=== PATIENT | female | born 1960 | race Caucasian/White ===

== ENCOUNTER 2017-04-08 21:48 | Emergency (ER) | payer OTHER ==
[~2017-04-08] VITALS: Ht 175.3 cm; Wt 90.0 kg
[~2017-04-08 21:48] MED LIST: 1-ME1LIQ PO; ALBU8I INH; BIOT10004 PO; CALC500 PO; CHOL50006 PO; CYCL1PAK PO; CYMB30CA PO; DICY10CA13 PO; FLOV44AE IN; FURO1TAB93 PO; GABA300C3 PO; HYDR200T42 PO; LEFL20TA7 PO; LIDO5%T TOP; LISI-366 PO; LORA1TAB PO; METH4PAK PO; MORP1CAP63 PO; NABU500T PO; OMEP20TA PO; PRED5TAB PO; SIMV20 PO; SYNT25TA PO; TRAZ50TA4 PO; ULTR50TA PO
[2017-04-08 21:58] VITALS: BP 190/89; PULSE 94; RESP 18; TEMP 98.5; O2SAT 95
[2017-04-08 22:25] VITALS: BP 190/102; PULSE 90; RESP 18; O2SAT 94
--- NOTE | 2017-04-08 22:28 | PD ---
HPI Chief Complaint: Pain: Acute or Chronic Time Seen by Provider: 22:24 Travel History International Travel<30 days: No Contact w/Intl Traveler<30days: No Traveled to known affect area: No History of Present Illness HPI 56-year-old female patient with history of hypertension, CHF currently on Lasix , presents to the ER today for several months history of right leg pains, started to have increased swelling that is going up the right leg over the last several weeks. She denies any fevers, new injuries, chest pains, shortness of breath, or any other issues. She also has some history of chronic back pains and is currently waiting to see pain management. Modifying Factors: None Associated Signs & Symptoms: Right leg swelling, pain Risk Factors: None PFSH Past Medical History Arthritis: Yes (RA) Cancer: No Cardiovascular Problems: Yes Diabetes: No Genitourinary: No Hepatitis: No Hiatal Hernia: No Hypertension: Yes Immune Disorder: No Musculoskeletal: Yes (LOW BACK PAIN, HX OF ARTHRITIS ) Neurologic: Yes (RHEUMATIOD ARTHRILTIS , LUPUS ) Psychiatric: Yes (DEPRESSION ) Reproductive: No Respiratory: Yes (COLD JUST FINISHED ANTIBIOTIC ) Thyroid Disease: Yes (NODULES & GOITER ) ?: Not Past Surgical History Abdominal Surgery: Yes (CHOLESECTOMY ) Section: Yes Cholecystectomy: Yes Endocrine Surgery: No Gynecologic Surgery: Yes (3 C SECTIONS ) Oral Surgery: Yes (T AND A) Social History Alcohol Use: No Tobacco Use: No (QUIT JANUARY) Substance Use: No Allergies-Medications (Allergen,Severity, Reaction): Coded Allergies: clarithromycin (Unverified Allergy, Severe, Rash, 04/08/17) morphine (Unverified Allergy, Severe, SOB, RASH SWELLING, 04/08/17) methotrexate (Unverified Allergy, Intermediate, ELEVATED LIVER ENZYMES., ) adhesive (Unverified Allergy, Unknown, 04/08/17) latex (Verified Allergy, Unknown, RASH, 04/08/17) Uncoded Allergies: CODINE (Adverse Reaction, Severe, HALLUCINATION, 03/20/13) Reported Meds & Prescriptions Reported Meds & Active Scripts Active Reported Ventolin Hfa (Albuterol Sulfate) 8 Gm Aero 2 Puff INH Q6 * SHAKE WELL BEFORE USE * Oscal 500 (Calcium Carbonate) 500 Mg Tab 500 Mg PO BID Morphine Sulfate ER (Morphine Sulfate) 30 Mg Cap 30 Mg PO Q12 Lidocaine 5 % Oin 1 Applic TOP APPLY TO: Leflunomide 20 Mg Tab 20 Mg PO DAILY Cymbalta (Duloxetine HCl) 30 Mg Cap 30 Mg PO DAILY Biotin 1 000 Tab 1,000 Mcg PO Cyclobenzaprine Hcl (Cyclobenzaprine HCl) 10 Mg Tab 10 Mg PO TID Trazodone Hcl (Trazodone HCl) 50 Mg Tab 50 Mg PO BID Methylprednisolone 4 Mg Luis F 4 Mg PO DIRECTED Dicyclomine 10 mg (Dicyclomine HCl) 10 Mg Cap 10 Mg PO QID Flovent Hfa (Fluticasone Propionate) 44 Mcg Aer 2 Puff IN BID Vitamin D (Cholecalciferol) 5,000 Unit Tab 50,000 Unit PO WEEKLY Ultram (Tramadol HCl) 50 Mg Tab 50 Mg PO Q6 PRN Simvastatin 20 mg (Simvastatin) 20 Mg Tab 1 Tab PO HS Plaquenil (Hydroxychloroquine Sulfate) 200 Mg Tab 200 Mg PO DAILY Omeprazole 20 mg (Omeprazole) 20 Mg Tab 20 Mg PO DAILY Nabumetone 500 Mg Tab 500 Mg PO Q12 Lorazepam 1 Mg Tab 1 Mg PO TID Gabapentin 300 Mg Cap 300 Mg PO TID Dicyclomine 10 mg (Dicyclomine HCl) 10 Mg Cap 10 Mg PO TID Amlodipine Besylate 10 mg (Amlodipine Besylate) 10 Mg Tab 1 Tab PO DAILY Synthroid (Levothyroxine Sodium) Unknown Strength Tab Unknown Dose PO DAILY Prednisone 5 Mg Tab 5 Mg PO DAILY Lasix (Furosemide) 40 Mg Tab 40 Mg PO DAILY Lisinopril 40 mg (Lisinopril) 40 Mg Tab 40 Mg PO Review of Systems Except as stated in HPI: all other systems reviewed are Neg Physical Exam Narrative GENERAL: Well-developed middle-age female patient currently in mild distress. Awake and oriented 3. SKIN: Focused skin assessment warm/dry. HEAD: Atraumatic. Normocephalic. EYES: Pupils equal and round. No scleral icterus. No injection or drainage. ENT: No nasal bleeding or discharge. Mucous membranes pink and moist. NECK: Trachea midline. No JVD. Supple. CARDIOVASCULAR: Regular rate and rhythm. No murmur appreciated. RESPIRATORY: No accessory muscle use. Clear to auscultation. Breath sounds equal bilaterally. GASTROINTESTINAL: Abdomen soft, non-tender, nondistended. Hepatic and splenic margins not palpable. MUSCULOSKELETAL: No obvious deformities. No clubbing. No cyanosis. Notable pitting edema of the right leg, calf tenderness. NEUROLOGICAL: Awake and alert. No obvious cranial nerve deficits. Motor grossly within normal limits. Normal speech. PSYCHIATRIC: Appropriate mood and affect; insight and judgment normal. Data Data Last Documented VS Vital Signs Date Time Temp Pulse Resp B/P (MAP) Pulse Ox O2 Delivery O2 Flow Rate FiO2 04/08/17 22:25 90 18 190/102 (131) 94 Room Air 04/08/17 21:58 98.5 Orders Orders Complete Blood Count With Diff (04/08/17 22:24) Basic Metabolic Panel (Bmp) (04/08/17 22:24) B-Type Natriuretic Peptide (04/08/17 22:24) Prothrombin Time / Inr (Pt) (04/08/17 22:24) Act Partial Throm Time (Ptt) (04/08/17 22:24) Us Leg Venous Doppler (04/08/17 22:24) Labs Laboratory Tests Test 04/08/17 22:30 White Blood Count 13.1 TH/MM3 Red Blood Count 4.53 MIL/MM3 Hemoglobin 13.8 GM/DL Hematocrit 42.2 % Mean Corpuscular Volume 93.1 FL Mean Corpuscular Hemoglobin 30.5 PG Mean Corpuscular Hemoglobin Concent 32.8 % Red Cell Distribution Width 15.5 % Platelet Count 231 TH/MM3 Mean Platelet Volume 9.6 FL Neutrophils (%) (Auto) 51.3 % Lymphocytes (%) (Auto) 36.1 % Monocytes (%) (Auto) 9.4 % Eosinophils (%) (Auto) 2.1 % Basophils (%) (Auto) 1.1 % Neutrophils # (Auto) 6.8 TH/MM3 Lymphocytes # (Auto) 4.7 TH/MM3 Monocytes # (Auto) 1.2 TH/MM3 Eosinophils # (Auto) 0.3 TH/MM3 Basophils # (Auto) 0.1 TH/MM3 CBC Comment DIFF FINAL Differential Comment Prothrombin Time 9.1 SEC Prothromb Time International Ratio 0.9 RATIO Activated Partial Thromboplast Time 26.4 SEC Blood Urea Nitrogen 16 MG/DL Creatinine 0.94 MG/DL Random Glucose 97 MG/DL Calcium Level 8.3 MG/DL Sodium Level 141 MEQ/L Potassium Level 3.8 MEQ/L Chloride Level 105 MEQ/L Carbon Dioxide Level 28.7 MEQ/L Anion Gap 7 MEQ/L Estimat Glomerular Filtration Rate 61 ML/MIN B-Type Natriuretic Peptide 26 PG/ML MDM Medical Decision Making Medical Screen Exam Complete: Yes Emergency Medical Condition: Yes Medical Record Reviewed: Yes Interpretation(s) Laboratory Tests Test 04/08/17 22:30 White Blood Count 13.1 TH/MM3 (4.0-11.0) Monocytes (%) (Auto) 9.4 % (0.0-8.0) Monocytes # (Auto) 1.2 TH/MM3 (0-0.9) Prothrombin Time 9.1 SEC (9.8-11.6) Calcium Level 8.3 MG/DL (8.5-10.1) Estimat Glomerular Filtration Rate 61 ML/MIN (>89) Differential Diagnosis Right leg swelling and pain: Dependent edema versus DVT Narrative Course Ultrasound did not show any signs of significant DVT. She has a general tenderness over the legs but I do not see any signs of infections at this point. The compartments are not tight and not suspecting other acute processes. She has had no injuries. There may be some underlying dependent edema in this case and I have asked that she tries to keep her legs up and have her follow-up with primary care doctor. She has medications that she use on a regular basis for pain already which she can take. The plan was discussed with her and she states understanding. Diagnosis Primary Impression: Leg edema, right Disposition: 01 DISCHARGE HOME Condition: Stable SoontharoNiko james MD Apr 08, 2017 22:28
[2017-04-08 22:40] LABS: AUTOMATED NEUTROPHIL # 6.8 TH/MM3 (1.8-7.7); BASOPHIL # 0.1 TH/MM3 (0-0.2); BASOPHIL % 1.1 % (0.0-2.0); EOSINOPHIL # 0.3 TH/MM3 (0-0.4); EOSINOPHIL % 2.1 % (0.0-4.0); HEMATOCRIT 42.2 % (35.0-46.0); HEMOGLOBIN 13.8 GM/DL (11.6-15.3); LYMPH % 36.1 % (9.0-44.0); LYMPHOCYTE # 4.7 TH/MM3 (1.0-4.8); MEAN CELL VOLUME 93.1 FL (80.0-100.0); MEAN CORPUSCULAR HEMOGLOBIN 30.5 PG (27.0-34.0); MEAN CORPUSCULAR HGB CONC 32.8 % (32.0-36.0); MEAN PLATELET VOLUME 9.6 FL (7.0-11.0); MONO % 9.4 % (0.0-8.0); MONOCYTE # 1.2 TH/MM3 (0-0.9); NEUT % 51.3 % (16.0-70.0); PLATELET COUNT 231 TH/MM3 (150-450); RED BLOOD COUNT 4.53 MIL/MM3 (4.00-5.30); RED CELL DISTRIBUTION WIDTH 15.5 % (11.6-17.2); WHITE BLOOD COUNT 13.1 TH/MM3 (4.0-11.0)
[2017-04-08 22:54] LABS: BICARBONATE 28.7 MEQ/L (21.0-32.0); CALCIUM 8.3 MG/DL (8.5-10.1)
[2017-04-08 22:57] LABS: INTERNATIONAL NORMALIZED RATIO 0.9 RATIO; PROTHROMBIN TIME - PATIENT 9.1 SEC (9.8-11.6)
[2017-04-08 22:58] LABS: CREATININE 0.94 MG/DL (0.50-1.00)
--- NOTE | 2017-04-08 23:10 | RADRPT ---
EXAM DATE/TIME: 04/08/2017 22:51 [place] COMPARISON: No previous studies available for comparison. INDICATIONS : Right leg swelling and pain. MEDICAL HISTORY : Hypertension. Thyroid nodules. Goiter. Glasses. Dentures. Hyperlipidemia. Arthritis. Depression. Urinary tract infection. Nausea. Vomiting. SURGICAL HISTORY : Tonsillectomy. Cholecystectomy. section. Adenoidectomy. Left shoulder surgery. ENCOUNTER: Initial ACUITY: 1 month PAIN SCORE: 4/10 LOCATION: Right leg. TECHNIQUE: Venous ultrasound of the leg was performed from the inguinal ligament to the proximal calf. Real-joceline e, color Doppler and spectral tracing, compression and augmentation techniques were used. FINDINGS: There is normal compressibility of the deep venous system from the inguinal region to the proximal ca lf. No echogenic clot is seen in the lumen of the common femoral, femoral, popliteal, and posterior tibial veins. There is a normal response of the venous system to proximal and distal augmentation an d respiration. CONCLUSION: 1. No sonographic evidence for right lower extremity DVT. Kali Summers MD on April 08, 2017 at 23:09 Board Certified Radiologist. This report was verified electronically.
[2017-04-08] MEDS ORDERED: AMLO10TA2 PO (23:34)
[2017-04-08] MEDS ORDERED: BUPR300T PO (23:34)
[2017-04-08] MEDS ORDERED: LISI40TA PO (23:34)
[2017-04-08] MEDS ORDERED: FLUT50SP EACH NARE (23:34)
[2017-04-08] MEDS ORDERED: AZEL1SPR2 EACH NARE (23:34)
[2017-04-08] MEDS ORDERED: GABA300C5 PO (23:34)
[2017-04-08] MEDS ORDERED: clonidine (23:34)
[2017-04-08] MEDS ORDERED: ACIDCAP PO (23:34)
[2017-04-08] MEDS ORDERED: ESTR0.5T PO (23:34)
[2017-04-08] MEDS ORDERED: BIOTCAP PO (23:34)
[2017-04-08] MEDS ORDERED: CHOL5000 PO (23:34)
[2017-04-08] MEDS ORDERED: FURO20TA PO (23:34)
[2017-04-08] MEDS ORDERED: ENBR50IN2 SQ (23:34)
[2017-04-08] MEDS ORDERED: MEDR5TAB3 PO (23:34)
[2017-04-08] MEDS ORDERED: ESTR0.62 VAGINAL (23:34)
[2017-04-08] MEDS ORDERED: SIMV20TA PO (23:34)
[2017-04-08] MEDS ORDERED: DULC100C PO (23:34)
[2017-04-08] MEDS ORDERED: MS C30TA5 PO ×2 (23:34)
[2017-04-08] MEDS ORDERED: LEFL1TAB3 PO (23:34)
[2017-04-08] MEDS ORDERED: LEVO150T7 PO (23:34)
[2017-04-08] MEDS ORDERED: METH8TAB3 PO (23:34)
[2017-04-08] MEDS ORDERED: DULO1CAP3 PO (23:34)
[2017-04-08] MEDS ORDERED: PLAQ200T PO (23:34)
[2017-04-09 00:01] VITALS: BP 175/73
== END 2017-04-09 00:03 | disposition home or self-care (01) ==
LOC: PHED 21:48
DX: R60.0 Localized edema (principal); I11.0 Hypertensive heart disease with heart failure; I50.9 Heart failure, unspecified; M06.9 Rheumatoid arthritis, unspecified; M32.9 Systemic lupus erythematosus, unspecified; F32.9 Major depressive disorder, single episode, unspecified; E07.9 Disorder of thyroid, unspecified; Z87.891 Personal history of nicotine dependence
CPT/HCPCS: 80048; 83880; 85025; 85610; 85730; 93971; 99284

== ENCOUNTER → 2017-05-24 | Day surgery (SDC) | payer OTHER ==
[~2017-05-24] MED LIST changes: -1-ME1LIQ PO; +ACIDCAP PO; -ALBU8I INH; +AMLO10TA2 PO; +AZEL1SPR2 EACH NARE; -BIOT10004 PO; +BIOTCAP PO; +BUPIVACAINE HCL PF 0.25% 10 ML VIAL ONE; +BUPR300T PO; -CALC500 PO; +CHOL5000 PO; -CHOL50006 PO; -CYCL1PAK PO; -CYMB30CA PO; -DICY10CA13 PO; +DULC100C PO; +DULO1CAP3 PO; +ENBR50IN2 SQ; +ESTR0.5T PO; +ESTR0.62 VAGINAL; -FLOV44AE IN; +FLUT50SP EACH NARE; -FURO1TAB93 PO; +FURO20TA PO; -GABA300C3 PO; +GABA300C5 PO; -HYDR200T42 PO; +HYDROCORTISONE SOD SUCCINATE 100 MG VIAL ONE; +ISOSULFAN BLUE 50 MG/5 ML VIAL SQ ONE; +KETOROLAC TROMETHAMINE 30 MG/ML (IVP) VIAL ONE; +LACTATED RINGER'S 1000 ML INJ 1,000 ML ONE; +LEFL1TAB3 PO; -LEFL20TA7 PO; +LEVO150T7 PO; -LIDO5%T TOP; -LISI-366 PO; +LISI40TA PO; -LORA1TAB PO; +MEDR5TAB3 PO; +MEPERIDINE HCL 25 MG/ML VIAL ONE; -METH4PAK PO; +METH8TAB3 PO; +MIDAZOLAM HCL 2 MG/2 ML VIAL ONE; -MORP1CAP63 PO; +MS C30TA5 PO; -NABU500T PO; -OMEP20TA PO; +ONDANSETRON HCL 4 MG/2 ML VIAL IV PUSH ONE; +PLAQ200T PO; -PRED5TAB PO; +PROPOFOL 200 MG/20 ML AMP IV ONE; -SIMV20 PO; +SIMV20TA PO; +SODIUM CHLORIDE 0.9% INJ 10 ML ONE; -SYNT25TA PO; -TRAZ50TA4 PO; -ULTR50TA PO; +clonidine
--- NOTE | 2017-05-24 15:58 | MP ---
cc: Jyothi Chavez MD DATE OF OPERATION: 05/24/2017 DATE OF PROCEDURE: 05/24/2017 PREOPERATIVE DIAGNOSIS: Clinical stage I right breast cancer. POSTOPERATIVE DIAGNOSIS: Clinical stage I right breast cancer. PROCEDURE PERFORMED: Right breast needle localized lumpectomy, intraoperative radiation therapy, and right axillary sentinel lymph node biopsy. SURGEON: Jyothi Chavez MD ANESTHESIA: General via LMA device. INDICATIONS FOR PROCEDURE: The patient is a 56-year-old female with a clinical stage I right breast cancer. She has opted for breast conservation and intraoperative radiation and now presents for the procedure. FINDINGS AT THE TIME OF SURGERY: Three sentinel lymph nodes were identified. Number 1 had a count of 338, number 2 had a count of 161, and number 3 had a count of 66. Touch prep was not performed. A specimen ultrasound did demonstrate an intact lesion and biopsy clip within the specimen. DESCRIPTION OF PROCEDURE: After informed consent was obtained and site verification was performed, the patient was brought to the radiology suite where she underwent needle localization of her tumor at 10 o'clock 7 cm from the nipple, as well as peritumoral radionuclide injection. She was then brought to the major operating room where she underwent general anesthesia via an LMA device. She received a single dose of IV Ancef and sequential compression hose were placed, 3 mL of half-strength Lymphazurin were injected in the subareolar right breast and a 5-minute massage was performed. The right breast and arm were then prepped and draped in sterile fashion. A crescent incision was created at 10 o'clock 7 cm from the nipple near the localization wire after anesthetizing with 0.5% Marcaine plain. Both sharp and electrocautery dissection were used to mobilize the lumpectomy specimen and the wire was identified and secured with a hemostat. The wire was cut off the skin with a pin cutters and a 2-0 silk transfixion suture was placed at the wire entry point into the breast tissue. Circumferential dissection was then completed around the wire and the specimen was oriented with 2 sutures laterally, 1 long suture anteriorly, and 1 short suture superiorly. Inspection of the specimen did demonstrate that the superior and inferior margins appeared close and each of these was sharply reexcised with a stitch on the new margin. Hemostasis was easily obtained with electrocautery. The wounds were closed using interrupted 3-0 Vicryl subcutaneous suture and a 4-0 Monocryl subcuticular suture. Good hemostasis was noted and a #0 Prolene pursestring suture was placed in the subcutaneous tissue, approximately 1 cm below the skin. A 3.5 cm intraoperative radiation applicator was placed in the cavity and tightening the pursestring demonstrated good position of the catheter tip. Ultrasound was used to confirm that the superior, inferior, medial, and lateral distances between the skin and the applicator were greater than 2 cm. The applicator was then placed in the sterile dressing and secured to the radiation machine. The applicator was again placed in the lumpectomy cavity and the pursestring suture was secured. Ultrasound again confirmed good positioning of the applicator greater than 2 cm below the skin in all directions. Two moist laps as well as 2 lead small richards were then placed around the applicator and radiation therapy commenced for 17 minutes. Following completion of therapy, the pursestring suture was cut and the applicator was removed from the lumpectomy cavity. Good hemostasis was again noted and the wound was closed using interrupted 3-0 Vicryl subcutaneous sutures and a 4-0 Monocryl subcuticular suture. Attention was then turned to the axilla, where an incision was anesthetized at the inferior aspect of the right axillary hairline. Both sharp and electrocautery dissection were performed until the clavipectoral fascia was divided and the level one axilla was entered. There was some bulging near the chest wall above the long thoracic neurovascular bundles and is area of fatty tissue was dissected free from surrounding structures using the Harmonic scalpel. There was a sentinel node with a count of 338 in this tissue and some smaller adjacent nodes were sent as a permanent specimen. There was also a palpable lymph node in the axillary tail of [facility] and this was circumferentially dissected free from surrounding structures using Harmonic scalpel with the counts as noted. Hemostasis was easily obtained and the wound was closed using interrupted 3-0 Vicryl subcutaneous sutures and a 4-0 Monocryl subcuticular suture. Steri-Strips and a sterile dressing were applied. The patient tolerated the procedure well, with an estimated blood loss of less than 50 mL and she was extubated, and brought to the recovery room in good condition. Sponge and needle counts were correct at the conclusion of the case. The patient was extubated and brought to recovery in good condition. MD MARILYNN Yung/LACI , 03:03 PM , 03:57 PM
== END | disposition home or self-care (01) ==
LOC: ESDC 07:35
PROVIDERS: ATTEND Surgery
DX: C50.911 Malignant neoplasm of unspecified site of right female breast (principal)
CPT/HCPCS: 00400; 01610; 19294; 19301; 38525; 38792; 88305; 88307; J1720; J1885; J2175; J2250; J2405; J3010; J7120; Q9968; 77290; 77300; 77334; 77370; 77424

== ENCOUNTER → 2017-08-01 | Outpatient (CLI) | payer OTHER ==
[~2017-08-01] MED LIST changes: +ANAS1TAB PO; -BUPIVACAINE HCL PF 0.25% 10 ML VIAL ONE; +CALC1TAB87 PO; +CLON0.1T PO; +FENT100D T-DERMAL; +FENT50DI T-DERMAL; -HYDROCORTISONE SOD SUCCINATE 100 MG VIAL ONE; -ISOSULFAN BLUE 50 MG/5 ML VIAL SQ ONE; -KETOROLAC TROMETHAMINE 30 MG/ML (IVP) VIAL ONE; -LACTATED RINGER'S 1000 ML INJ 1,000 ML ONE; -MEPERIDINE HCL 25 MG/ML VIAL ONE; -MIDAZOLAM HCL 2 MG/2 ML VIAL ONE; +MULT-65 PO; -ONDANSETRON HCL 4 MG/2 ML VIAL IV PUSH ONE; -PROPOFOL 200 MG/20 ML AMP IV ONE; -SODIUM CHLORIDE 0.9% INJ 10 ML ONE
== END ==
LOC: CPRE 11:43
PROVIDERS: ATTEND Neurological Surgery
DX: Z01.812 Encounter for preprocedural laboratory examination (principal); M51.36 Other intervertebral disc degeneration, lumbar region; M51.16 Intervertebral disc disorders with radiculopathy, lumbar region
CPT/HCPCS: 87640; 87641

== ENCOUNTER 2017-10-13 12:02 | Inpatient (IN) ==
--- NOTE | 2017-10-13 13:23 | ED ---
HPI General Chief complaint: Fall Stated complaint: Fall x 0600 Lt Side Groin/Knee Pain Time Seen by Provider: 10/13/17 13:23 History of Present Illness HPI narrative: 57-year-old female with a history of hypertension, hyperlipidemia , chronic low back pain, RA presents to the emergency department for evaluation of left knee pain. The patient underwent an L5-S1 lumbar fusion in July [address] Servin. States that since then she has had dropfoot of the left leg. States that over the past 2 weeks her left leg has given out on her several times and caused her to fall. States that she ambulates with a walker however she still falls and fall onto her left side. States that she was seen by sports medicine last week and had an x-ray of her left knee and hip it was told that it was unremarkable. States that she has fallen twice since then and the left knee is causing her pain and is swollen. Pain is aggravated with movement and weightbearing. She is also having increased pain in her back near her surgical site since the falls. Denies any fever, chills, nausea, vomiting, numbness or tingling. She does have weakness in the left leg, reports this is worse over the last week since her falls. She takes methadone for pain and follows up with pain management. No other complaints. Related Data Home Medications Medication Instructions Recorded Confirmed acidophilus-pectin, citrus 1 tab PO DIRECTED 10/13/17 10/13/17 [Acidophilus Probiotic] anastrozole 1 mg PO DAILY 10/13/17 10/13/17 azelastine 2 spray INTRANASAL Q12H 10/13/17 10/13/17 biotin 2,500 mcg PO DAILY 10/13/17 10/13/17 bupropion HCl 300 mg PO QAM 10/13/17 10/13/17 cholecalciferol (vitamin D3) 5,000 unit PO DAILY 10/13/17 10/13/17 clonidine HCl 0.1 mg PO PRN 10/13/17 10/13/17 diltiazem HCl [DILT-XR] 180 mg PO DAILY 10/13/17 10/13/17 duloxetine 60 mg PO DAILY 10/13/17 10/13/17 fluticasone 1 spray INTRANASAL DAILY 10/13/17 10/13/17 furosemide 20 mg PO DAILY 10/13/17 10/13/17 hydroxychloroquine 200 mg PO BID 10/13/17 10/13/17 leflunomide 20 mg PO DAILY 10/13/17 10/13/17 levothyroxine 175 mcg PO DAILY 10/13/17 10/13/17 lisinopril 40 mg PO DAILY 10/13/17 10/13/17 methadone 10 mg PO Q4-6H PRN 10/13/17 10/13/17 methylprednisolone 4 mg PO DAILY 10/13/17 10/13/17 naproxen sodium [Aleve] 220 mg PO BID 10/13/17 10/13/17 pregabalin [Lyrica] 25 mg PO BID 10/13/17 10/13/17 simvastatin 20 mg PO QPM 10/13/17 10/13/17 Allergies Allergy/AdvReac Type Severity Reaction Status Date / Time clarithromycin Allergy Severe Rash Verified 10/13/17 12:14 codeine Allergy Severe ITCHING Verified 10/13/17 12:14 morphine Allergy Severe SOB, RASH Verified 10/13/17 12:14 SWELLING methotrexate Allergy Intermediate ELEVATED Verified 10/13/17 12:14 LIVER ENZYMES. adhesive Allergy Unknown Generalized Verified 10/13/17 12:14 Rash latex Allergy Unknown RASH Verified 10/13/17 12:14 Review of Systems ROS: all other systems reviewed are negative PMFSH Medical History Medical History FH: mastectomy (Acute) Foot drop, left (Acute) Left knee pain (Acute) Back pain (Acute) Breast cancer (Acute) Chest pain (Acute) Depression (Acute) Hypertension (Acute) Surgical History Surgical History H/O section (Acute) H/O shoulder surgery (Acute) History of back surgery (Acute) Social History Social History Substance History: No History of Abuse Second Hand Smoke Exposure: No Smoking Status: Former smoker Tobacco Type: Cigarettes How Often Do You Have a Drink Containing Alcohol: Never Recent Travel in [facility] within the Last 8 Weeks: No Recent Out of Country Travel within the Last 8 Weeks: No Immunization History Tetanus Immunization: <5 Years Hx Influenza Vaccine This Season: Yes Exam Narrative Exam Narrative: GENERAL: Well-nourished and well-developed pleasant patient in no acute distress who is nontoxic appearing. SKIN: Warm and dry without any obvious rashes or lesions. HEAD: Normocephalic and atraumatic. EYES: No injection, drainage, or hyphema noted. PERRLA. EOMI. ENT: No nasal drainage noted. Oropharynx is clear. NECK: Supple and the trachea is midline. CARDIOVASCULAR: Regular rate and rhythm. RESPIRATORY: Breath sounds are equal bilaterally with no accessory muscle use, wheezing, rhonchi, or crackles. MUSCULOSKELETAL: Bruising noted over left hand knuckles, reports injured her hand when she fell also. Mild swelling and tenderness to palpation of the left knee, patient holding in a flexed position, reports pain is increased with extension. No obvious deformities, swelling, cyanosis, or ecchymosis is present throughout the upper and lower extremities. Patient has full range of motion. Distal pulses are 2+ throughout. Left leg strength 4/5 from knee down , 5/5 hip flexors. 5/5 right leg. BACK: Surgical scar noted to lumbar spine with mild tenderness and swelling, no erythema. No obvious deformities or crepitus noted throughout the thoracic and lumbar vertebrae. NEUROLOGICAL: Awake, alert, and oriented. Normal speech and gait. Cranial nerves are grossly intact. Course Initial Documented Vital Signs Temperature 97.7 F 10/13/17 12:12 Pulse Rate 91 H 10/13/17 12:12 Respiratory Rate 18 10/13/17 12:12 Blood Pressure 174/103 H 10/13/17 12:12 Pulse Oximetry 98 10/13/17 12:12 Last Documented Vital Signs Temperature 97.7 F 10/13/17 12:12 Pulse Rate 87 10/13/17 18:39 Respiratory Rate 16 10/13/17 18:39 Blood Pressure 170/94 H 10/13/17 18:39 Pulse Oximetry 94 L 10/13/17 18:39 Medical Decision Making [facility] Narrative Medical decision making narrative: 57-year-old female presents to the emergency department for evaluation of left knee pain, back pain and hand pain status post multiple falls. Patient is afebrile, vital signs are stable. Patient has dropfoot secondary to recent L spine fusion in July 2017. Her leg continues to "give out" on her causing her to fall. X-rays will be obtained of the left hip , knee, left hand and CT imaging of the L-spine will be performed. Patient administered Dilaudid 1 mg IM. X-ray of the left knee is negative. X-ray of the left hand is negative. Patient refusing x-ray of the left hip due to significant pain when attempting to lay on the x-ray table even after a second dose of Dilaudid 1 mg IM. Patient also given Percocet 5325 mg orally for pain. CT of the lumbar spine shows a superior endplate fracture of L4 not present on prior MRI. Neural foraminal compromise bilateral L3-4, bilateral L4-5, bilateral L5-S1. Moderate thecal sac stenosis L3-4 and to a slight degree L4- 5. Lateral recess stenosis left L4-5 and left L5-S1. I called and spoke with the neurosurgeon on-call Dr. Johnson regarding the patient 's presentation. He reviewed the patient's images and requests her to be transferred to the main for further evaluation. Recommends patient NPO at midnight until otherwise specified. I spoke with Dr. Diaz [facility] who agrees to admit patient to his service. Medical Screen Exam Complete: Yes Emergency Medical Condition: Yes Differential Diagnosis Differential Diagnosis: Contusion versus fracture versus sprain versus radiculopathy Lab Data Result diagrams: 10/13/17 17:15 10/13/17 17:15 Lab Results 10/13/17 10/13/17 10/13/17 Range/Units 17:15 17:15 17:15 CBC w Diff Auto diff final WBC 11.3 H (4.0-11.0) th/mm3 RBC 4.61 (4.00-5.30) mil/mm3 Hgb 14.0 (11.6-15.3) gm/dL Hct 41.9 (35.0-46.0) % MCV 90.8 (80.0-100.0) fL MCH 30.4 (27.0-34.0) pg MCHC 33.4 (32.0-36.0) % RDW 16.0 (11.6-17.2) % Plt Count 276 (150-450) th/mm3 MPV 10.1 (7.0-11.0) fL Neut % (Auto) 61.9 (16.0-70.0) % Lymph % (Auto) 27.4 (9.0-44.0) % [place] % (Auto) 8.0 (0.0-8.0) % Eos % (Auto) 2.3 (0.0-4.0) % Baso % (Auto) 0.4 (0.0-2.0) % Neut # (Auto) 7.0 (1.8-7.7) th/mm3 Lymph # (Auto) 3.1 (1.0-4.8) th/mm3 [place] # (Auto) 0.9 (0.0-0.9) th/mm3 Eos # (Auto) 0.3 (0.0-0.4) th/mm3 Baso # (Auto) 0.0 (0.0-0.2) th/mm3 WBC Differential . Differential Comment . PT 9.8 (9.8-11.6) sec INR 1.0 Ratio APTT 30.4 H (24.3-30.1) sec Sodium 139 (136-145) meq/L Potassium 3.5 (3.5-5.1) meq/L Chloride 103 (98-107) meq/L Carbon Dioxide 30.6 (21.0-32.0) meq/L Anion Gap 5 (5-15) meq/L BUN 11 (7-18) mg/dL Creatinine 0.73 (0.50-1.00) mg/dL Estimated GFR 82 L (>89) mL/min Random Glucose 84 (74-106) mg/dL Calcium 8.8 (8.5-10.1) mg/dL Total Bilirubin 0.3 (0.2-1.0) mg/dL AST 25 (15-37) U/L ALT 35 (10-53) U/L Alkaline Phosphatase 134 H (45-117) U/L Total Protein 7.7 (6.4-8.2) g/dL Albumin 4.1 (3.4-5.0) g/dL Imaging Data Radiologist's impression: Hand X-Ray 10/13/17 13:47 CONCLUSION: Unremarkable study. Knee X-Ray 10/13/17 13:47 CONCLUSION: No evidence of recent bony injury. Lumbar Spine CT 10/13/17 13:47 CONCLUSION: 1. There is a fracture of superior endplate of L4 not present on the prior MRI as the appearance of a limbus vertebrae and postsurgical changes as above. 2. Neural foraminal compromise bilateral L3-4, bilateral L4-5, bilateral L5-S1. 3. 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 4. Lateral recess stenosis left L4-5 and left L5-S1. Discharge Plan Discharge Disposition Patient Disposition: 30 Still Patient Discharge Condition Condition: Stable Discharge Details Diagnosis: L4 vertebral fracture, Left leg weakness, Intractable back pain Physicians Team ED Provider: Niko Velazquez ED Midlevel Provider: Мария Leija Primary Care Provider: Juhi Cooper Attending Provider: Ceferino Diaz Other Providers: Raymond Johnson Discharge Interventions Interventions: Vital Signs Last Done: 10/13/17 18:39 Status ED Status: Admitted Patient
[2017-10-13] MEDS ORDERED: HYDROmorphone PF Inj 2 MG/ML Vial IM ONE ×2 (13:47→14:25)
--- NOTE | 2017-10-13 14:33 | XR ---
EXAM DATE: 10/13/2017 2:30 PM EDT AGE/SEX: 57 years / Female INDICATIONS: Fell today CLINICAL DATA: This is the patient's initial encounter. Patient reports that signs and symptoms have been present for 1 day and indicates a pain score of 9/10. MEDICAL/SURGICAL HISTORY: . Hypertension. Gastroesophageal reflux disease. Carcinoma, breast. A rthritis. Lupus. Fusion, lumbar. Cholecystectomy. section. Thyroidectomy. COMPARISON: No prior exams available for comparison. FINDINGS: Bony structures are intact and in normal alignment. Joints are intact without dislocation or signifi cant arthropathy. Osseous density is normal. Soft tissues are unremarkable. No radiopaque foreign bodies seen. CONCLUSION: No evidence of recent bony injury. Electronically signed by: Quoc Jones MD 10/13/2017 2:31 PM EDT
--- NOTE | 2017-10-13 15:30 | CT ---
EXAM DATE: 10/13/2017 3:19 PM EDT AGE/SEX: 57 years / Female INDICATIONS: Fall, Recent lumbar surgery per patient CLINICAL DATA: This is the patient's initial encounter. Patient reports that signs and symptoms have been present for 1 day and indicates a pain score of 9/10. MEDICAL/SURGICAL HISTORY: Carcinoma, breast. Hypertension. Mastectomy, right. section. L umbar surgery RADIATION DOSE: 40.33 CTDI (mGy) COMPARISON: [facility], MR LUMBAR SPINE W/O CONTRAST, 02/07/2017. . TECHNIQUE: Contiguous axial images were acquired with a multirow detector CT scanner without contras t. Multiplanar reconstructions in the sagittal and coronal plane were also performed. Using automate d exposure control and adjustment of the mA and/or kV according to patient size, radiation dose was k ept as low as reasonably achievable to obtain optimal diagnostic quality images. DICOM format image data is available electronically for review and comparison. FINDINGS: There is a fracture of the superior endplate of L4 at the appearance of a limbus vertebrae with a dis placed fragment. There is no spondylolisthesis. L1-L2: No appreciable compromise to the thecal sac, or the exiting nerve roots is seen. The neural foramina and lateral recesses are patent bilaterally. L2-L3: Slight bulging disc and hypertrophic changes are seen with indentation on the thecal sac and no significant compromise to the thecal sac or the exiting nerve roots. L3-L4: Significant degenerative changes are present in the disc space and facets. There is moderate neural foramina compromise bilaterally due to bulging disc and hypertrophic changes. There is moder ate overall thecal sac stenosis due to central disc/osteophyte complex and hypertrophic changes. L4-L5: There is evidence for prior laminectomy on the left. There is anterior fusion at this level with transpedicular surgical screws traversing L4, L5, and S1 on the left side. There is moderate gideon ral foramina compromise bilaterally due to bulging disc and hypertrophic changes. There is moderate to severe left-sided lateral recess compromise due to bulging disc and hypertrophic changes. Slight overall thecal sac stenosis is suspected. L5-S1: Significant degenerative changes are present in the disc space and facets. There is moderate to severe left-sided lateral recess compromise due to bulging disc and hypertrophic changes There is slight neural foramina compromise bilaterally due to bulging disc and hypertrophic changes. CONCLUSION: 1. There is a fracture of superior endplate of L4 not present on the prior MRI as the appearance of a limbus vertebrae and postsurgical changes as above. 2. Neural foraminal compromise bilateral L3-4, bilateral L4-5, bilateral L5-S1. 3. 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 4. Lateral recess stenosis left L4-5 and left L5-S1. Electronically signed by: Steven Baron MD 10/13/2017 3:28 PM EDT
--- NOTE | 2017-10-13 15:59 | XR ---
EXAM DATE: 10/13/2017 3:56 PM EDT AGE/SEX: 57 years / Female INDICATIONS: Pain due to fall. CLINICAL DATA: This is the patient's initial encounter. Patient reports that signs and symptoms have been present for 1 day and indicates a pain score of 9/10. MEDICAL/SURGICAL HISTORY: . Carcinoma, breast. Hypertension. . Mastectomy, right. se ction. Lumbar surgery COMPARISON: No prior exams available for comparison. FINDINGS: No definite fractures, or dislocations are identified. No definite lytic or sclerotic les ion is seen. The joint spaces are well maintained. CONCLUSION: Unremarkable study. Electronically signed by: Steven Baron MD 10/13/2017 3:57 PM EDT
[2017-10-13 17:21] LABS: Baso % (Auto) 0.4 % (0.0-2.0); Eos # (Auto) 0.3 th/mm3 (0.0-0.4); Eos % (Auto) 2.3 % (0.0-4.0); Hematocrit 41.9 % (35.0-46.0); Lymph # (Auto) 3.1 th/mm3 (1.0-4.8); Lymph % (Auto) 27.4 % (9.0-44.0); Mean Corpuscular HGB Conc 33.4 % (32.0-36.0); Mean Corpuscular Hemoglobin 30.4 pg (27.0-34.0); Mean Corpuscular Volume 90.8 fL (80.0-100.0); Mean Platelet Volume 10.1 fL (7.0-11.0); Mono # (Auto) 0.9 th/mm3 (0.0-0.9); Neut % (Auto) 61.9 % (16.0-70.0); Platelet Count 276 th/mm3 (150-450); Red Blood Count 4.61 mil/mm3 (4.00-5.30); White Blood Count 11.3 th/mm3 (4.0-11.0)
[2017-10-13 17:29] LABS: Chloride 103 meq/L (98-107); Potassium 3.5 meq/L (3.5-5.1); Sodium 139 meq/L (136-145)
[2017-10-13 17:32] LABS: Albumin 4.1 g/dL (3.4-5.0); Anion Gap 5 meq/L (5-15); Calcium 8.8 mg/dL (8.5-10.1); Carbon Dioxide 30.6 meq/L (21.0-32.0)
[2017-10-13 17:33] LABS: Blood Urea Nitrogen 11 mg/dL (7-18); Glucose,Random 84 mg/dL (74-106)
[2017-10-13 17:34] LABS: Activated Partial Thrombo Time 30.4 sec (24.3-30.1); Prothrombin Time 9.8 sec (9.8-11.6)
[2017-10-13 17:36] LABS: Alanine Aminotransferase 35 U/L (10-53); Aspartate Aminotransferase 25 U/L (15-37); Glomerular Filtration Rate 82 mL/min (>89)
[2017-10-13 17:37] LABS: Total Protein 7.7 g/dL (6.4-8.2)
[2017-10-13 17:38] LABS: Alkaline Phosphatase 134 U/L (45-117)
[2017-10-13] MEDS ORDERED: HYDROmorphone PF Inj 2 MG/ML Vial IV.PUSH PRN (18:14)
[2017-10-13] MEDS: KCL 20 mEq/D5W/NaCl 0.45% Inj 1,000 ML IV.CONT SCH (18:28)
[2017-10-13] MEDS: Methadone 10 MG Tablet PO PRN (22:05)
[2017-10-13] MEDS ORDERED: Non-Formulary Drug (Bupropion Hcl [Bupropion Hcl] 300 MG) PO SCH (22:15)
[2017-10-13] MEDS ORDERED: Acetaminophen 325 MG Tablet PO PRN (22:22)
[2017-10-13] MEDS ORDERED: Bisacodyl 10 MG Supp RECTAL PRN (22:22)
[2017-10-13] MEDS: HYDROmorphone PF Inj 2 MG/ML Vial IV.PUSH PRN (22:31)
[2017-10-14] MEDS: Pregabalin 25 MG Capsule PO SCH ×2 (00:07→12:42)
[2017-10-14] MEDS: Docusate Sodium 100 MG Capsule PO SCH ×2 (00:07→12:42)
[2017-10-14] MEDS: Hydroxychloroquine 200 MG Tablet PO SCH ×2 (00:07→12:42)
[2017-10-14] MEDS: HYDROmorphone PF Inj 2 MG/ML Vial IV.PUSH PRN ×3 (01:34→09:31)
[2017-10-14] MEDS: Methadone 10 MG Tablet PO PRN ×2 (02:36→06:23)
[2017-10-14] MEDS ORDERED: Levothyroxine 100 MCG Tablet PO SCH (06:00)
[2017-10-14] MEDS ORDERED: buPROPion 150 MG XL 24 HR Tablet PO SCH (06:00)
[2017-10-14] MEDS ORDERED: Levothyroxine 75 MCG Tablet PO SCH (06:00)
[2017-10-14] MEDS: KCL 20 mEq/D5W/NaCl 0.45% Inj 1,000 ML IV.CONT SCH (06:23)
--- NOTE | 2017-10-14 06:24 | XR ---
EXAM DATE: 10/14/2017 5:49 AM EDT AGE/SEX: 57 years / Female INDICATIONS: Cough. CLINICAL DATA: This is the patient's subsequent encounter. Patient reports that signs and symptoms h ave been present for 2 days and indicates a pain score of 0/10. MEDICAL/SURGICAL HISTORY: Carcinoma, breast. Hypertension. Mastectomy, right. sectio n. Lumbar surgery. COMPARISON: [facility], CHEST SINGLE AP, 03/20/2013. . FINDINGS: A single AP view of the chest demonstrates the lungs to be symmetrically aerated without evidence of mass, infiltrate or effusion. Minimal linear atelectasis within the left base. The cardiomediastinal contours are unremarkable. 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 CONCLUSION: Negative examination. Electronically signed by: Jace Stoner MD 10/14/2017 6:23 AM EDT
[2017-10-14] MEDS ORDERED: Anastrozole 1 MG Tablet PO SCH (09:00)
[2017-10-14] MEDS ORDERED: dilTIAZem CD 180 MG Capsule PO SCH (09:00)
[2017-10-14] MEDS ORDERED: Non-Formulary Drug (Leflunomide [Leflunomide] 20 MG) PO SCH (09:00)
[2017-10-14] MEDS ORDERED: Furosemide 20 MG Tablet PO SCH (09:00)
[2017-10-14] MEDS ORDERED: Duloxetine 60 MG DR Capsule PO SCH (09:00)
[2017-10-14] MEDS ORDERED: Non-Formulary Drug (Levothyroxine [Levothyroxine] 175 MCG) PO SCH (09:00)
[2017-10-14] MEDS ORDERED: AZELASTINE NASAL SCH (09:00)
[2017-10-14] MEDS ORDERED: DILTIAZEM HCL 180 MG PO SCH (09:00)
[2017-10-14] MEDS ORDERED: Lisinopril 20 MG Tablet PO SCH (09:00)
--- NOTE | 2017-10-14 09:12 | P.HP ---
<Tiffany Cano W - Last Filed: 10/14/17 11:53> History of Present Illness Primary Care Physician: Juhi Cooper Chief Complaint: Fall Lt Knee Pain History of Present Illness: This is a 57-year-old female with a history of hypertension, hyperlipidemia, chronic low back pain, RA, [place] esophagus, Right breast cancer, Chronic Kidney disease, Colon polyps, Degenerative cervical disc, Diverticulosis, GERD, Hypertension, Hypothyroidism s/p thyroidectomy who presents to the emergency department for evaluation of left knee pain. The patient underwent an L5-S1 lumbar fusion in July [address] Servin. States that since then she has had dropfoot of the left leg. States that over the past 2 weeks her left leg has given out on her several times and caused her to fall. States that she ambulates with a walker however she still falls and fall onto her left side. States that she was seen by sports medicine last week and had an x-ray of her left knee and hip it was told that it was unremarkable. States that she has fallen twice since then and the left knee is causing her pain and is swollen. Pain is aggravated with movement and weightbearing. She is also having increased pain in her back near her surgical site since the falls. Denies any fever, chills, nausea, vomiting, numbness or tingling. She does have weakness in the left leg, reports this is worse over the last week since her falls. She takes methadone for pain and follows up with pain management. No other complaints. PAST MEDICAL HISTORY: [place] esophagus Right breast invasive moderately differentiated carcinoma s/p lumpectomy with sentinel lymph node biopsy and intraoperative radiation 05/24/2017 Chronic Kidney disease Colon polyps Degenerative cervical disc Diverticulosis GERD (gastroesophageal reflux disease) Hemorrhoids Hypertension Hypothyroidism s/p thyroidectomy Rheumatoid arthritis PAST SURGICAL HISTORY: 3 sections Cholecystectomy Colonoscopy - 2014 EGD with biopsy - 2014 Shoulder surgery Thyroidectomy Tonsillectomy Right breast lumpectomy with sentinel lymph node biopsy and intraoperative radiation 05/24/2017 FAMILY HISTORY: Ms. Dobbs's mother is alive. Her father is . Ms. Dobbs has 2 sons: 2 alive. She has 1 daughter who is alive. SOCIAL HISTORY: Ms. Dobbs is . Occasional ETOH use She was a daily smoker who has smoked 1.0 pack/day for 30 years reports that she has quit smoking, now using E-cigarettes - Diagnosis (1) Lumbar foraminal stenosis (2) L4 vertebral fracture Inpatient Certification: I certify that the inpatient services were ordered in accordance with Medicare regulations governing the order. This includes certification that hospital inpatient services are reasonable and necessary and in the case of services not specified as inpatient-only under 42 CFR 419.22(n), that they are appropriately provided as inpatient services in accordance to with the 2-midnight benchmark under 43 CFR 412.3(e) Estimated Total Length of Stay (Days): 3 Plans for Post Hospital Care: Not yet determined Review of Systems All other systems reviewed negative except as stated in HPI PMFSH - History History Provided By: Patient, Family Member - Medical History Medical History: Medical History (Last Reviewed 10/14/17 @ 07:37 by Luiz Edwards) FH: mastectomy Foot drop, left Left knee pain Back pain Breast cancer Chest pain Depression Hypertension - Surgical History Surgical History: Surgical History (Last Reviewed 10/14/17 @ 10:04 by Raymond Johnson MD) H/O section H/O shoulder surgery History of back surgery - Tobacco History Second Hand Smoke Exposure: No Tobacco Use In Past 30 Days: No Smoking Status: Former smoker Tobacco Type: Cigarettes - Alcohol History How Often Do You Have a Drink Containing Alcohol: Never - Substance Use History Substance History: No History of Abuse - Travel History Recent Travel in the [place] Within the Last 8 Weeks: No Recent Travel Out of the Country Within the Last 8 Weeks: No - Immunization History Tetanus Immunization: <5 Years Hx Influenza Vaccine This Season: Yes Medications and Allergies Allergies Allergy/AdvReac Type Severity Reaction Status Date / Time clarithromycin Allergy Severe Rash Verified 10/13/17 12:14 codeine Allergy Severe ITCHING Verified 10/13/17 12:14 morphine Allergy Severe SOB, RASH Verified 10/13/17 12:14 SWELLING methotrexate Allergy Intermediate ELEVATED Verified 10/13/17 12:14 LIVER ENZYMES. adhesive Allergy Unknown Generalized Verified 10/13/17 12:14 Rash latex Allergy Unknown RASH Verified 10/13/17 12:14 Home Medications Medication Instructions Recorded Confirmed Type acidophilus-pectin, citrus 1 tab PO DIRECTED 10/13/17 10/13/17 History [Acidophilus Probiotic] anastrozole 1 mg PO DAILY 10/13/17 10/13/17 History azelastine 2 spray INTRANASAL Q12H 10/13/17 10/13/17 History biotin 2,500 mcg PO DAILY 10/13/17 10/13/17 History bupropion HCl 300 mg PO QAM 10/13/17 10/13/17 History cholecalciferol (vitamin D3) 5,000 unit PO DAILY 10/13/17 10/13/17 History clonidine HCl 0.1 mg PO PRN 10/13/17 10/13/17 History diltiazem HCl [DILT-XR] 180 mg PO DAILY 10/13/17 10/13/17 History duloxetine 60 mg PO DAILY 10/13/17 10/13/17 History fluticasone 1 spray INTRANASAL DAILY 10/13/17 10/13/17 History furosemide 20 mg PO DAILY 10/13/17 10/13/17 History hydroxychloroquine 200 mg PO BID 10/13/17 10/13/17 History leflunomide 20 mg PO DAILY 10/13/17 10/13/17 History levothyroxine 175 mcg PO DAILY 10/13/17 10/13/17 History lisinopril 40 mg PO DAILY 10/13/17 10/13/17 History methadone 10 mg PO Q4-6H PRN 10/13/17 10/13/17 History methylprednisolone 4 mg PO DAILY 10/13/17 10/13/17 History naproxen sodium [Aleve] 220 mg PO BID 10/13/17 10/13/17 History pregabalin [Lyrica] 25 mg PO BID 10/13/17 10/13/17 History simvastatin 20 mg PO QPM 10/13/17 10/13/17 History omeprazole magnesium [Prilosec OTC] 20 mg PO BID 10/14/17 10/14/17 History Active Medications: Active Medications Acetaminophen (Tylenol) 650 mg PO Q4H PRN PRN Reason: Temp > 100.4 Al Hydroxide/Mg Hydroxide (Milk Of Magnesia Liq) 30 ml PO Q12H PRN PRN Reason: Mild Constipation Anastrozole (Arimidex) 1 mg PO DAILY SHERIE Bisacodyl (Dulcolax Supp) 10 mg RECTAL DAILY PRN PRN Reason: SEVERE CONSITIPATION Bupropion HCl (Wellbutrin Xl) 300 mg PO DAILY@0600 [facility] Last Admin: 10/14/17 05:42 Dose: 300 mg Clonidine HCl (Catapres) 0.2 mg PO Q6H PRN PRN Reason: HYPERTENSION Last Admin: 10/13/17 18:42 Dose: 0.2 mg Cyclobenzaprine HCl (Flexeril) 10 mg PO Q12H PRN PRN Reason: MUSCLE SPASM Last Admin: 10/14/17 00:08 Dose: 10 mg Diltiazem HCl (Cardizem Cd 24hr) 180 mg PO DAILY [facility] Docusate Sodium (Colace) 100 mg PO BID [facility] Last Admin: 10/14/17 00:07 Dose: 100 mg Duloxetine HCl (Cymbalta) 60 mg PO DAILY [facility] Fluticasone Propionate (Flonase Nasal [place]) 1 spray EACH NARE DAILY [facility] Furosemide (Lasix) 20 mg PO DAILY [facility] Hydromorphone HCl (Dilaudid Pf Inj) 1 mg IV.PUSH Q3H PRN PRN Reason: BREAKTHROUGH PAIN Last Admin: 10/14/17 04:41 Dose: 1 mg Hydroxychloroquine Sulfate (Plaquenil) 200 mg PO BID [facility] Last Admin: 10/14/17 00:07 Dose: 200 mg Potassium Chloride/Dextrose/Sod Cl (D5w/1/2ns + Kcl 20 Meq Inj) 1,000 mls @ 85 mls/hr IV.CONT .[id number] [facility] Last Admin: 10/14/17 06:23 Dose: 85 mls/hr Lactulose (Lactulose Liq) 30 ml PO DAILY PRN PRN Reason: SEVERE CONSITIPATION Leflunomide (Arava) 20 mg PO DAILY [facility] Levothyroxine Sodium (Synthroid) 100 mcg PO DAILY@0600 [facility] Last Admin: 10/14/17 05:42 Dose: 100 mcg Levothyroxine Sodium (Synthroid) 75 mcg PO DAILY@0600 [facility] Last Admin: 10/14/17 05:42 Dose: 75 mcg Lisinopril (Prinivil) 40 mg PO DAILY [facility] Methadone HCl (Dolophine) 10 mg PO Q4H PRN PRN Reason: PAIN SCALE 1 TO 10 Last Admin: 10/14/17 06:23 Dose: 10 mg Ondansetron HCl (Zofran Inj) 4 mg IV.PUSH Q6H PRN PRN Reason: NAUSEA OR VOMITING Pat Own Med: Azelastine Nasal [place] 0 each NASAL Q12HR [facility] Pravastatin Sodium (Pravachol) 40 mg PO QPM [facility] Pregabalin (Lyrica) 25 mg PO BID [facility] Last Admin: 10/14/17 00:07 Dose: 25 mg Sennosides (Senokot) 17.2 mg PO Q12H PRN PRN Reason: Moderate Constipation Vitamin D (Vitamin D3) 5,000 unit PO DAILY [facility] Exam Vital signs: Vital Signs 10/13/17 12:12 10/13/17 15:23 10/13/17 16:36 Temperature 97.7 F Pulse Rate 91 H Respiratory Rate 18 16 16 Blood Pressure 174/103 H Pulse Oximetry 98 10/13/17 17:15 10/13/17 18:39 10/13/17 19:40 Temperature Pulse Rate 87 87 88 Respiratory Rate 16 16 18 Blood Pressure 191/99 H 170/94 H 167/80 H Pulse Oximetry 97 94 L 96 10/13/17 21:50 10/14/17 04:00 Temperature 98.0 F 98.6 F Pulse Rate 79 93 H Respiratory Rate 20 20 Blood Pressure 152/72 H 152/79 H Pulse Oximetry 97 98 Intake & Output 10/13/17 10/14/17 10/14/17 18:59 06:59 18:59 Intake Total 1000 / 1000 Balance 1000 / 1000 Weight 85 kg 83.915 kg Intake: IV 1000 / 1000 D5W/1/2NS + KCL 20 mEq Inj 1, 1000 / 1000 000 ML @ 85 mls/hr IV.CONT . [id number] [facility] Rx#:[id number] Other: # Voids 2 Weight On Admission 83.915 kg Narrative: GENERAL: This is a well-nourished, well-developed patient, drowsy post pain medication SKIN: healing ecchymosis bilateral upper and lower extremities CARDIOVASCULAR: Regular rate and rhythm RESPIRATORY: Clear to auscultation. Breath sounds equal bilaterally. GASTROINTESTINAL: Abdomen soft, non-tender, nondistended. Normal active bowel sounds MUSCULOSKELETAL: Extremities without clubbing, cyanosis, or edema. NEURO: able to awaken o voice then drifts off to sleep during interview. Moves all ext x4. Left foot drop noted Results - Labs CBC & Chem 7: 10/13/17 17:15 10/13/17 17:15 Labs: Laboratory Results - last 24 hr 10/13/17 10/13/17 10/13/17 17:15 17:15 17:15 CBC w Diff Auto diff final WBC 11.3 H RBC 4.61 Hgb 14.0 Hct 41.9 MCV 90.8 MCH 30.4 MCHC 33.4 RDW 16.0 Plt Count 276 MPV 10.1 Neut % (Auto) 61.9 Lymph % (Auto) 27.4 [place] % (Auto) 8.0 Eos % (Auto) 2.3 Baso % (Auto) 0.4 Neut # (Auto) 7.0 Lymph # (Auto) 3.1 [place] # (Auto) 0.9 Eos # (Auto) 0.3 Baso # (Auto) 0.0 WBC Differential . Differential Comment . PT 9.8 INR 1.0 APTT 30.4 H Sodium 139 Potassium 3.5 Chloride 103 Carbon Dioxide 30.6 Anion Gap 5 BUN 11 Creatinine 0.73 Estimated GFR 82 L Random Glucose 84 Calcium 8.8 Total Bilirubin 0.3 AST 25 ALT 35 Alkaline Phosphatase 134 H Total Protein 7.7 Albumin 4.1 - Imaging Impressions Hand X-Ray 10/13/17 13:47 CONCLUSION: Unremarkable study. Knee X-Ray 10/13/17 13:47 CONCLUSION: No evidence of recent bony injury. Lumbar Spine CT 10/13/17 13:47 CONCLUSION: 1. There is a fracture of superior endplate of L4 not present on the prior MRI as the appearance of a limbus vertebrae and postsurgical changes as above. 2. Neural foraminal compromise bilateral L3-4, bilateral L4-5, bilateral L5-S1. 3. 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 4. Lateral recess stenosis left L4-5 and left L5-S1. Chest X-Ray 10/14/17 00:00 CONCLUSION: Negative examination. Caprini VTE Risk Assessment Caprini VTE Risk Assessment: No/Low Risk (score <= 1) Caprini Risk Assessment Model: Point Value = 1 Point Value = 2 Point Value = 3 Point Value = 5 Age 41-60 Minor surgery BMI > 25 kg/m2 Swollen legs Varicose veins or History of unexplained or recurrent spontaneous Oral contraceptives or hormone replacement Sepsis (< 1 month) Serious lung disease, including pneumonia (< 1 month) Abnormal pulmonary function Acute myocardial infarction Congestive heart failure (< 1 month) History of inflammatory bowel disease Medical patient at bed rest Age 61-74 Arthroscopic surgery Major open surgery (> 45 min) Laparoscopic surgery (> 45 min) Malignancy Confined to bed (> 72 hours) Immobilizing plaster cast Central venous access Age >= 75 History of VTE Family history of VTE Factor V Leiden Prothrombin [id number] Lupus anticoagulant Anticardiolipin antibodies Elevated serum homocysteine Heparin-induced thrombocytopenia Other congenital or acquired thrombophilia Stroke (< 1 month) Elective arthroplasty Hip, pelvis, or leg fracture Acute spinal cord injury (< 1 month) Prophylaxis Regimen: Total Risk Factor Score Risk Level Prophylaxis Regimen 0-1 Low Early ambulation 2 Moderate Order ONE of the following: *Sequential Compression Device (SCD) *Heparin 5000 units SQ BID 3-4 Higher Order ONE of the following medications: *Heparin 5000 units SQ TID *Enoxaparin/Lovenox 40 mg SQ daily (WT < 150 kg, CrCl > 30 mL/min) *Enoxaparin/Lovenox 30 mg SQ daily (WT < 150 kg, CrCl > 10-29 mL/min) *Enoxaparin/Lovenox 30 mg SQ BID (WT < 150 kg, CrCl > 30 mL/min) AND/OR *Sequential Compression Device (SCD) 5 or more Highest Order ONE of the following medications: *Heparin 5000 units SQ TID (Preferred with Epidurals) *Enoxaparin/Lovenox 40 mg SQ daily (WT < 150 kg, CrCl > 30 mL/min) *Enoxaparin/Lovenox 30 mg SQ daily (WT < 150 kg, CrCl > 10-29 mL/min) *Enoxaparin/Lovenox 30 mg SQ BID (WT < 150 kg, CrCl > 30 mL/min) AND *Sequential Compression Device (SCD) Assessment and Plan - Assessment (1) Lumbar foraminal stenosis Code(s): M99.83 - Other biomechanical lesions of lumbar region Status: Acute Plan: This is a 57-year-old female with a history of hypertension, hyperlipidemia, chronic low back pain, RA, [place] esophagus, Right breast cancer, Chronic Kidney disease, Colon polyps, Degenerative cervical disc, Diverticulosis, GERD, Hypertension, Hypothyroidism s/p thyroidectomy who presents to the emergency department for evaluation of left knee pain. The patient underwent an L5-S1 lumbar fusion in July [address] Servin. States that since then she has had dropfoot of the left leg. States that over the past 2 weeks her left leg has given out on her several times and caused her to fall. States that she ambulates with a walker however she still falls and fall onto her left side. States that she was seen by sports medicine last week and had an x-ray of her left knee and hip it was told that it was unremarkable. States that she has fallen twice since then and the left knee is painful and swollen. Pain is aggravated with movement and weightbearing. She is also having increased pain in her back near her surgical site since the falls. Denies any fever, chills, nausea, vomiting, numbness or tingling. She does have weakness in the left leg , reports this is worse over the last week since her falls. She takes methadone for pain and follows up with pain management. No other complaints. Lumbar stenosis Fracture of superior endplate of L4 s/p L5-S1 lumbar fusion in July [address] Servin Hand X-Ray 10/13/17 Unremarkable study. Lumbar Spine CT 10/13/17 1. There is a fracture of superior endplate of L4 not present on the prior MRI as the appearance of a limbus vertebrae and postsurgical changes as above. 2. Neural foraminal compromise bilateral L3-4, bilateral L4-5, bilateral L5- S1. 3. 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 4. Lateral recess stenosis left L4-5 and left L5-S1. Chest X-Ray 10/14/17 Negative examination. ER provider spoke with the neurosurgeon on-call Dr. Johnson regarding the patient' s presentation. He reviewed the patient's images and requests her to be transferred to the main for further evaluation. Recommends patient NPO at midnight until otherwise specified. - acute or subacute L4 fracture, evaluated by neurosurgery feel that fracture occurred sometime in the past 3 mouths would recommend that she wear an TLSO brace, which can be obtained from and fitted by [employer] - Dilaudid as needed for pain - methadone 10 mg PO TID was started by outpatient pain management 10/08 Post-op left lower extremity weakness and left foot drop s/p L5-S1 lumbar fusion in July [address] Servin Lum[address] Spine CT 10/13/17 1. There is a fracture of superior endplate of L4 not present on the prior MRI as the appearance of a limbus vertebrae and postsurgical changes as above. 2. Neural foraminal compromise bilateral L3-4, bilateral L4-5, bilateral L5- S1. 3. 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 4. Lateral recess stenosis left L4-5 and left L5-S1. ER provider spoke with the neurosurgeon on-call Dr. Johnson regarding the patient' s presentation. He reviewed the patient's images and requests her to be transferred to the main for further evaluation. Recommends patient NPO at midnight until otherwise specified. - Neurosurgery recommending noncontrast MRI of the lumbar spine to get a better look at her nerve roots, and assess whether there is any ongoing nerve root compromise, or any significant cauda equina compression from the bone graft material in the lateral recess, for the postsurgical leg weakness, would recommend. follow with Dr. Servin will be back this week, and would be able to assess these images and visit the patient. Left knee pain - Left Knee X-Ray 10/13/17 No evidence of recent bony injury. - MRI of her left knee ordered per neurosurgery, consider consultation to orthopedic surgery consultation if the MRI reveals any injury. Frequent falls Narcotic dependency Patient follows with outpatient pain management, Dr. Katt Schulte recently stopped Duragesic patch and was started on methadone 10 mg PO TID 10/08 Patient also takes Flexeril 20 mg PO QHS Patient states last BM 10/12 will obtain KUB It is highly concerning that patient's medication regiment in addition to her left foot drop could be contributing to her frequent falls Even in the hospital patient currently appears drowsy and continues to ask for more pain medication -> in fact will decrease Dilaudid and decrease methadone to Q8H concerned that patient is at increased risk of falling due to sedation will request 1 to 1 sitter for safety Discussed with RN and charge nurse consult PT Polypharmacy It would be best for this patient's medication to be decreased/consolidated as much as possible, will continue to try to decrease/consolidated while in the hospital. this will likely best be done/continues in the outpatient setting Depression/anxiety continue home Cymbalta add Ativan 1 mg Q6H as needed for anxiety depression/anxiety likely contributing to pain perception Right breast cancer patient follows with Dr. Joyce outpatient invasive moderately differentiated carcinoma s/p lumpectomy with sentinel lymph node biopsy and intraoperative radiation 05/24/2017, with Dr. Chavez Continue anastrozole Hypertension Continue home Lisinopril 40 mg daily and diltiazem 180 mg daily Hypothyroidism s/p thyroidectomy Patient follows outpatient with Dr. Mcduffie continue home levothyroxine 175 mcg daily GERD [place] Esophagitis patient follows outpatient with Dr. Rodrigez Continue patient's home Prilosec 20 mg BID Rheumatoid arthritis Continue home Leflunomide 20 mg daily, hydroxychloroquine DVT prophylaxis with SCDs (2) L4 vertebral fracture Code(s): S32.049A - Unspecified fracture of fourth lumbar vertebra, initial encounter for closed fracture Status: Acute <Ceferino Diaz - Last Filed: 10/14/17 16:25> History of Present Illness Primary Care Physician: Juhi Cooper - Diagnosis (1) Lumbar foraminal stenosis (2) L4 vertebral fracture Inpatient Certification: I certify that the inpatient services were ordered in accordance with Medicare regulations governing the order. This includes certification that hospital inpatient services are reasonable and necessary and in the case of services not specified as inpatient-only under 42 CFR 419.22(n), that they are appropriately provided as inpatient services in accordance to with the 2-midnight benchmark under 43 CFR 412.3(e) [facility] - Medical History Medical History: Medical History (Last Reviewed 10/14/17 @ 07:37 by Luiz Edwards) FH: mastectomy Foot drop, left Left knee pain Back pain Breast cancer Chest pain Depression Hypertension - Surgical History Surgical History: Surgical History (Last Reviewed 10/14/17 @ 10:04 by Raymond Johnson MD) H/O section H/O shoulder surgery History of back surgery Medications and Allergies Active Medications: Active Medications Acetaminophen (Tylenol) 650 mg PO Q4H PRN PRN Reason: pain 1-3, fever > 100.4 Al Hydroxide/Mg Hydroxide (Milk Of Magnesia Liq) 30 ml PO Q12H PRN PRN Reason: Mild Constipation Albuterol (Ventolin Hfa Inh) 2 puff INH Q4H PRN PRN Reason: SHORTNESS OF BREATH/WHEEZING Anastrozole (Arimidex) 1 mg PO DAILY [facility] Last Admin: 10/14/17 12:42 Dose: Not Given Bisacodyl (Dulcolax Supp) 10 mg RECTAL DAILY PRN PRN Reason: SEVERE CONSITIPATION Bupropion HCl (Wellbutrin Xl) 300 mg PO DAILY@0600 [facility] Last Admin: 10/14/17 05:42 Dose: 300 mg Clonidine HCl (Catapres) 0.2 mg PO Q6H PRN PRN Reason: HYPERTENSION Last Admin: 10/13/17 18:42 Dose: 0.2 mg Cyclobenzaprine HCl (Flexeril) 20 mg PO HS PRN PRN Reason: MUSCLE SPASM Diltiazem HCl (Cardizem Cd 24hr) 180 mg PO DAILY [facility] Last Admin: 10/14/17 09:33 Dose: 180 mg Docusate Sodium (Colace) 100 mg PO BID [facility] Last Admin: 10/14/17 12:42 Dose: Not Given Duloxetine HCl (Cymbalta) 60 mg PO HS [facility] Fluticasone Propionate (Flonase Nasal [place]) 1 spray EACH NARE DAILY [facility] Last Admin: 10/14/17 12:42 Dose: Not Given Furosemide (Lasix) 20 mg PO DAILY [facility] Last Admin: 10/14/17 12:42 Dose: Not Given Hydromorphone HCl (Dilaudid Pf Inj) 1 mg IV.PUSH Q4H PRN PRN Reason: BREAKTHROUGH PAIN Last Admin: 10/14/17 14:15 Dose: 1 mg Hydroxychloroquine Sulfate (Plaquenil) 200 mg PO BID [facility] Last Admin: 10/14/17 12:42 Dose: Not Given Lactulose (Lactulose Liq) 30 ml PO DAILY PRN PRN Reason: SEVERE CONSITIPATION Leflunomide (Arava) 20 mg PO DAILY [facility] Last Admin: 10/14/17 12:42 Dose: Not Given Levothyroxine Sodium (Synthroid) 100 mcg PO DAILY@0600 [facility] Last Admin: 10/14/17 05:42 Dose: 100 mcg Levothyroxine Sodium (Synthroid) 75 mcg PO DAILY@0600 [facility] Last Admin: 10/14/17 05:42 Dose: 75 mcg Lisinopril (Prinivil) 40 mg PO DAILY [facility] Last Admin: 10/14/17 09:33 Dose: 40 mg Lorazepam (Ativan Inj) 1 mg IV.PUSH Q6H PRN PRN Reason: ANXIETY AND/OR AGITATION Last Admin: 10/14/17 13:37 Dose: 1 mg Methadone HCl (Dolophine) 10 mg PO Q8H PRN PRN Reason: PAIN SCALE 1 TO 10 Last Admin: 10/14/17 12:33 Dose: 10 mg Ondansetron HCl (Zofran Inj) 4 mg IV.PUSH Q6H PRN PRN Reason: NAUSEA OR VOMITING Pantoprazole Sodium (Protonix) 20 mg PO BID [facility] Pat Own Med: Azelastine Nasal [place] 0 each NASAL Q12HR [facility] Pravastatin Sodium (Pravachol) 40 mg PO QPM [facility] Pregabalin (Lyrica) 25 mg PO BID [facility] Last Admin: 10/14/17 12:42 Dose: Not Given Sennosides (Senokot) 17.2 mg PO Q12H PRN PRN Reason: Moderate Constipation Vitamin D (Vitamin D3) 5,000 unit PO DAILY [facility] Last Admin: 10/14/17 12:42 Dose: Not Given Exam Vital signs: Vital Signs 10/13/17 16:36 10/13/17 17:15 10/13/17 18:39 Temperature Pulse Rate 87 87 Respiratory Rate 16 16 16 Blood Pressure 191/99 H 170/94 H Pulse Oximetry 97 94 L 10/13/17 19:40 10/13/17 21:50 10/14/17 04:00 Temperature 98.0 F 98.6 F Pulse Rate 88 79 93 H Respiratory Rate 18 20 20 Blood Pressure 167/80 H 152/72 H 152/79 H Pulse Oximetry 96 97 98 10/14/17 09:25 10/14/17 12:00 Temperature 98.4 F 98.6 F Pulse Rate 94 H 92 H Respiratory Rate 18 16 Blood Pressure 147/67 H 144/73 H Pulse Oximetry 95 94 L Intake & Output 10/13/17 10/14/17 10/14/17 18:59 06:59 18:59 Intake Total 1000 / 1000 Balance 1000 / 1000 Weight 85 kg 83.915 kg Intake: IV 1000 / 1000 D5W/1/2NS + KCL 20 mEq Inj 1, 1000 / 1000 000 ML @ 85 mls/hr IV.CONT . [id number] [facility] Rx#:[id number] Other: # Voids 2 Date of Last Bowel Movement 10/12/17 Weight On Admission 83.915 kg Results - Labs CBC & Chem 7: 10/13/17 17:15 10/13/17 17:15 Labs: Laboratory Results - last 24 hr 0910/13/17 10/13/17 17:15 17:15 17:15 CBC w Diff Auto diff final WBC 11.3 H RBC 4.61 Hgb 14.0 Hct 41.9 MCV 90.8 MCH 30.4 MCHC 33.4 RDW 16.0 Plt Count 276 MPV 10.1 Neut % (Auto) 61.9 Lymph % (Auto) 27.4 [place] % (Auto) 8.0 Eos % (Auto) 2.3 Baso % (Auto) 0.4 Neut # (Auto) 7.0 Lymph # (Auto) 3.1 [place] # (Auto) 0.9 Eos # (Auto) 0.3 Baso # (Auto) 0.0 WBC Differential . Differential Comment . PT 9.8 INR 1.0 APTT 30.4 H Sodium 139 Potassium 3.5 Chloride 103 Carbon Dioxide 30.6 Anion Gap 5 BUN 11 Creatinine 0.73 Estimated GFR 82 L Random Glucose 84 Calcium 8.8 Total Bilirubin 0.3 AST 25 ALT 35 Alkaline Phosphatase 134 H Total Protein 7.7 Albumin 4.1 - Imaging Impressions Chest X-Ray 10/14/17 00:00 CONCLUSION: Negative examination. Caprini VTE Risk Assessment Caprini Risk Assessment Model: Point Value = 1 Point Value = 2 Point Value = 3 Point Value = 5 Age 41-60 Minor surgery BMI > 25 kg/m2 Swollen legs Varicose veins or History of unexplained or recurrent spontaneous Oral contraceptives or hormone replacement Sepsis (< 1 month) Serious lung disease, including pneumonia (< 1 month) Abnormal pulmonary function Acute myocardial infarction Congestive heart failure (< 1 month) History of inflammatory bowel disease Medical patient at bed rest Age 61-74 Arthroscopic surgery Major open surgery (> 45 min) Laparoscopic surgery (> 45 min) Malignancy Confined to bed (> 72 hours) Immobilizing plaster cast Central venous access Age >= 75 History of VTE Family history of VTE Factor V Leiden Prothrombin [id number] Lupus anticoagulant Anticardiolipin antibodies Elevated serum homocysteine Heparin-induced thrombocytopenia Other congenital or acquired thrombophilia Stroke (< 1 month) Elective arthroplasty Hip, pelvis, or leg fracture Acute spinal cord injury (< 1 month) Prophylaxis Regimen: Total Risk Factor Score Risk Level Prophylaxis Regimen 0-1 Low Early ambulation 2 Moderate Order ONE of the following: *Sequential Compression Device (SCD) *Heparin 5000 units SQ BID 3-4 Higher Order ONE of the following medications: *Heparin 5000 units SQ TID *Enoxaparin/Lovenox 40 mg SQ daily (WT < 150 kg, CrCl > 30 mL/min) *Enoxaparin/Lovenox 30 mg SQ daily (WT < 150 kg, CrCl > 10-29 mL/min) *Enoxaparin/Lovenox 30 mg SQ BID (WT < 150 kg, CrCl > 30 mL/min) AND/OR *Sequential Compression Device (SCD) 5 or more Highest Order ONE of the following medications: *Heparin 5000 units SQ TID (Preferred with Epidurals) *Enoxaparin/Lovenox 40 mg SQ daily (WT < 150 kg, CrCl > 30 mL/min) *Enoxaparin/Lovenox 30 mg SQ daily (WT < 150 kg, CrCl > 10-29 mL/min) *Enoxaparin/Lovenox 30 mg SQ BID (WT < 150 kg, CrCl > 30 mL/min) AND *Sequential Compression Device (SCD) Assessment and Plan - Assessment (1) Lumbar foraminal stenosis Code(s): M99.83 - Other biomechanical lesions of lumbar region Status: Acute (2) L4 vertebral fracture Code(s): S32.049A - Unspecified fracture of fourth lumbar vertebra, initial encounter for closed fracture Status: Acute - Attending Attestation Patient examined. Assessment and plan formulated with Tiffany Cano PA-C. I agree with the above. Pt c/o ongoing LBP and b/l knee pain. Obtain MRI Lumbar spine. Obtain MRI both knees <Tiffany Cano W - Last Filed: 10/14/17 11:53> (2) L4 vertebral fracture Qualifiers: Encounter type: initial encounter Fracture type: closed Fracture morphology : unspecified fracture morphology Qualified Code(s): S32.049A - Unspecified fracture of fourth lumbar vertebra, initial encounter for closed fracture <Ceferino Diaz - Last Filed: 10/14/17 16:25> (2) L4 vertebral fracture Qualifiers: Encounter type: initial encounter Fracture type: closed Fracture morphology : unspecified fracture morphology Qualified Code(s): S32.049A - Unspecified fracture of fourth lumbar vertebra, initial encounter for closed fracture
--- NOTE | 2017-10-14 09:54 | P.CONNS ---
History of Present Illness Service: Neurosurgery Consult date: 10/14/17 Requesting Physician: Мария Leija Reason for Consult: Leg weakness and pain Primary Care Provider: Juhi Cooper Chief Complaint: Fall Lt Knee Pain History of Present Illness: Juhi Dobbs is a 57-year-old female with a history of two-level lumbar fusion surgery in July [address] Servin. She originally presented for outpatient evaluation of low back pain that was progressive over time, as well as some bilateral lower extremity weakness and pain. She had a number of epidural steroid injections that provided only short-term benefit. MRI of the lumbar spine revealed degenerative disease at L4/5 and L5/S1 with spinal stenosis and foraminal stenosis. Dr. Servin took her to surgery for L5-S1 decompressive laminectomy and L4-S1 transforaminal interbody fusion with unilateral left- sided pedicle screw fixation. She has had a number of issues since that time. She tells me that she awoke from surgery with a foot drop and left leg weakness. This was evaluated by Dr. Servin's team and felt to be related to nerve root stretch from placement of her interbody cages. She underwent outpatient therapy and was making some degree of progress, but her left leg remained weak and she has suffered quite a few falls over the last 3 months. She has repeatedly fallen onto her left knee, and is now experiencing a great deal of pain in her left knee. She has seen doctors for this a number of times , including ER providers, and outpatient sports medicine physician, and her regular doctor. Some x-rays have been done, which did not show any acute fracture, but she has had no other imaging. She came to the ER in [place] yesterday really because of the left knee pain, which she feels is really unbearable. However, she also related right knee pain, some right-sided sciatica, and some back pain after 1 of her recent falls, so the ER obtained a CT scan of her lumbar spine as well, which was felt to demonstrate a new fracture of the superior L4 endplate. They called me and I requested her to be transferred to the [facility] for neurosurgical evaluation. Interviewing her was difficult, as she has to frequently switch positions due to her discomfort. A good deal of her history was provided by her , with her listening and correcting/interjecting as necessary. She says that approximately 60-70% of her current pain is in the left knee. I asked her to show me precisely where the pain is, and she mela a roughly 10 cm salt river around her left patella. She does not have pain that shoots down the left leg, though she does have persistent left leg weakness since the time of her surgery. The remaining ~30% of her pain is spread out evenly between her low back, her hips bilaterally, and her right knee, which has numerous bruises from falling. She denies bowel or bladder incontinence. She does have some mild paresthesias/numbness in a small distribution on the right lateral aspect of her right knee, and a small area on the top of her left foot. Review of Systems Comments: A 10 system review was conducted. It was also positive for cracking of her neck. PMFSH - History History Provided By: Patient, Family Member - Medical History Medical History: Medical History (Last Reviewed 10/14/17 @ 07:37 by Luiz Edwards) FH: mastectomy Foot drop, left Left knee pain Back pain Breast cancer Chest pain Depression Hypertension - Surgical History Surgical History: Surgical History (Last Reviewed 10/14/17 @ 10:04 by Raymond Johnson MD) H/O section H/O shoulder surgery History of back surgery - Tobacco History Second Hand Smoke Exposure: No Tobacco Use In Past 30 Days: No Smoking Status: Former smoker Tobacco Type: Cigarettes - Alcohol History How Often Do You Have a Drink Containing Alcohol: Never - Substance Use History Substance History: No History of Abuse - Travel History Recent Travel in the [place] Within the Last 8 Weeks: No Recent Travel Out of the Country Within the Last 8 Weeks: No - Immunization History Tetanus Immunization: <5 Years Hx Influenza Vaccine This Season: Yes Medications and Allergies Active Medications: Active Medications Acetaminophen (Tylenol) 650 mg PO Q4H PRN PRN Reason: Temp > 100.4 Al Hydroxide/Mg Hydroxide (Milk Of Domitila Liq) 30 ml PO Q12H PRN PRN Reason: Mild Constipation Anastrozole (Arimidex) 1 mg PO DAILY SHERIE Bisacodyl (Dulcolax Supp) 10 mg RECTAL DAILY PRN PRN Reason: SEVERE CONSITIPATION Bupropion HCl (Wellbutrin Xl) 300 mg PO DAILY@0600 [facility] Last Admin: 10/14/17 05:42 Dose: 300 mg Clonidine HCl (Catapres) 0.2 mg PO Q6H PRN PRN Reason: HYPERTENSION Last Admin: 10/13/17 18:42 Dose: 0.2 mg Cyclobenzaprine HCl (Flexeril) 10 mg PO Q12H PRN PRN Reason: MUSCLE SPASM Last Admin: 10/14/17 00:08 Dose: 10 mg Diltiazem HCl (Cardizem Cd 24hr) 180 mg PO DAILY [facility] Last Admin: 10/14/17 09:33 Dose: 180 mg Docusate Sodium (Colace) 100 mg PO BID [facility] Last Admin: 10/14/17 00:07 Dose: 100 mg Duloxetine HCl (Cymbalta) 60 mg PO DAILY [facility] Fluticasone Propionate (Flonase Nasal [place]) 1 spray EACH NARE DAILY [facility] Furosemide (Lasix) 20 mg PO DAILY [facility] Hydromorphone HCl (Dilaudid Pf Inj) 1 mg IV.PUSH Q3H PRN PRN Reason: BREAKTHROUGH PAIN Last Admin: 10/14/17 09:31 Dose: 1 mg Hydroxychloroquine Sulfate (Plaquenil) 200 mg PO BID [facility] Last Admin: 10/14/17 00:07 Dose: 200 mg Potassium Chloride/Dextrose/Sod Cl (D5w/1/2ns + Kcl 20 Meq Inj) 1,000 mls @ 85 mls/hr IV.CONT .[id number] [facility] Last Admin: 10/14/17 06:23 Dose: 85 mls/hr Lactulose (Lactulose Liq) 30 ml PO DAILY PRN PRN Reason: SEVERE CONSITIPATION Leflunomide (Arava) 20 mg PO DAILY [facility] Levothyroxine Sodium (Synthroid) 100 mcg PO DAILY@0600 [facility] Last Admin: 10/14/17 05:42 Dose: 100 mcg Levothyroxine Sodium (Synthroid) 75 mcg PO DAILY@0600 [facility] Last Admin: 10/14/17 05:42 Dose: 75 mcg Lisinopril (Prinivil) 40 mg PO DAILY [facility] Last Admin: 10/14/17 09:33 Dose: 40 mg Methadone HCl (Dolophine) 10 mg PO Q4H PRN PRN Reason: PAIN SCALE 1 TO 10 Last Admin: 10/14/17 06:23 Dose: 10 mg Ondansetron HCl (Zofran Inj) 4 mg IV.PUSH Q6H PRN PRN Reason: NAUSEA OR VOMITING Pat Own Med: Azelastine Nasal [place] 0 each NASAL Q12HR [facility] Pravastatin Sodium (Pravachol) 40 mg PO QPM SHERIE Pregabalin (Lyrica) 25 mg PO BID [facility] Last Admin: 10/14/17 00:07 Dose: 25 mg Sennosides (Senokot) 17.2 mg PO Q12H PRN PRN Reason: Moderate Constipation Vitamin D (Vitamin D3) 5,000 unit PO DAILY [facility] Allergies Allergy/AdvReac Type Severity Reaction Status Date / Time clarithromycin Allergy Severe Rash Verified 10/13/17 12:14 codeine Allergy Severe ITCHING Verified 10/13/17 12:14 morphine Allergy Severe SOB, RASH Verified 10/13/17 12:14 SWELLING methotrexate Allergy Intermediate ELEVATED Verified 10/13/17 12:14 LIVER ENZYMES. adhesive Allergy Unknown Generalized Verified 10/13/17 12:14 Rash latex Allergy Unknown RASH Verified 10/13/17 12:14 Home Medications Medication Instructions Recorded Confirmed Type acidophilus-pectin, citrus 1 tab PO DIRECTED 10/13/17 10/13/17 History [Acidophilus Probiotic] anastrozole 1 mg PO DAILY 10/13/17 10/13/17 History azelastine 2 spray INTRANASAL Q12H 10/13/17 10/13/17 History biotin 2,500 mcg PO DAILY 10/13/17 10/13/17 History bupropion HCl 300 mg PO QAM 10/13/17 10/13/17 History cholecalciferol (vitamin D3) 5,000 unit PO DAILY 10/13/17 10/13/17 History clonidine HCl 0.1 mg PO PRN 10/13/17 10/13/17 History diltiazem HCl [DILT-XR] 180 mg PO DAILY 10/13/17 10/13/17 History duloxetine 60 mg PO DAILY 10/13/17 10/13/17 History fluticasone 1 spray INTRANASAL DAILY 10/13/17 10/13/17 History furosemide 20 mg PO DAILY 10/13/17 10/13/17 History hydroxychloroquine 200 mg PO BID 10/13/17 10/13/17 History leflunomide 20 mg PO DAILY 10/13/17 10/13/17 History levothyroxine 175 mcg PO DAILY 10/13/17 10/13/17 History lisinopril 40 mg PO DAILY 10/13/17 10/13/17 History methadone 10 mg PO Q4-6H PRN 10/13/17 10/13/17 History methylprednisolone 4 mg PO DAILY 10/13/17 10/13/17 History naproxen sodium [Aleve] 220 mg PO BID 10/13/17 10/13/17 History pregabalin [Lyrica] 25 mg PO BID 10/13/17 10/13/17 History simvastatin 20 mg PO QPM 10/13/17 10/13/17 History Exam Vital signs: Vital Signs 10/13/17 12:12 10/13/17 15:23 10/13/17 16:36 Temperature 97.7 F Pulse Rate 91 H Respiratory Rate 18 16 16 Blood Pressure 174/103 H Pulse Oximetry 98 10/13/17 17:15 10/13/17 18:39 10/13/17 19:40 Temperature Pulse Rate 87 87 88 Respiratory Rate 16 16 18 Blood Pressure 191/99 H 170/94 H 167/80 H Pulse Oximetry 97 94 L 96 10/13/17 21:50 10/14/17 04:00 10/14/17 09:25 Temperature 98.0 F 98.6 F 98.4 F Pulse Rate 79 93 H 94 H Respiratory Rate 20 20 18 Blood Pressure 152/72 H 152/79 H 147/67 H Pulse Oximetry 97 98 95 Intake & Output 10/13/17 10/14/17 10/14/17 18:59 06:59 18:59 Intake Total 1000 / 1000 Balance 1000 / 1000 Weight 85 kg 83.915 kg Intake: IV 1000 / 1000 D5W/1/2NS + KCL 20 mEq Inj 1, 1000 / 1000 000 ML @ 85 mls/hr IV.CONT . [id number] [facility] Rx#:[id number] Other: # Voids 2 Weight On Admission 83.915 kg - Routine Skin Exam Comments: She has extensive bruising around the right knee and the left knee appears somewhat discolored/dark - Routine Neurological Exam Alert and conversant. Fully oriented. Speech is fluent, speech is intelligible. Her motor strength is 5/5 in all muscle groups of the upper extremities bilaterally. Her motor strength is 5/5 in all muscle groups of the right lower extremity. The left lower extremity is 5/5 throughout, with the notable exception of 3/5 strength in the left quadriceps and 2/5 strength in the left tibialis anterior. Her sensation to light touch is subjectively intact throughout both lower extremities. She has no clonus or Babinski on either leg. Results - Laboratory Findings CBC and BMP: 10/13/17 17:15 10/13/17 17:15 Abnormal lab findings: Abnormal Labs 10/13/1718 10/13/17 17:15 17:15 17:15 WBC 11.3 H APTT 30.4 H Estimated GFR 82 L Alkaline Phosphatase 134 H - Diagnostic Findings Additional findings: Her lumbar CT demonstrates evidence of prior left hemilaminectomy of L4-S1 with L4/5 and L5/S1 transforaminal interbody cage placement and left-sided pedicle screw instrumentation. The pedicle screws appear to be well positioned and do not have evidence of pullout or hardware fracture. I do not see a great deal of evidence of bony fusion between the vertebral bodies, and the L4/5 cage appears to have some subsidence/haloing at the endplates on either side. There is also some of what appears to be bone graft material in the lateral recess at that level, though it does not enter the neural foramen. This does appear to cause some degree of central canal stenosis, but CT alone cannot really identify any nerve root compression from this. Additionally, there appears to be an oblique fracture of the superior/lateral edge of the L4 vertebral body, which was not present on her presurgical MRI, but is of uncertain chronicity. Assessment and Plan - Plan Ms. Dobbs has multiple issues going on. Her largest complaint at this time is left knee pain from multiple mechanical falls and blows to that knee. The source of her falls appears to be postsurgical left leg weakness, which could be from nerve root stretch or could be from canal compromise. She also appears to have a superior oblique fracture of L4 which has occurred sometime in the last few months. I think additional workup and treatment of these problems would be appropriate. 1. For the acute or subacute L4 fracture, would recommend that she wear an LSO brace, which can be obtained from and fitted by [employer]. 2. For the postsurgical leg weakness, would recommend noncontrast MRI of the lumbar spine to get a better look at her nerve roots, and assess whether there is any ongoing nerve root compromise, or any significant cauda equina compression from the bone graft material in the lateral recess. I believe Dr. Servin will be back this week, and would be able to assess these images and visit the patient. 3. For the left knee pain, which is really her chief complaint, would also recommend MRI of her left knee and consideration of orthopedic surgery consultation, especially if the MRI reveals any injury. She has had negative x- rays, so the likelihood of a fracture is low, but her pain is really impressive and localized to the knee, so I think there would be some value in investigating this with a more definitive study. We will keep her on our list and follow up the results of these studies and ensure that she is doing okay in her brace. I had a lengthy discussion about this plan with the patient and her , and they are both amenable to this workup and treatment. - Attending Attestation I personally examined the patient and formulated the care plan recommended above.
[2017-10-14] MEDS ORDERED: Methadone 10 MG Tablet PO PRN (11:11)
[2017-10-14] MEDS ORDERED: HYDROmorphone PF Inj 2 MG/ML Vial IV.PUSH PRN ×2 (11:46→11:52)
[2017-10-14 14:15] VITALS: BP 144/73; PULSE 92; RESP 16; TEMP 98.6; O2SAT 94
--- NOTE | 2017-10-14 15:12 | P.DS ---
<Tiffany Cano W - Last Filed: 10/14/17 17:12> Date of admission: 10/13/17 18:16 Primary care physician: Juhi Cooper Attending physician on discharge: Ceferino Diaz Anticipated date of discharge: 10/14/17 Brief History from admission: This is a 57-year-old female with a history of hypertension, hyperlipidemia, chronic low back pain, RA, [place] esophagus, Right breast cancer, Chronic Kidney disease, Colon polyps, Degenerative cervical disc, Diverticulosis, GERD, Hypertension, Hypothyroidism s/p thyroidectomy who presents to the emergency department for evaluation of left knee pain. The patient underwent an L5-S1 lumbar fusion in July [address] Servin. States that since then she has had dropfoot of the left leg. States that over the past 2 weeks her left leg has given out on her several times and caused her to fall. States that she ambulates with a walker however she still falls and fall onto her left side. States that she was seen by sports medicine last week and had an x-ray of her left knee and hip it was told that it was unremarkable. States that she has fallen twice since then and the left knee is causing her pain and is swollen. Pain is aggravated with movement and weightbearing. She is also having increased pain in her back near her surgical site since the falls. Denies any fever, chills, nausea, vomiting, numbness or tingling. She does have weakness in the left leg, reports this is worse over the last week since her falls. She takes methadone for pain and follows up with pain management. No other complaints. PAST MEDICAL HISTORY: [place] esophagus Right breast invasive moderately differentiated carcinoma s/p lumpectomy with sentinel lymph node biopsy and intraoperative radiation 05/24/2017 Chronic Kidney disease Colon polyps Degenerative cervical disc Diverticulosis GERD (gastroesophageal reflux disease) Hemorrhoids Hypertension Hypothyroidism s/p thyroidectomy Rheumatoid arthritis PAST SURGICAL HISTORY: 3 sections Cholecystectomy Colonoscopy - 2014 EGD with biopsy - 2014 Shoulder surgery Thyroidectomy Tonsillectomy Right breast lumpectomy with sentinel lymph node biopsy and intraoperative radiation 05/24/2017 FAMILY HISTORY: Ms. Dobbs's mother is alive. Her father is . Ms. Dobbs has 2 sons: 2 alive. She has 1 daughter who is alive. SOCIAL HISTORY: Ms. Dobbs is . Occasional ETOH use She was a daily smoker who has smoked 1.0 pack/day for 30 years reports that she has quit smoking, now using E-cigarettes DS: Diagnosis - Discharge Diagnosis (1) Lumbar foraminal stenosis Status: Acute (2) L4 vertebral fracture Status: Acute DS: Summary Hospital Course: This is a 57-year-old female with a history of hypertension, hyperlipidemia, chronic low back pain, RA, [place] esophagus, Right breast cancer, Chronic Kidney disease, Colon polyps, Degenerative cervical disc, Diverticulosis, GERD, Hypertension, Hypothyroidism s/p thyroidectomy who presents to the emergency department for evaluation of left knee pain. The patient underwent an L5-S1 lumbar fusion in July [address] Servin. States that since then she has had dropfoot of the left leg. States that over the past 2 weeks her left leg has given out on her several times and caused her to fall. States that she ambulates with a walker however she still falls and fall onto her left side. States that she was seen by sports medicine last week and had an x-ray of her left knee and hip it was told that it was unremarkable. States that she has fallen twice since then and the left knee is painful and swollen. Pain is aggravated with movement and weightbearing. She is also having increased pain in her back near her surgical site since the falls. Denies any fever, chills, nausea, vomiting, numbness or tingling. She does have weakness in the left leg , reports this is worse over the last week since her falls. She takes methadone for pain and follows up with pain management. No other complaints. Lumbar stenosis Fracture of superior endplate of L4 s/p L5-S1 lumbar fusion in July [address] Servin Hand X-Ray 10/13/17 Unremarkable study. Lumbar Spine CT 10/13/17 1. There is a fracture of superior endplate of L4 not present on the prior MRI as the appearance of a limbus vertebrae and postsurgical changes as above. 2. Neural foraminal compromise bilateral L3-4, bilateral L4-5, bilateral L5- S1. 3. 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 4. Lateral recess stenosis left L4-5 and left L5-S1. Chest X-Ray 10/14/17 Negative examination. ER provider spoke with the neurosurgeon on-call Dr. Johnson regarding the patient' s presentation. He reviewed the patient's images and requests her to be transferred to the main for further evaluation. Recommends patient NPO at midnight until otherwise specified. - acute or subacute L4 fracture, evaluated by neurosurgery feel that fracture occurred sometime in the past 3 mouths would recommend that she wear an TLSO brace, which can be obtained from and fitted by [employer] as needed for pain - methadone 10 mg PO TID was started by outpatient pain management 10/08 Post-op left lower extremity weakness and left foot drop s/p L5-S1 lumbar fusion in July [address] Servin Lum[address] Spine CT 10/13/17 1. There is a fracture of superior endplate of L4 not present on the prior MRI as the appearance of a limbus vertebrae and postsurgical changes as above. 2. Neural foraminal compromise bilateral L3-4, bilateral L4-5, bilateral L5- S1. 3. 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 4. Lateral recess stenosis left L4-5 and left L5-S1. ER provider spoke with the neurosurgeon on-call Dr. Johnson regarding the patient' s presentation. He reviewed the patient's images and requests her to be transferred to the main for further evaluation. Recommends patient NPO at midnight until otherwise specified. - Neurosurgery recommending noncontrast MRI of the lumbar spine to get a better look at her nerve roots, and assess whether there is any ongoing nerve root compromise, or any significant cauda equina compression from the bone graft material in the lateral recess, for the postsurgical leg weakness, would recommend. follow with Dr. Servin will be back this week, and would be able to assess these images and visit the patient. Left knee pain - Left Knee X-Ray 10/13/17 No evidence of recent bony injury. - MRI of her left knee ordered per neurosurgery, consider consultation to orthopedic surgery consultation if the MRI reveals any injury. Frequent falls Narcotic dependency Patient follows with outpatient pain management, Dr. Katt Schulte recently stopped Duragesic patch and was started on methadone 10 mg PO TID 10/08 Patient also takes Flexeril 20 mg PO QHS Patient states last BM 10/12 will obtain KUB It is highly concerning that patient's medication regiment in addition to her left foot drop could be contributing to her frequent falls Even in the hospital patient currently appears drowsy and continues to ask for more pain medication -> in fact will decrease Dilaudid and decrease methadone to Q8H concerned that patient is at increased risk of falling due to sedation will request 1 to 1 sitter for safety Discussed with RN and charge nurse consult PT Polypharmacy It would be best for this patient's medication to be decreased/consolidated as much as possible, will continue to try to decrease/consolidated while in the hospital. this will likely best be done/continues in the outpatient setting Depression/anxiety continue home Cymbalta add Ativan 1 mg Q6H as needed for anxiety depression/anxiety likely contributing to pain perception Right breast cancer patient follows with Dr. Joyce outpatient invasive moderately differentiated carcinoma s/p lumpectomy with sentinel lymph node biopsy and intraoperative radiation 05/24/2017, with Dr. Chavez Continue anastrozole Hypertension Continue home Lisinopril 40 mg daily and diltiazem 180 mg daily Hypothyroidism s/p thyroidectomy Patient follows outpatient with Dr. Mcduffie continue home levothyroxine 175 mcg daily GERD [place] Esophagitis patient follows outpatient with Dr. Rodrigez Continue patient's home Prilosec 20 mg BID Rheumatoid arthritis Continue home Leflunomide 20 mg daily, hydroxychloroquine DVT prophylaxis with SCDs Received call from nurse that patient is refusing MRI lumbar spine and MRI knee. Patient is refusing any further care unless she gets more pain medication Patient asking to be DC'd home and states she will follow up with Dr. Servin and orthopedic surgery as an outpatient - Time Spent with Patient Total time spent providing and/or coordinating discharge services: Greater than 30 minutes - Quality: VTE Deep Vein Thrombosis/Pulmonary Embolism Present on Admission: No Exam Vital signs: Vital Signs 10/13/17 15:23 10/13/17 16:36 10/13/17 17:15 Temperature Pulse Rate 87 Respiratory Rate 16 16 16 Blood Pressure 191/99 H Pulse Oximetry 97 10/13/17 18:39 10/13/17 19:40 10/13/17 21:50 Temperature 98.0 F Pulse Rate 87 88 79 Respiratory Rate 16 18 20 Blood Pressure 170/94 H 167/80 H 152/72 H Pulse Oximetry 94 L 96 97 10/14/17 04:00 10/14/17 09:25 10/14/17 12:00 Temperature 98.6 F 98.4 F 98.6 F Pulse Rate 93 H 94 H 92 H Respiratory Rate 20 18 16 Blood Pressure 152/79 H 147/67 H 144/73 H Pulse Oximetry 98 95 94 L Intake & Output 10/13/17 10/14/17 10/14/17 18:59 06:59 18:59 Intake Total 1000 / 1000 Balance 1000 / 1000 Weight 85 kg 83.915 kg Intake: IV 1000 / 1000 D5W/1/2NS + KCL 20 mEq Inj 1, 1000 / 1000 000 ML @ 85 mls/hr IV.CONT . [id number] [facility] Rx#:[id number] Other: # Voids 2 Date of Last Bowel Movement 10/12/17 Weight On Admission 83.915 kg Narrative: GENERAL: This is a57 year old female patient appears older than stated age SKIN: healing ecchymosis bilateral upper and lower extremities CARDIOVASCULAR: Regular rate and rhythm RESPIRATORY: Clear to auscultation. Breath sounds equal bilaterally. GASTROINTESTINAL: Abdomen soft, non-tender, nondistended. Normal active bowel sounds MUSCULOSKELETAL: Extremities without clubbing, cyanosis, or edema. NEURO: Alert and awake. Moves all ext x4. Results Procedures completed during hospitalization: None Labs on day of discharge: Labs from last 24 hours 10/13/17 10/13/17 10/13/17 17:15 17:15 17:15 CBC w Diff Auto diff final WBC 11.3 H RBC 4.61 Hgb 14.0 Hct 41.9 MCV 90.8 MCH 30.4 MCHC 33.4 RDW 16.0 Plt Count 276 MPV 10.1 Neut % (Auto) 61.9 Lymph % (Auto) 27.4 [place] % (Auto) 8.0 Eos % (Auto) 2.3 Baso % (Auto) 0.4 Neut # (Auto) 7.0 Lymph # (Auto) 3.1 [place] # (Auto) 0.9 Eos # (Auto) 0.3 Baso # (Auto) 0.0 WBC Differential . Differential Comment . PT 9.8 INR 1.0 APTT 30.4 H Sodium 139 Potassium 3.5 Chloride 103 Carbon Dioxide 30.6 Anion Gap 5 BUN 11 Creatinine 0.73 Estimated GFR 82 L Random Glucose 84 Calcium 8.8 Total Bilirubin 0.3 AST 25 ALT 35 Alkaline Phosphatase 134 H Total Protein 7.7 Albumin 4.1 - Impressions ITS Impressions Hand X-Ray 10/13/17 13:47 CONCLUSION: Unremarkable study. Knee X-Ray 10/13/17 13:47 CONCLUSION: No evidence of recent bony injury. Lumbar Spine CT 10/13/17 13:47 CONCLUSION: 1. There is a fracture of superior endplate of L4 not present on the prior MRI as the appearance of a limbus vertebrae and postsurgical changes as above. 2. Neural foraminal compromise bilateral L3-4, bilateral L4-5, bilateral L5-S1. 3. 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 4. Lateral recess stenosis left L4-5 and left L5-S1. Chest X-Ray 10/14/17 00:00 CONCLUSION: Negative examination. <Ceferino Diaz B - Last Filed: 10/16/17 10:38> Date of admission: 10/13/17 18:16 Primary care physician: Juhi Cooper DS: Diagnosis - Discharge Diagnosis (1) L4 vertebral fracture Status: Acute (2) Left leg weakness Status: Acute (3) Intractable back pain Status: Acute (4) Lumbar foraminal stenosis Status: Acute DS: Summary Hospital Course: Patient examined. Assessment and plan formulated with Tiffany Cano PA-C. I agree with the above. Appreciated input from Neurosurgery service. Pt advised to wear TLSO brace when out of bed. Ordered MRI lumbar spine and knees. Pt observed falling asleep and unsteady sitting on the edge of her bed. I was greatly concerned for fall risk. Pt requested further narcotics in radiology department and increased narcotic dosing. Studies changed to outpt. Pt will need to f/u with PCP, Neurosurgeon - Dr. Servin, Orthopedist as outpt. I am greatly concerned about pt's narcotic use and polypharmacy. I discussed this with pt. Ideally pt's narcotics and multiple medication should be pruned in the outpt setting if possible. This may prove challenging. - Time Spent with Patient Total time spent providing and/or coordinating discharge services: Results - Impressions ITS Impressions Hand X-Ray 10/13/17 13:47 CONCLUSION: Unremarkable study. Knee X-Ray 10/13/17 13:47 CONCLUSION: No evidence of recent bony injury. Lumbar Spine CT 10/13/17 13:47 CONCLUSION: 1. There is a fracture of superior endplate of L4 not present on the prior MRI as the appearance of a limbus vertebrae and postsurgical changes as above. 2. Neural foraminal compromise bilateral L3-4, bilateral L4-5, bilateral L5-S1. 3. 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 4. Lateral recess stenosis left L4-5 and left L5-S1. Chest X-Ray 10/14/17 00:00 CONCLUSION: Negative examination. Discharge Plan - Discharge Order Discharge Orders: Discharge Order (Routine); Ordered 10/14/17 Ordered By: Ceferino Diaz - Discharge Details Anticipated Discharge Date: 10/14/17 - Physicians Team Primary Care Provider: Juhi Cooper Attending Provider: Ceferino Diaz Other Providers: Raymond Johnson MD ; Surendra Triana MD
--- NOTE | 2017-10-14 16:28 | ECG ---
Date Performed: 10/13/2017 Time Performed: 22:59:57 PTAGE: 57 years EKG: Sinus rhythm RIGHT AXIS DEVIATION Compared to previous tracing, right axis deviation is new, previous tracing mauro wed left axis deviation. ABNORMAL ECG PREVIOUS TRACING : 03/20/2013 19.47 DOCTOR: Phan Vo Interpretating Date/Time 10/14/2017 16:26:23
--- NOTE | 2017-10-14 16:37 | P.DCO ---
- Diagnosis (1) L4 vertebral fracture - Physical Therapy Order: Evaluate and treat, Improve ambulation, Strength and gait training - Home Health Nursing Order: Medical education, Signs/symptoms of disease process, Medication education-adverse effect, Nursing assessment with vital signs - Certification I have seen patient Juhi Dobbs on 10/14/17. My clinical findings support the need for the requested home health care services because: Limited mobility due to disease progression, Deconditioned with increased weakness, Medication compliance is questionable, Limited ability to care for self, Need for psychosocial assistance I certify that my clinical findings support that this patient is homebound because: Impaired cognitive ability/safety, Unsteady gait/balance, Unsafe to leave home unassisted, Need for psychosocial assistance, Unable to use public transportation (1) L4 vertebral fracture Qualifiers: Encounter type: initial encounter Fracture type: closed Fracture morphology : unspecified fracture morphology Qualified Code(s): S32.049A - Unspecified fracture of fourth lumbar vertebra, initial encounter for closed fracture
[2017-10-14] MEDS ORDERED: Pantoprazole Sodium 20 MG DR Tablet PO SCH (21:00)
[2017-10-15 07:12] LABS: Free T4 (Free Thyroxine) 0.94 ng/dL (0.76-1.46); Thyroid Stimulating Hormone 27.7 uIU/mL (0.358-3.740)
[2017-10-15] MEDS ORDERED: Duloxetine 60 MG DR Capsule PO SCH (21:00)
== END 2017-10-14 18:00 | disposition home health service (06) ==
LOC: PHEFT 12:02 → PHEDA 18:16 → N06 21:35
PROVIDERS: ADMIT Hospitalist; ATTEND Hospitalist

== ENCOUNTER 2017-10-26 10:40 | Observation (INO) ==
[2017-10-26] MEDS ORDERED: Sodium Chlor 0.9% Inj 250 ML ONE (11:34)
[2017-10-26] MEDS ORDERED: Metoprolol Tartrate 25 MG Tablet PO SCH (11:49)
[2017-10-26] MEDS ORDERED: Chlorhexidine Gluconate 2% 1 Pack (2 Cloths) TOPICAL SCH (11:49)
[2017-10-26] MEDS ORDERED: Sodium Chlor 0.9% Inj 500 ML IV.SIG SCH (12:00)
[2017-10-26] MEDS ORDERED: Bupivacaine/Epinephrine 0.5% Inj 50 ML Vial ONE (12:37)
[2017-10-26] MEDS ORDERED: methylPREDNISolone acetate 40 MG/ML VIAL ONE ×2 (12:37→14:39)
[2017-10-26] MEDS ORDERED: Thrombin Topical Soln 5,000 UNIT Vial TOPICAL ONE (12:37)
[2017-10-26] MEDS ORDERED: Gelatin Size 100 Topical Foam ONE (12:38)
[2017-10-26] MEDS ORDERED: fentaNYL Citrate Inj 250 MCG/5 ML Ampul ONE (12:50)
[2017-10-26] MEDS ORDERED: Vancomycin Inj 1,000 MG in Sodium Chlor 0.9% Inj 250 ML IV.SIG SCH (13:00)
[2017-10-26] MEDS ORDERED: Neostigmine Inj 5 MG/5 ML Syringe IV.PUSH ONE (13:06)
[2017-10-26] MEDS ORDERED: Glycopyrrolate Inj 1 MG/5 ML Syringe IV.PUSH ONE (13:06)
[2017-10-26] MEDS ORDERED: Phenylephrine/NS 1000 MCG/10ML Syringe IV.PUSH ONE (13:06)
[2017-10-26] MEDS ORDERED: Lidocaine PF 1% Inj 5 ML Syringe INFILTRATN ONE (13:06)
[2017-10-26] MEDS ORDERED: Zolpidem Tartrate 5 MG Tablet PO PRN (15:00)
[2017-10-26] MEDS ORDERED: Aluminum/Magnesium/Simethacone Susp 30 ML UDC PO PRN (15:00)
[2017-10-26] MEDS ORDERED: Acetaminophen 325 MG Tablet PO PRN (15:00)
[2017-10-26] MEDS ORDERED: AZELASTINE NASAL SCH (15:00)
[2017-10-26] MEDS ORDERED: Menthol 5.8 MG Lozenge BUCCAL PRN (15:00)
--- NOTE | 2017-10-26 15:13 | P.OP ---
- Preoperative Diagnosis (1) Lumbar disc herniation with radiculopathy Date of procedure: 10/26/17 Procedure: Left L3-4 hemilaminotomy with microdiscectomy; microsurgical technique Anesthesia: BARBARAA Surgeon: Adam Servin MD Retail Sales Advisor: Sandra Serrano Estimated blood loss (mL): 25 Operation and Findings: Following administration of general endotracheal anesthesia, patient received vancomycin 1 gm intravenously. Sequential compression devices were placed for DVT prophylaxis. She was then turned in prone position on Suhail frame and the Nicholas table and all pressure points adequately padded. The lumbar region was then shaved and prepped with a Betadine and ChloraPrep. Sterile draping undertaken with Ioban. Midline incision overlying the L3-4 level was then made after infiltrating the skin with 0.5% Marcaine with epinephrine solution. The skin incision was made extending down through the fascia and then using the subperiosteal plane on the left side the muscular attachments to the spinous process and lamina were detached. Intraoperative fluoroscopy was used for level confirmation and further dissection undertaken using microtechnique with microscope magnification. The inferior portion of the L3 and superior portion of the L4 lamina were then drilled out and the underlying ligamentum flavum also removed. There was some facet arthropathy noted in the medial portion of facet was also resected and the lateral recess decompressed. Epidural venous stasis which he with the bipolar cautery along with Gelfoam and thrombin and bone wax used at the laminotomy edges for hemostasis. The thecal sac was then gently retracted with a nerve root retractor and an extruded disc fragment was identified which was superiorly migrated. Fragments were removed with pituitary forceps and the nerve root impingement along with thecal sac compression decompressed. Significant L3-4 disc degeneration with disc height collapse was also noted. The area was then copiously irrigated with vancomycin solution. The retractors removed and the muscle fascia proximal using 2-0 Vicryl interrupted stitches. 3-0 Vicryl subcuticular stitches were also placed in an interrupted fashion and planned skin closure was with Mastisol and Steri- Strips. A sterile dressing was then applied and the patient then turned in the supine position and extubated and taken to recovery room in stable condition. There were no intraoperative complications and all sponge and needle count was correct at the end of the procedure. Estimated blood loss about 25 ml.
[2017-10-26] MEDS ORDERED: HYDROmorphone PF Inj 2 MG/ML Vial ONE (15:27)
[2017-10-26] MEDS: buPROPion 150 MG 12 HR Tablet PO SCH ×2 (17:01→21:22)
[2017-10-26] MEDS: HYDROmorphone PF Inj 2 MG/ML Vial IV.PUSH PRN ×2 (17:04→18:54)
[2017-10-26] MEDS ORDERED: Pregabalin 25 MG Capsule PO SCH (21:00)
[2017-10-26] MEDS: Pregabalin 75 MG Capsule PO SCH (21:21)
[2017-10-26] MEDS: Methadone 10 MG Tablet PO SCH (21:22)
[2017-10-26] MEDS: Hydroxychloroquine 200 MG Tablet PO SCH (21:22)
[2017-10-26] MEDS: Pantoprazole Sodium 20 MG DR Tablet PO SCH (21:22)
[2017-10-27] MEDS: HYDROmorphone PF Inj 2 MG/ML Vial IV.PUSH PRN ×2 (03:55→10:14)
[2017-10-27] MEDS: Lactobacillus Acidophilus/L. Spores Tablet PO SCH ×2 (04:48→10:08)
[2017-10-27] MEDS: Sod Chloride 0.9% Inj 1,000 ML IV.SIG SCH ×2 (04:50→14:22)
[2017-10-27] MEDS: Levothyroxine 75 MCG Tablet PO SCH (05:36)
[2017-10-27] MEDS: Levothyroxine 100 MCG Tablet PO SCH (05:36)
[2017-10-27] MEDS ORDERED: DILTIAZEM HCL 180 MG PO SCH (09:00)
[2017-10-27] MEDS ORDERED: PT:LEFLUNOMIDE 20 MG PO SCH (09:00)
--- NOTE | 2017-10-27 09:47 | P.CONIM ---
History of Present Illness Reason for Consult: post-op medical management Primary Care Provider: Juhi Cooper History of Present Illness: This is a 57-year-old female with a history of hypertension, hyperlipidemia, chronic low back pain, RA, [place] esophagus, Right breast cancer, Chronic Kidney disease, Colon polyps, Degenerative cervical disc, Diverticulosis, GERD, Hypertension, Hypothyroidism s/p thyroidectomy who presents to the emergency department for evaluation of left knee pain. The patient underwent an L5-S1 lumbar fusion in July [address] Servin. States that since then she has had dropfoot of the left leg. Patient now S/P 10/26/17 Left L3-4 hemilaminotomy with microdiscectomy; microsurgical technique with Adam Servin MD. We have been consulted to assist with post-operative medical comanagement. Patient resting in bed offers no complaints at this time. Patient reports minimal post-op pain. Patient denies chest pain, SOB, fevers, chills, N/V/D/C. Looking forward to go to rehab soon. PAST MEDICAL HISTORY: [place] esophagus Right breast invasive moderately differentiated carcinoma s/p lumpectomy with sentinel lymph node biopsy and intraoperative radiation 05/24/2017 Chronic Kidney disease Colon polyps Degenerative cervical disc Diverticulosis GERD (gastroesophageal reflux disease) Hemorrhoids Hypertension Hypothyroidism s/p thyroidectomy Rheumatoid arthritis PAST SURGICAL HISTORY: 3 sections Cholecystectomy Colonoscopy - 2014 EGD with biopsy - 2014 Shoulder surgery Thyroidectomy Tonsillectomy Right breast lumpectomy with sentinel lymph node biopsy and intraoperative radiation 05/24/2017 FAMILY HISTORY: Ms. Dobbs's mother is alive. Her father is . Ms. Dobbs has 2 sons: 2 alive. She has 1 daughter who is alive. SOCIAL HISTORY: . Occasional ETOH use She was a daily smoker who has smoked 1.0 pack/day for 30 years reports that she has quit smoking, now using E-cigarettes Review of Systems All other systems reviewed negative except as stated in HPI PMFSH - History History Provided By: Patient - Medical History Medical History: Medical History (Last Reviewed 11/02/17 @ 17:44 by TABITHA Belle) Back pain Breast cancer Chest pain Depression FH: mastectomy Foot drop, left GERD (gastroesophageal reflux disease) High cholesterol Hypertension Hypothyroid Left knee pain Rheumatoid arthritis - Surgical History Surgical History: Surgical History (Last Reviewed 11/02/17 @ 17:43 by TABITHA Belle) H/O section H/O shoulder surgery H/O thyroidectomy History of back surgery History of cholecystectomy Hx of tonsillectomy - Tobacco History Second Hand Smoke Exposure: No Tobacco Use In Past 30 Days: No Smoking Status: Never smoker Tobacco Type: Cigarettes - Alcohol History How Often Do You Have a Drink Containing Alcohol: Never - Substance Use History Substance History: No History of Abuse - Travel History Recent Travel in the [place] Within the Last 8 Weeks: No Recent Travel Out of the Country Within the Last 8 Weeks: No Medications and Allergies Allergies Allergy/AdvReac Type Severity Reaction Status Date / Time adhesive Allergy Severe Generalized Verified 10/26/17 11:15 Rash clarithromycin Allergy Severe Rash Verified 10/26/17 11:15 codeine Allergy Severe ITCHING Verified 10/26/17 11:15 latex Allergy Severe RASH Verified 10/26/17 11:15 morphine Allergy Severe SOB, RASH Verified 10/26/17 11:15 SWELLING methotrexate Allergy Intermediate ELEVATED Verified 10/26/17 11:15 LIVER ENZYMES. Active Medications: Active Medications Acetaminophen (Tylenol) 650 mg PO Q4H PRN PRN Reason: TEMPERATURE > 101.5 F Al Hydrox/Mg Hydrox/Simethicone (Mag-Al Plus Susp Liq) 30 ml PO Q6H PRN PRN Reason: DYSPEPSIA Al Hydroxide/Mg Hydroxide (Milk Of Magnesia Liq) 30 ml PO Q12H PRN PRN Reason: Mild Constipation Albuterol (Albuterol Neb (Prn)) 2.5 mg NEB Q4HR NEB PRN PRN Reason: WHEEZING Anastrozole (Arimidex) 1 mg PO DAILY [facility] Bisacodyl (Dulcolax Supp) 10 mg RECTAL DAILY PRN PRN Reason: SEVERE CONSITIPATION Bupropion HCl (Wellbutrin Sr) 150 mg PO BID [facility] Last Admin: 10/26/17 21:22 Dose: 150 mg Chlorhexidine Gluconate (Chlorhexidine 2% Cloth) 3 pack TOPICAL RECEPTIONIST SECRETARY [facility] Stop: 10/29/17 11:48 Last Admin: 10/26/17 12:08 Dose: 3 pack Clonidine HCl (Catapres) 0.1 mg PO Q6H PRN PRN Reason: SYSTOLIC BP GREATER THAN 160 Clonidine HCl (Catapres) 0.1 mg PO Q6H PRN PRN Reason: SYS BP GREATER THAN 170 [facility] Cyclobenzaprine HCl (Flexeril) 10 mg PO Q8H PRN PRN Reason: MUSCLE SPASM Last Admin: 10/27/17 03:55 Dose: 10 mg Diltiazem HCl (Cardizem Cd 24hr) 180 mg PO DAILY [facility] Duloxetine HCl (Cymbalta) 60 mg PO DAILY [facility] Fluticasone Propionate (Flonase Nasal [place]) 1 spray EACH NARE DAILY [facility] Furosemide (Lasix) 20 mg PO DAILY [facility] Hydromorphone HCl (Dilaudid Pf Inj) 1 mg IV.PUSH Q2H PRN PRN Reason: PAIN SCALE 7 TO 10 SEVERE Last Admin: 10/27/17 03:55 Dose: 1 mg Hydroxychloroquine Sulfate (Plaquenil) 200 mg PO BID [facility] Last Admin: 10/26/17 21:22 Dose: 200 mg Sodium Chloride (Ns Inj) 500 mls @ 30 mls/hr IV.SIG .Q10H [facility] Last Admin: 10/27/17 04:50 Dose: Not Given Vancomycin HCl 1,000 mg/ (Sodium Chloride) 250 mls @ 250 mls/hr IV.SIG RECEPTIONIST SECRETARY [facility] Stop: 10/29/17 12:59 Last Infusion: 10/27/17 08:51 Dose: Infused Sodium Chloride (Ns Inj) 1,000 mls @ 30 mls/hr IV.SIG .Q24H [facility] Last Admin: 10/27/17 04:50 Dose: Not Given Potassium Chloride/Sodium Chloride (Ns + Kcl 20 Meq Inj) 1,000 mls @ 100 mls/ hr IV.CONT .Q10H [facility] Stop: 10/27/17 15:59 Last Admin: 10/27/17 03:54 Dose: 100 mls/hr Lactobacillus Acidophilus (Lactinex) 1 tab PO DAILY [facility] Last Admin: 10/27/17 04:48 Dose: Not Given Lactulose (Lactulose Liq) 30 ml PO DAILY PRN PRN Reason: SEVERE CONSITIPATION Levothyroxine Sodium (Synthroid) 75 mcg PO DAILY@0600 [facility] Last Admin: 10/27/17 05:36 Dose: 75 mcg Levothyroxine Sodium (Synthroid) 100 mcg PO DAILY@0600 [facility] Last Admin: 10/27/17 05:36 Dose: 100 mcg Lisinopril (Prinivil) 40 mg PO DAILY [facility] Menthol (Ozawkie) 1 lozenge BUCCAL UNSCH PRN PRN Reason: SORE THROAT Methadone HCl (Dolophine) 10 mg PO Q12HR [facility] Last Admin: 10/26/17 21:22 Dose: 10 mg Methadone HCl (Dolophine) 10 mg PO Q6H PRN PRN Reason: PAIN SCALE 4 TO 6 MODERATE Methylprednisolone (Medrol) 4 mg PO DAILY [facility] Metoprolol Tartrate (Lopressor) 25 mg PO RECEPTIONIST SECRETARY [facility] Last Admin: 10/26/17 12:09 Dose: Not Given Miscellaneous Information ([facility] [facility] 1 each OTHER UNSCH PRN PRN Reason: SEE LABEL COMMENTS Stop: 10/27/17 15:52 Multivitamins/Minerals (Theragran-M) 1 tab PO DAILY [facility] Ondansetron HCl (Zofran Inj) 4 mg IV.PUSH Q6H PRN PRN Reason: NAUSEA OR VOMITING Pantoprazole Sodium (Protonix) 20 mg PO BID [facility] Last Admin: 10/26/17 21:22 Dose: 20 mg Pt:Astelin( Azelastine) Nasal Spran 0 each NASAL Q12H [facility] Last Admin: 10/26/17 17:00 Dose: Not Given Pt:Leflunomide 20 Mg 0 each PO DAILY [facility] Povidone Iodine (Betadine 5% Antisepsis Kit) 1 applicatio EACH NARE RECEPTIONIST SECRETARY [facility] Stop: 10/29/17 11:48 Last Admin: 10/26/17 12:08 Dose: 1 applicatio Pravastatin Sodium (Pravachol) 40 mg PO QPM [facility] Last Admin: 10/26/17 17:08 Dose: 40 mg Pregabalin (Lyrica) 75 mg PO BID [facility] Last Admin: 10/26/17 21:21 Dose: 75 mg Promethazine HCl (Phenergan Inj) 25 mg IM Q4H PRN PRN Reason: NAUSEA OR VOMITING Sennosides (Senokot) 17.2 mg PO Q12H PRN PRN Reason: Moderate Constipation Vitamin D (Vitamin D3) 5,000 unit PO DAILY [facility] Zolpidem Tartrate (Ambien) 5 mg PO HS PRN PRN Reason: INSOMNIA Exam Vital signs: Vital Signs 10/26/17 11:29 10/26/17 15:11 10/26/17 15:15 Temperature 97.7 F 97.9 F Pulse Rate 80 86 84 Respiratory Rate 16 16 16 Blood Pressure 121/75 161/76 H 151/70 H Pulse Oximetry 97 100 96 10/26/17 15:30 10/26/17 15:45 10/26/17 16:00 Temperature 98.2 F Pulse Rate 85 79 79 Respiratory Rate 16 16 16 Blood Pressure 150/72 H 147/72 H 153/77 H Pulse Oximetry 96 96 94 L 10/26/17 18:44 10/26/17 19:53 10/27/17 00:00 Temperature 98.4 F 99.6 F Pulse Rate 78 84 Respiratory Rate 18 18 Blood Pressure 165/77 H 146/69 H Pulse Oximetry 95 94 L 10/27/17 04:00 10/27/17 08:00 Temperature 100 F H 98.8 F Pulse Rate 86 87 Respiratory Rate 18 16 Blood Pressure 176/77 H 179/83 H Pulse Oximetry 95 94 L Intake & Output 10/26/17 10/27/17 10/27/17 18:59 06:59 18:59 Intake Total 1350 / 1350 275 / 275 250 / 250 Output Total Balance 1321 / 1321 275 / 275 250 / 250 Weight 84.8 kg 84.8 kg Intake: IV 100 / 100 200 / 200 250 / 250 NS + KCl 20 mEq Inj 1,000 ML @ 100 / 100 100 mls/hr IV.CONT .Q10H [facility] Rx #:[id number] Vancomycin Inj 1,000 MG In NS 250 / 250 Inj 250 ML @ 250 mls/hr IV.SIG RECEPTIONIST SECRETARY [facility] Rx#:[id number] Ancef Inj 1,000 MG In NS Inj 100 / 100 100 / 100 100 ML @ 200 mls/hr IV.SIG Q8H [facility] Rx#:[id number] Oral 0 / 0 75 / 75 Anesthesia Amount 1250 / 1250 Output: Urine 0 / 0 Estimated Blood Loss Other: # Voids 2 Weight On Admission 84.8 kg Narrative: GENERAL: This is a well-nourished, well-developed patient, in no apparent distress. CARDIOVASCULAR: Regular rate and rhythm RESPIRATORY: Clear to auscultation. Breath sounds equal bilaterally. GASTROINTESTINAL: Abdomen soft, non-tender, nondistended. Normal active bowel sounds MUSCULOSKELETAL: Extremities without clubbing, cyanosis, or edema. NEURO: Alert & Oriented x4 to person, place, time, situation. Moves all ext x4 Results - Labs CBC & Chem 7: 10/31/17 04:47 10/31/17 04:47 - Imaging Impressions Lumbar Spine X-Ray 10/26/17 00:00 CONCLUSION: Pointer is at L3/L4. Assessment and Plan - Assessment (1) Lumbar disc herniation with radiculopathy Code(s): M51.16 - Intervertebral disc disorders with radiculopathy, lumbar region Status: Acute Plan: This is a 57-year-old female with a history of hypertension, hyperlipidemia, chronic low back pain, RA, [place] esophagus, Right breast cancer, Chronic Kidney disease, Colon polyps, Degenerative cervical disc, Diverticulosis, GERD, Hypertension, Hypothyroidism s/p thyroidectomy. Patient now S/P 10/26/17 Left L3-4 hemilaminotomy with microdiscectomy; microsurgical technique with Adam Servin MD. We have been consulted to assist with post-operative medical comanagement. Lumbar disc herniation with radiculopathy Patient now S/P 10/26/17 Left L3-4 hemilaminotomy with microdiscectomy; microsurgical technique with Adam Servin MD. We have been consulted to assist with post-operative medical comanagement. Post-op pain management per Neurosurgery Depression/anxiety continue home Cymbalta depression/anxiety likely contributing to pain perception Right breast cancer patient follows with Dr. Joyce outpatient invasive moderately differentiated carcinoma s/p lumpectomy with sentinel lymph node biopsy and intraoperative radiation 05/24/2017, with Dr. Chavez Continue anastrozole Hypertension Continue home Lisinopril 40 mg daily and diltiazem 180 mg daily Hypothyroidism s/p thyroidectomy Patient follows outpatient with Dr. Mcduffie continue home levothyroxine 175 mcg daily GERD [place] Esophagitis patient follows outpatient with Dr. Rodrigez Continue patient's home Prilosec 20 mg BID Rheumatoid arthritis Continue home Leflunomide 20 mg daily, hydroxychloroquine DVT prophylaxis with SCDs - Attending Attestation Patient examined. Assessment and plan formulated with Tiffany Cano PA-C. I agree with the above.
[2017-10-27] MEDS: dilTIAZem CD 180 MG Capsule PO SCH (10:07)
[2017-10-27] MEDS: buPROPion 150 MG 12 HR Tablet PO SCH ×2 (10:07→21:11)
[2017-10-27] MEDS: Lisinopril 20 MG Tablet PO SCH (10:07)
[2017-10-27] MEDS: Furosemide 20 MG Tablet PO SCH (10:07)
[2017-10-27] MEDS: Multivitamin/Minerals Therapeutic Tablet PO SCH (10:07)
[2017-10-27] MEDS: Hydroxychloroquine 200 MG Tablet PO SCH ×2 (10:08→21:10)
[2017-10-27] MEDS: Pregabalin 75 MG Capsule PO SCH ×2 (10:08→21:09)
[2017-10-27] MEDS: Pantoprazole Sodium 20 MG DR Tablet PO SCH ×2 (10:09→21:09)
[2017-10-27] MEDS: Anastrozole 1 MG Tablet PO SCH (10:09)
[2017-10-27] MEDS: Methadone 10 MG Tablet PO SCH ×2 (10:10→21:10)
[2017-10-27] MEDS: Duloxetine 60 MG DR Capsule PO SCH (10:10)
--- NOTE | 2017-10-27 12:08 | P.PNNS ---
Subjective Interval history: Did well overnight pain improved down left leg Physical Exam Vital signs: Vital Signs 10/26/17 15:11 10/26/17 15:15 10/26/17 15:30 Temperature 97.9 F Pulse Rate 86 84 85 Respiratory Rate 16 16 16 Blood Pressure 161/76 H 151/70 H 150/72 H Pulse Oximetry 100 96 96 10/26/17 15:45 10/26/17 16:00 10/26/17 18:44 Temperature 98.2 F Pulse Rate 79 79 Respiratory Rate 16 16 18 Blood Pressure 147/72 H 153/77 H Pulse Oximetry 96 94 L 10/26/17 19:53 10/27/17 00:00 10/27/17 04:00 Temperature 98.4 F 99.6 F 100 F H Pulse Rate 78 84 86 Respiratory Rate 18 18 18 Blood Pressure 165/77 H 146/69 H 176/77 H Pulse Oximetry 95 94 L 95 10/27/17 08:00 Temperature 98.8 F Pulse Rate 87 Respiratory Rate 16 Blood Pressure 179/83 H Pulse Oximetry 94 L Intake & Output 10/26/17 10/27/17 10/27/17 18:59 06:59 18:59 Intake Total 1350 / 1350 275 / 275 250 / 250 Output Total Balance 1321 / 1321 275 / 275 250 / 250 Weight 84.8 kg 84.8 kg Intake: IV 100 / 100 200 / 200 250 / 250 NS + KCl 20 mEq Inj 1,000 ML @ 100 / 100 100 mls/hr IV.CONT .Q10H [facility] Rx #:[id number] Vancomycin Inj 1,000 MG In NS 250 / 250 Inj 250 ML @ 250 mls/hr IV.SIG DITCH INSPECTOR [facility] Rx#:[id number] Ancef Inj 1,000 MG In NS Inj 100 / 100 100 / 100 100 ML @ 200 mls/hr IV.SIG Q8H [facility] Rx#:[id number] Oral 0 / 0 75 / 75 Anesthesia Amount 1250 / 1250 Output: Urine 0 / 0 Estimated Blood Loss Other: # Voids 2 Date of Last Bowel Movement 10/25/17 Weight On Admission 84.8 kg Narrative: sitting in chair A&O x 3 CN II-XII intact Dressing c/d/i Motor 5/5 UE/LE and baseline weakness left leg, ambulatory with assistance Assessment and Plan - Plan 57yoF with recent lumbar fusions and L3/4 discectomy (10/26, Malathi) Has been approved by [facility] for admission tomorrow (10/28). She is cleared for transfer Mobilize and follow-up with Dr. Servin's office per his schedule (?4-6 weeks). Continue PT for strengthening.
[2017-10-27] MEDS: Docusate Sodium 100 MG Capsule PO SCH (21:10)
[2017-10-28] MEDS: Levothyroxine 75 MCG Tablet PO SCH (05:58)
[2017-10-28] MEDS: Levothyroxine 100 MCG Tablet PO SCH (05:58)
[2017-10-28] MEDS: Bisacodyl 10 MG Supp RECTAL PRN (08:42)
--- NOTE | 2017-10-28 11:17 | P.PNNS ---
Subjective Interval history: Slated for rehab transfer today but vomited and has not had BM for 4 days (2 days prior to OR). Rehab physician deferred transfer to tomorrow Physical Exam Vital signs: Vital Signs 10/27/17 12:00 10/27/17 16:00 10/27/17 20:00 Temperature 98.6 F 97.8 F 98 F Pulse Rate 84 81 87 Respiratory Rate 18 18 Blood Pressure 131/70 150/74 H 146/82 H Pulse Oximetry 96 96 95 10/28/17 00:00 10/28/17 08:00 Temperature 99.2 F 98.4 F Pulse Rate 81 89 Respiratory Rate 18 20 Blood Pressure 136/85 143/78 H Pulse Oximetry 95 98 Intake & Output 10/27/17 10/28/17 10/28/17 18:59 06:59 18:59 Intake Total 1450 / 1450 240 / 240 Balance 1450 / 1450 240 / 240 Weight 84.8 kg Intake: IV 250 / 250 Vancomycin Inj 1,000 MG In NS 250 / 250 Inj 250 ML @ 250 mls/hr IV.SIG POOLING OPERATOR [facility] Rx#:[id number] Oral 1200 / 1200 240 / 240 Other: # Voids 6 2 Date of Last Bowel Movement 10/25/17 10/25/17 Narrative: sitting in chair A&O x 3 CN II-XII intact Dressing c/d/i Motor 5/5 UE/LE and baseline weakness left leg, ambulatory with assistance Assessment and Plan - Plan 57yoF with recent lumbar fusions and L3/4 discectomy (10/26, Malathi) Has been approved by [facility] for admission pending resolution of vomiting/ bowel movements, likely tomorrow. Suppository given. D/w with primary medicine as well. Mobilize and follow-up with Dr. Servin's office per his schedule. Continue PT for strengthening.
--- NOTE | 2017-10-28 14:23 | P.PNIM ---
Subjective Interval history: Follow up: Lumbar disc herniation with radiculopathy Patient was planning to go to rehab today but had episode of vomiting x 1 and now reports no BM x 4 days Physical Exam Vital signs: Vital Signs 10/27/17 16:00 10/27/17 20:00 10/28/17 00:00 Temperature 97.8 F 98 F 99.2 F Pulse Rate 81 87 81 Respiratory Rate 18 18 18 Blood Pressure 150/74 H 146/82 H 136/85 Pulse Oximetry 96 95 95 10/28/17 08:00 Temperature 98.4 F Pulse Rate 89 Respiratory Rate 20 Blood Pressure 143/78 H Pulse Oximetry 98 Intake & Output 10/27/17 10/28/17 10/28/17 18:59 06:59 18:59 Intake Total 1450 / 1450 240 / 240 Balance 1450 / 1450 240 / 240 Weight 84.8 kg Intake: IV 250 / 250 Vancomycin Inj 1,000 MG In NS 250 / 250 Inj 250 ML @ 250 mls/hr IV.SIG STRAIGHT TOOTH GEAR GENERATOR OPERATOR [facility] Rx#:[id number] Oral 1200 / 1200 240 / 240 Other: # Voids 6 2 Date of Last Bowel Movement 10/25/17 10/25/17 Narrative: GENERAL: This is a well-nourished, well-developed patient, in no apparent distress. CARDIOVASCULAR: Regular rate and rhythm RESPIRATORY: Clear to auscultation. Breath sounds equal bilaterally. GASTROINTESTINAL: Abdomen soft, non-tender, nondistended. Normal active bowel sounds MUSCULOSKELETAL: Extremities without clubbing, cyanosis, or edema. NEURO: Alert & Oriented x4 to person, place, time, situation. Moves all ext x4 Assessment and Plan - Assessment (1) Lumbar disc herniation with radiculopathy Code(s): M51.16 - Intervertebral disc disorders with radiculopathy, lumbar region Status: Acute Plan: This is a 57-year-old female with a history of hypertension, hyperlipidemia, chronic low back pain, RA, [place] esophagus, Right breast cancer, Chronic Kidney disease, Colon polyps, Degenerative cervical disc, Diverticulosis, GERD, Hypertension, Hypothyroidism s/p thyroidectomy. Patient now S/P 10/26/17 Left L3-4 hemilaminotomy with microdiscectomy; microsurgical technique with Adam Servin MD. We have been consulted to assist with post-operative medical comanagement. Lumbar disc herniation with radiculopathy Patient now S/P 10/26/17 Left L3-4 hemilaminotomy with microdiscectomy; microsurgical technique with Adam Servin MD. We have been consulted to assist with post-operative medical comanagement. Post-op pain management per Neurosurgery Possible Ileus Patient was planning to go to rehab today but had episode of vomiting x 1 and now admits to no BM x 4 days KUB ordered Patient has been given lactulose and dul supp given fleets enema and relistor x 1 DC reg diet, patient may have sips of clears Possible UTI Received call from Julian Richardson Neurosurgery PRODUCT ARCHITECT reported that pre-op urine had WBCs, nitrates and bacteria present request that I start oral abx started Bactrim DS BID I do not have report from UA repeat UA C&S ordered Depression/anxiety continue home Cymbalta depression/anxiety likely contributing to pain perception Right breast cancer patient follows with Dr. Joyce outpatient invasive moderately differentiated carcinoma s/p lumpectomy with sentinel lymph node biopsy and intraoperative radiation 05/24/2017, with Dr. Chavez Continue anastrozole Hypertension Continue home Lisinopril 40 mg daily and diltiazem 180 mg daily Hypothyroidism s/p thyroidectomy Patient follows outpatient with Dr. Mcduffie continue home levothyroxine 175 mcg daily GERD [place] Esophagitis patient follows outpatient with Dr. Rodrigez Continue patient's home Prilosec 20 mg BID Rheumatoid arthritis Continue home Leflunomide 20 mg daily, hydroxychloroquine DVT prophylaxis with SCDs
[2017-10-28] MEDS ORDERED: Sod Phosphate/Sod Biphosphate (Adult) Enema 133 ML Bottle RECTAL ONE (14:24)
[2017-10-28] MEDS ORDERED: HYDROmorphone PF Inj 2 MG/ML Vial IV.PUSH PRN (14:25)
[2017-10-28] MEDS ORDERED: Methylnaltrexone Inj 12 MG/0.6 ML Vial SQ ONE (14:40)
[2017-10-28] MEDS: Lisinopril 20 MG Tablet PO SCH (17:21)
[2017-10-28] MEDS: Anastrozole 1 MG Tablet PO SCH (17:21)
[2017-10-28] MEDS: Methadone 10 MG Tablet PO SCH ×2 (17:21→21:57)
[2017-10-28] MEDS: Pantoprazole Sodium 20 MG DR Tablet PO SCH ×2 (17:22→22:01)
[2017-10-28] MEDS: Multivitamin/Minerals Therapeutic Tablet PO SCH (17:22)
[2017-10-28] MEDS: Lactobacillus Acidophilus/L. Spores Tablet PO SCH (17:22)
[2017-10-28] MEDS: Furosemide 20 MG Tablet PO SCH (17:22)
[2017-10-28] MEDS: Hydroxychloroquine 200 MG Tablet PO SCH ×2 (17:22→22:01)
[2017-10-28] MEDS: Pregabalin 75 MG Capsule PO SCH ×2 (17:22→21:57)
[2017-10-28] MEDS: Duloxetine 60 MG DR Capsule PO SCH (17:23)
[2017-10-28] MEDS: Docusate Sodium 100 MG Capsule PO SCH ×2 (17:23→22:01)
[2017-10-28] MEDS: dilTIAZem CD 180 MG Capsule PO SCH (17:23)
[2017-10-28] MEDS: Sod Chloride 0.9% Inj 1,000 ML IV.SIG SCH (17:24)
[2017-10-28] MEDS: buPROPion 150 MG 12 HR Tablet PO SCH ×2 (17:24→21:57)
[2017-10-29] MEDS: Levothyroxine 100 MCG Tablet PO SCH (05:15)
[2017-10-29] MEDS: Bisacodyl 10 MG Supp RECTAL PRN (05:15)
[2017-10-29] MEDS: Levothyroxine 75 MCG Tablet PO SCH (05:15)
[2017-10-29] MEDS: Docusate Sodium 100 MG Capsule PO SCH (09:00)
[2017-10-29] MEDS: Multivitamin/Minerals Therapeutic Tablet PO SCH (09:00)
--- NOTE | 2017-10-29 09:09 | P.PNIM ---
Subjective Interval history: Follow up: Lumbar disc herniation with radiculopathy Patient was planning to go to rehab 10/29 Patient continues to have n/v unable to keep PO intake down. one BM last night but no flatus today Physical Exam Vital signs: Vital Signs 10/28/17 12:00 10/28/17 16:00 10/28/17 20:00 Temperature 98.3 F 99.1 F 99.4 F Pulse Rate 89 85 90 Respiratory Rate 14 16 18 Blood Pressure 146/83 H 138/82 129/78 Pulse Oximetry 94 L 92 L 94 L 10/29/17 00:00 Temperature 98.8 F Pulse Rate 97 H Respiratory Rate 18 Blood Pressure 139/73 Pulse Oximetry 98 Intake & Output 10/28/17 10/29/17 10/29/17 18:59 06:59 18:59 Intake Total 780 / 780 Output Total 200 / 200 Balance 580 / 580 Intake: Oral 780 / 780 Output: Emesis 200 / 200 Other: # Voids 2 Date of Last Bowel Movement 10/24/17 10/28/17 # Bowel Movements 1 Narrative: GENERAL: This is a well-nourished, well-developed patient, in no apparent distress. CARDIOVASCULAR: Regular rate and rhythm RESPIRATORY: Clear to auscultation. Breath sounds equal bilaterally. GASTROINTESTINAL: Abdomen soft, non-tender, distended. scant hypoactive bowel sounds MUSCULOSKELETAL: Extremities without clubbing, cyanosis, or edema. NEURO: Alert & Oriented x4 to person, place, time, situation. Moves all ext x4 Results - Labs CBC & Chem 7: 10/29/17 08:54 10/29/17 08:54 - Imaging Impressions Abdomen X-Ray 10/28/17 00:00 CONCLUSION: Nonspecific bowel gas pattern without dilatation to suggest obstruction or ileus. Assessment and Plan - Assessment (1) Lumbar disc herniation with radiculopathy Code(s): M51.16 - Intervertebral disc disorders with radiculopathy, lumbar region Status: Acute Plan: This is a 57-year-old female with a history of hypertension, hyperlipidemia, chronic low back pain, RA, [place] esophagus, Right breast cancer, Chronic Kidney disease, Colon polyps, Degenerative cervical disc, Diverticulosis, GERD, Hypertension, Hypothyroidism s/p thyroidectomy. Patient now S/P 10/26/17 Left L3-4 hemilaminotomy with microdiscectomy; microsurgical technique with Adam Servin MD. We have been consulted to assist with post-operative medical comanagement. Lumbar disc herniation with radiculopathy Patient now S/P 10/26/17 Left L3-4 hemilaminotomy with microdiscectomy; microsurgical technique with Adam Servin MD. We have been consulted to assist with post-operative medical comanagement. Post-op pain management per Neurosurgery Possible Ileus Patient was planning to go to rehab today but had episode of vomiting x 1 and now admits to no BM x 4 days KUB ordered - 10/28 Nonspecific bowel gas pattern without dilatation to suggest obstruction or ileus. Patient has been given lactulose and dul supp given fleets enema and relistor x 1 10/29 NPO IVF N/V DC zofran, start Reglan Possible UTI Received call from Julian Richardson Neurosurgery TOBACCO EDUCATOR reported that pre-op urine had WBCs, nitrates and bacteria present request that I start oral abx started Bactrim DS BID I do not have report from UA repeat UA C&S ordered Depression/anxiety continue home Cymbalta depression/anxiety likely contributing to pain perception Right breast cancer patient follows with Dr. Joyce outpatient invasive moderately differentiated carcinoma s/p lumpectomy with sentinel lymph node biopsy and intraoperative radiation 05/24/2017, with Dr. Chavez Continue anastrozole Hypertension Continue home Lisinopril 40 mg daily and diltiazem 180 mg daily Hypothyroidism s/p thyroidectomy Patient follows outpatient with Dr. Mcduffie continue home levothyroxine 175 mcg daily GERD [place] Esophagitis patient follows outpatient with Dr. Rodrigez Continue patient's home Prilosec 20 mg BID Rheumatoid arthritis Continue home Leflunomide 20 mg daily, hydroxychloroquine DVT prophylaxis with SCDs The exam, history, and the medical decision-making described in the above note were completed with the assistance of the mid-level provider. I reviewed and agree with the findings presented. I attest that I had a [id number] encounter with the patient on the same day, and personally performed and documented my assessment and findings in the medical record. mild ileus resolved with laxative/relistor more n/v today. ivf and reglan. hopefully dc to rehab in AM
[2017-10-29] MEDS: Duloxetine 60 MG DR Capsule PO SCH (09:23)
[2017-10-29] MEDS: Pregabalin 75 MG Capsule PO SCH ×2 (09:23→20:33)
[2017-10-29] MEDS: Anastrozole 1 MG Tablet PO SCH (09:23)
[2017-10-29] MEDS: dilTIAZem CD 180 MG Capsule PO SCH (09:23)
[2017-10-29] MEDS: Methadone 10 MG Tablet PO SCH ×2 (09:24→20:33)
[2017-10-29] MEDS: buPROPion 150 MG 12 HR Tablet PO SCH ×2 (09:24→20:34)
[2017-10-29] MEDS: Lisinopril 20 MG Tablet PO SCH (09:25)
[2017-10-29] MEDS: Furosemide 20 MG Tablet PO SCH (09:25)
[2017-10-29] MEDS: Lactobacillus Acidophilus/L. Spores Tablet PO SCH (09:25)
[2017-10-29] MEDS: Hydroxychloroquine 200 MG Tablet PO SCH ×2 (09:25→20:34)
[2017-10-29 09:52] LABS: Baso # (Auto) 0.1 th/mm3 (0.0-0.2); Baso % (Auto) 0.4 % (0.0-2.0); Eos # (Auto) 0.2 th/mm3 (0.0-0.4); Eos % (Auto) 1.7 % (0.0-4.0); Hematocrit 44.7 % (35.0-46.0); Hemoglobin 14.7 gm/dL (11.6-15.3); Lymph # (Auto) 2.3 th/mm3 (1.0-4.8); Lymph % (Auto) 17.9 % (9.0-44.0); Mean Corpuscular HGB Conc 32.8 % (32.0-36.0); Mean Corpuscular Volume 91.6 fL (80.0-100.0); Mean Platelet Volume 10.8 fL (7.0-11.0); Neut # (Auto) 9.1 th/mm3 (1.8-7.7); Platelet Count 296 th/mm3 (150-450); Red Blood Count 4.88 mil/mm3 (4.00-5.30); Red Cell Distribution Width 16.4 % (11.6-17.2); White Blood Count 12.7 th/mm3 (4.0-11.0)
[2017-10-29] MEDS: Sod Chloride 0.9% Inj 1,000 ML IV.CONT SCH (10:00)
[2017-10-29] MEDS: Pantoprazole Inj 40 MG Vial IV.PUSH SCH (10:00)
[2017-10-29 10:18] LABS: Calcium 9.5 mg/dL (8.5-10.1); Carbon Dioxide 32.3 meq/L (21.0-32.0); Potassium 3.8 meq/L (3.5-5.1)
--- NOTE | 2017-10-29 13:18 | P.PNNS ---
Subjective Interval history: Pt states feeling much better. She states she had multiple bouts of vomiting over weekend and also this morning. She states she fell asleep and is feeling better with IVF. <Julian Richardson - Last Filed: 10/29/17 13:12> Physical Exam Vital signs: Vital Signs 10/28/17 16:00 10/28/17 20:00 10/29/17 00:00 Temperature 99.1 F 99.4 F 98.8 F Pulse Rate 85 90 97 H Respiratory Rate 16 18 18 Blood Pressure 138/82 129/78 139/73 Pulse Oximetry 92 L 94 L 98 10/29/17 08:00 10/29/17 12:00 Temperature 98.3 F 97.9 F Pulse Rate 90 95 H Respiratory Rate 18 18 Blood Pressure 143/82 H 125/58 L Pulse Oximetry 93 L 93 L Intake & Output 10/28/17 10/29/17 10/29/17 18:59 06:59 18:59 Intake Total 780 / 780 Output Total 200 / 200 Balance 580 / 580 Intake: Oral 780 / 780 Output: Emesis 200 / 200 Other: # Voids 2 Date of Last Bowel Movement 10/24/17 10/28/17 # Bowel Movements 1 - Constitutional no acute distress - Routine HEENT Exam Head: Present: normocephalic, atraumatic Eye: Present: PERRL ENT: Present: oropharynx clear - Routine Respiratory Exam Present: CTA bilaterally. Absent: respiratory distress, rhonchi, wheezes - Routine Cardiovascular Exam Present: RRR, S1, S2. Absent: murmur - Routine Abdominal Exam Present: soft, tenderness (mild soreness.). Absent: normoactive bowel sounds ( diminished.), distended (Distention resolved.), firm - Routine Skin Exam Absent: cyanosis, erythema Comments: Pt log rolled incision bandage dry. Changed today by RN and reported clean and dry. - Routine Neurological Exam Present: alert, oriented X3, motor deficit (improvement in left EHL 4-/5. Pt with weakness left knee extension 1/5.) - Routine Psychiatric Exam Present: normal affect, normal thought process, cooperative. Absent: anxious, agitated <Julian Richardson - Last Filed: 10/29/17 13:12> Vital signs: Vital Signs 10/28/17 20:00 10/29/17 00:00 10/29/17 08:00 Temperature 99.4 F 98.8 F 98.3 F Pulse Rate 90 97 H 90 Respiratory Rate 18 18 18 Blood Pressure 129/78 139/73 143/82 H Pulse Oximetry 94 L 98 93 L 10/29/17 12:00 10/29/17 16:00 Temperature 97.9 F 98.7 F Pulse Rate 95 H 84 Respiratory Rate 18 18 Blood Pressure 125/58 L 94/58 L Pulse Oximetry 93 L 91 L Intake & Output 10/28/17 10/29/17 10/29/17 18:59 06:59 18:59 Intake Total 780 / 780 Output Total 200 / 200 Balance 580 / 580 Intake: Oral 780 / 780 Output: Emesis 200 / 200 Other: # Voids 2 Date of Last Bowel Movement 10/24/17 10/28/17 # Bowel Movements 1 <Adam Servin - Last Filed: 10/29/17 18:27> Assessment and Plan - Assessment (1) Degenerative disc disease, lumbar Code(s): M51.36 - Other intervertebral disc degeneration, lumbar region Status : Acute (2) Lumbar spinal stenosis Code(s): M48.061 - Spinal stenosis, lumbar region without neurogenic claudication Status: Acute (3) Lumbar foraminal stenosis Code(s): M99.83 - Other biomechanical lesions of lumbar region Status: Acute (4) L4 vertebral fracture Code(s): S32.049A - Unspecified fracture of fourth lumbar vertebra, initial encounter for closed fracture Status: Acute Qualifiers: Encounter type: initial encounter Fracture type: closed Fracture morphology: unspecified fracture morphology Qualified Code(s): S32.049A - Unspecified fracture of fourth lumbar vertebra, initial encounter for closed fracture (5) Left leg weakness Code(s): R29.898 - Other symptoms and signs involving the musculoskeletal system Status: Acute (6) Intractable back pain Code(s): M54.9 - Dorsalgia, unspecified Status: Acute (7) Lumbar disc herniation with radiculopathy Code(s): M51.16 - Intervertebral disc disorders with radiculopathy, lumbar region Status: Acute - Plan A: 57yoF with recent lumbar fusion L4/L5 and L5/S1, underwent L3/4 discectomy ( 10/26Malathi). Pt has weakness with left knee extension in particular 1/5 and left EHL 4/5. P: Has been approved by [facility] for admission pending resolution of vomiting/bowel movements, likely tomorrow. D/w with primary medicine as well. Mobilize and follow-up with Dr. Servin's office per his schedule. Continue PT for strengthening. <Julian Richardson - Last Filed: 10/29/17 13:12> - Attending Attestation The exam, history, and the medical decision-making described in the above note were completed with the assistance of the mid-level provider. I reviewed and agree with the findings presented. I attest that I had a [id number] encounter with the patient on the same day, and personally performed and documented my assessment and findings in the medical record. Patient and relate that her back pain and left sciatica significantly improved postoperative. Fleets enema for constipation. Transfer to rehab tomorrow. Lumbar incision site mahamed out in 10 days. <Adam Servin - Last Filed: 10/29/17 18:27>
[2017-10-30] MEDS: Methadone 10 MG Tablet PO PRN (03:16)
[2017-10-30] MEDS: Sod Chloride 0.9% Inj 1,000 ML IV.CONT SCH ×3 (05:18→21:33)
[2017-10-30] MEDS: Levothyroxine 75 MCG Tablet PO SCH (07:23)
[2017-10-30] MEDS: Levothyroxine 100 MCG Tablet PO SCH (07:24)
[2017-10-30] MEDS: Lactobacillus Acidophilus/L. Spores Tablet PO SCH (08:31)
[2017-10-30] MEDS: Lisinopril 20 MG Tablet PO SCH (08:32)
[2017-10-30] MEDS: Anastrozole 1 MG Tablet PO SCH (08:32)
[2017-10-30] MEDS: buPROPion 150 MG 12 HR Tablet PO SCH ×2 (08:32→21:31)
[2017-10-30] MEDS: Duloxetine 60 MG DR Capsule PO SCH (08:32)
[2017-10-30] MEDS: dilTIAZem CD 180 MG Capsule PO SCH (08:32)
[2017-10-30] MEDS: Pregabalin 75 MG Capsule PO SCH ×2 (08:33→21:31)
[2017-10-30] MEDS: Furosemide 20 MG Tablet PO SCH (08:33)
[2017-10-30] MEDS: Hydroxychloroquine 200 MG Tablet PO SCH ×2 (08:33→21:32)
[2017-10-30] MEDS: Methadone 10 MG Tablet PO SCH ×2 (08:33→21:31)
[2017-10-30] MEDS: Pantoprazole Inj 40 MG Vial IV.PUSH SCH (09:52)
[2017-10-30] MEDS ORDERED: Sod Phosphate/Sod Biphosphate (Adult) Enema 133 ML Bottle RECTAL ONE (13:00)
--- NOTE | 2017-10-30 13:00 | P.PNNS ---
Subjective Interval history: Pt awake and alert. Continues to have nausea and some episodes of vomiting. She states the back and leg feels good. She states she normally takes her arthritis medication in the afternoon and is getting them with other medications and requested them to be changed. Physical Exam Vital signs: Vital Signs 10/29/17 16:00 10/29/17 20:00 10/30/17 00:00 Temperature 98.7 F 98.5 F 98.2 F Pulse Rate 84 83 71 Respiratory Rate Blood Pressure 94/58 L 103/56 L 130/58 L Pulse Oximetry 91 L 92 L 93 L 10/30/17 00:30 10/30/17 04:00 10/30/17 08:00 Temperature 98.6 F 98.1 F Pulse Rate 82 79 Respiratory Rate Blood Pressure 127/59 L 120/60 Pulse Oximetry 94 L 96 Intake & Output 10/29/17 10/30/17 10/30/17 18:59 06:59 18:59 Intake Total 1000 / 1000 Balance 1000 / 1000 Intake: IV 1000 / 1000 NS Inj 1,000 ML @ 75 mls/hr IV. 1000 / 1000 CONT .[id number] [facility] Rx#:[id number] Other: Date of Last Bowel Movement 10/29/17 - Constitutional mild distress (from n/v.) - Routine HEENT Exam Head: Present: normocephalic, atraumatic Eye: Present: PERRL - Routine Respiratory Exam Present: CTA bilaterally. Absent: respiratory distress, rhonchi, wheezes - Routine Cardiovascular Exam Present: RRR, S1, S2. Absent: murmur - Routine Abdominal Exam Present: soft, tenderness (mild soreness from vomiting.). Absent: normoactive bowel sounds (diminished.), distended, guarding, firm, rigid - Routine Skin Exam Absent: cyanosis, erythema - Routine Neurological Exam Present: alert, motor deficit (Left EHL strength improving 3/5. Left knee extension very weak 1/5.), moving all extremities (with weakness as documented.) . Absent: altered mental status - Routine Psychiatric Exam Present: normal affect, cooperative. Absent: anxious, agitated Assessment and Plan - Assessment (1) Degenerative disc disease, lumbar Code(s): M51.36 - Other intervertebral disc degeneration, lumbar region Status : Acute (2) Lumbar spinal stenosis Code(s): M48.061 - Spinal stenosis, lumbar region without neurogenic claudication Status: Acute (3) Lumbar foraminal stenosis Code(s): M99.83 - Other biomechanical lesions of lumbar region Status: Acute (4) L4 vertebral fracture Code(s): S32.049A - Unspecified fracture of fourth lumbar vertebra, initial encounter for closed fracture Status: Acute Qualifiers: Encounter type: initial encounter Fracture type: closed Fracture morphology: unspecified fracture morphology Qualified Code(s): S32.049A - Unspecified fracture of fourth lumbar vertebra, initial encounter for closed fracture (5) Left leg weakness Code(s): R29.898 - Other symptoms and signs involving the musculoskeletal system Status: Acute (6) Intractable back pain Code(s): M54.9 - Dorsalgia, unspecified Status: Acute (7) Lumbar disc herniation with radiculopathy Code(s): M51.16 - Intervertebral disc disorders with radiculopathy, lumbar region Status: Acute - Plan A: 57yoF with recent lumbar fusion L4/L5 and L5/S1, underwent L3/4 discectomy ( 10/26, Malathi). Pt has weakness with left knee extension in particular / and left EHL 4/5. P: Has been approved by [facility] for admission D/w with primary medicine as well. Continue PT for strengthening.
--- NOTE | 2017-10-30 15:08 | P.PNIM ---
Subjective Interval history: Follow up: N/V and Lumbar disc herniation with radiculopathy patient reports she still has some N/V but is not as bad as it had been yesterday or the day before Physical Exam Vital signs: Vital Signs 10/29/17 16:00 10/29/17 20:00 10/30/17 00:00 Temperature 98.7 F 98.5 F 98.2 F Pulse Rate 84 83 71 Respiratory Rate 18 17 17 Blood Pressure 94/58 L 103/56 L 130/58 L Pulse Oximetry 91 L 92 L 93 L 10/30/17 00:30 10/30/17 04:00 10/30/17 08:00 Temperature 98.6 F 98.1 F Pulse Rate 82 79 Respiratory Rate 17 18 Blood Pressure 127/59 L 120/60 Pulse Oximetry 94 L 96 10/30/17 12:00 Temperature 99.1 F Pulse Rate 81 Respiratory Rate 18 Blood Pressure 133/67 Pulse Oximetry 94 L Intake & Output 10/29/17 10/30/17 10/30/17 18:59 06:59 18:59 Intake Total 1000 / 1000 Balance 1000 / 1000 Intake: IV 1000 / 1000 NS Inj 1,000 ML @ 75 mls/hr IV. 1000 / 1000 CONT .[id number] [facility] Rx#:[id number] Other: Date of Last Bowel Movement 10/29/17 Narrative: GENERAL: This is a well-nourished, well-developed patient, in no apparent distress. CARDIOVASCULAR: Regular rate and rhythm RESPIRATORY: Clear to auscultation. Breath sounds equal bilaterally. GASTROINTESTINAL: Abdomen soft, non-tender, distended. Normoactive bowel sounds MUSCULOSKELETAL: Extremities without clubbing, cyanosis, or edema. NEURO: Alert & Oriented x4 to person, place, time, situation. Moves all ext x4 Results - Labs CBC & Chem 7: 10/29/17 08:54 10/29/17 08:54 Assessment and Plan - Assessment (1) Lumbar disc herniation with radiculopathy Code(s): M51.16 - Intervertebral disc disorders with radiculopathy, lumbar region Status: Acute Plan: This is a 57-year-old female with a history of hypertension, hyperlipidemia, chronic low back pain, RA, [place] esophagus, Right breast cancer, Chronic Kidney disease, Colon polyps, Degenerative cervical disc, Diverticulosis, GERD, Hypertension, Hypothyroidism s/p thyroidectomy. Patient now S/P 10/26/17 Left L3-4 hemilaminotomy with microdiscectomy; microsurgical technique with Adam Servin MD. We have been consulted to assist with post-operative medical comanagement. Lumbar disc herniation with radiculopathy Patient now S/P 10/26/17 Left L3-4 hemilaminotomy with microdiscectomy; microsurgical technique with Adam Servin MD. We have been consulted to assist with post-operative medical comanagement. Post-op pain management per Neurosurgery Possible Ileus Patient was planning to go to rehab today but had episode of vomiting x 1 and now admits to no BM x 4 days KUB ordered - 10/28 Nonspecific bowel gas pattern without dilatation to suggest obstruction or ileus. Patient has been given lactulose and dul supp given fleets enema and relistor x 1 10/29 NPO IVF N/V DC zofran, start Reglan 10/30 some improvement today with reglan continue NPO with IVF will increase fluid rate to 125ml/H ? related to Dilaudid will defer pain management to Neurosurgery Possible UTI Received call from Julian Richardson Neurosurgery [employer] PROFESSIONAL reported that pre-op urine had WBCs, nitrates and bacteria present request that I start oral abx started Bactrim DS BID, Bactrim DC'd ?contributing to N/V Reviewed outpatient C&S with Julian LU, outpatient culture revealed Klebsiella pneumonia sensitive to ceftriaxone repeat UA C&S ordered and still pending Depression/anxiety continue home Cymbalta depression/anxiety likely contributing to pain perception Right breast cancer patient follows with Dr. Joyce outpatient invasive moderately differentiated carcinoma s/p lumpectomy with sentinel lymph node biopsy and intraoperative radiation 05/24/2017, with Dr. Chavez Continue anastrozole Hypertension Continue home Lisinopril 40 mg daily and diltiazem 180 mg daily Hypothyroidism s/p thyroidectomy Patient follows outpatient with Dr. Mcduffie continue home levothyroxine 175 mcg daily GERD [place] Esophagitis patient follows outpatient with Dr. Rodrigez Continue patient's home Prilosec 20 mg BID Rheumatoid arthritis Continue home Leflunomide 20 mg daily, hydroxychloroquine DVT prophylaxis with SCDs The exam, history, and the medical decision-making described in the above note were completed with the assistance of the mid-level provider. I reviewed and agree with the findings presented. I attest that I had a [id number] encounter with the patient on the same day, and personally performed and documented my assessment and findings in the medical record.
[2017-10-31] MEDS: Methadone 10 MG Tablet PO PRN (04:18)
[2017-10-31 05:30] LABS: Baso # (Auto) 0.1 th/mm3 (0.0-0.2); Baso % (Auto) 0.7 % (0.0-2.0); Eos # (Auto) 0.2 th/mm3 (0.0-0.4); Eos % (Auto) 2.2 % (0.0-4.0); Hematocrit 35.9 % (35.0-46.0); Hemoglobin 11.7 gm/dL (11.6-15.3); Lymph # (Auto) 2.5 th/mm3 (1.0-4.8); Lymph % (Auto) 22.4 % (9.0-44.0); Mean Corpuscular HGB Conc 32.6 % (32.0-36.0); Mean Corpuscular Hemoglobin 30.2 pg (27.0-34.0); Mean Corpuscular Volume 92.7 fL (80.0-100.0); Mean Platelet Volume 10.6 fL (7.0-11.0); Mono # (Auto) 1.1 th/mm3 (0.0-0.9); Mono % (Auto) 9.5 % (0.0-8.0); Neut # (Auto) 7.2 th/mm3 (1.8-7.7); Neut % (Auto) 65.2 % (16.0-70.0); Platelet Count 216 th/mm3 (150-450); Red Blood Count 3.87 mil/mm3 (4.00-5.30); Red Cell Distribution Width 16.1 % (11.6-17.2); White Blood Count 11.1 th/mm3 (4.0-11.0)
[2017-10-31 05:57] LABS: Calcium 7.5 mg/dL (8.5-10.1); Carbon Dioxide 27.4 meq/L (21.0-32.0); Potassium 3.6 meq/L (3.5-5.1)
[2017-10-31] MEDS: Levothyroxine 75 MCG Tablet PO SCH (06:04)
[2017-10-31] MEDS: Levothyroxine 100 MCG Tablet PO SCH (06:04)
[2017-10-31] MEDS: Sod Chloride 0.9% Inj 1,000 ML IV.CONT SCH ×3 (06:05→21:33)
[2017-10-31] MEDS: Hydroxychloroquine 200 MG Tablet PO SCH ×2 (09:21→21:00)
[2017-10-31] MEDS: Lisinopril 20 MG Tablet PO SCH (09:21)
[2017-10-31] MEDS: Furosemide 20 MG Tablet PO SCH (09:21)
[2017-10-31] MEDS: buPROPion 150 MG 12 HR Tablet PO SCH ×2 (09:21→21:33)
[2017-10-31] MEDS: Methadone 10 MG Tablet PO SCH ×2 (09:21→21:33)
[2017-10-31] MEDS: Pantoprazole Inj 40 MG Vial IV.PUSH SCH (09:21)
[2017-10-31] MEDS: Pregabalin 75 MG Capsule PO SCH ×2 (09:21→21:33)
[2017-10-31] MEDS: Lactobacillus Acidophilus/L. Spores Tablet PO SCH (09:22)
[2017-10-31] MEDS: dilTIAZem CD 180 MG Capsule PO SCH (09:22)
--- NOTE | 2017-10-31 11:36 | P.PNIM ---
Subjective Interval history: pt in chair. ready to try liquids. no vomiting. asking about Camarena. Physical Exam Vital signs: Vital Signs 10/30/17 12:00 10/30/17 16:00 10/30/17 20:27 Temperature 99.1 F 98.8 F 98.8 F Pulse Rate 81 80 84 Respiratory Rate 18 18 18 Blood Pressure 133/67 156/68 H 121/71 Pulse Oximetry 94 L 91 L 96 10/31/17 00:11 10/31/17 00:16 10/31/17 08:00 Temperature 98.5 F 98.1 F Pulse Rate 75 85 Respiratory Rate 18 18 18 Blood Pressure 118/59 L 141/69 H Pulse Oximetry 92 L 93 L Intake & Output 10/30/17 10/31/17 10/31/17 18:59 06:59 18:59 Intake Total 1000 / 1000 100 / 100 Balance 1000 / 1000 100 / 100 Weight 84.8 kg Intake: IV 1000 / 1000 100 / 100 NS Inj 1,000 ML @ 125 mls/hr IV 1000 / 1000 .CONT .Q8H [facility] Rx#:[id number] Rocephin Inj 1,000 MG In NS Inj 100 / 100 100 ML @ 200 mls/hr IV.SIG Q24H [facility] Rx#:[id number] Oral 0 / 0 Other: # Voids 1 Date of Last Bowel Movement 10/29/17 10/29/17 # Bowel Movements 0 heart reg lung cta abd s/nt ext no edema Results - Labs CBC & Chem 7: 10/31/17 04:47 10/31/17 04:47 Laboratory Results - last 24 hr 10/31/17 10/31/17 04:47 04:47 WBC 11.1 H RBC 3.87 L Hgb 11.7 D Hct 35.9 MCV 92.7 MCH 30.2 MCHC 32.6 RDW 16.1 Plt Count 216 MPV 10.6 Neut % (Auto) 65.2 Lymph % (Auto) 22.4 [place] % (Auto) 9.5 H Eos % (Auto) 2.2 Baso % (Auto) 0.7 Neut # (Auto) 7.2 Lymph # (Auto) 2.5 [place] # (Auto) 1.1 H Eos # (Auto) 0.2 Baso # (Auto) 0.1 WBC Differential . Differential Comment Auto diff final Sodium 141 Potassium 3.6 Chloride 106 D Carbon Dioxide 27.4 Anion Gap 8 BUN 24 H Creatinine 1.09 H Estimated GFR 52 L Random Glucose 77 Calcium 7.5 L D Assessment and Plan - Assessment (1) Lumbar disc herniation with radiculopathy Code(s): M51.16 - Intervertebral disc disorders with radiculopathy, lumbar region Status: Acute Plan: This is a 57-year-old female with a history of hypertension, hyperlipidemia, chronic low back pain, RA, [place] esophagus, Right breast cancer, Chronic Kidney disease, Colon polyps, Degenerative cervical disc, Diverticulosis, GERD, Hypertension, Hypothyroidism s/p thyroidectomy. Patient now S/P 10/26/17 Left L3-4 hemilaminotomy with microdiscectomy; microsurgical technique with Adam Servin MD. We have been consulted to assist with post-operative medical comanagement. Lumbar disc herniation with radiculopathy Patient now S/P 10/26/17 Left L3-4 hemilaminotomy with microdiscectomy; microsurgical technique with Adam Servin MD. We have been consulted to assist with post-operative medical comanagement. Post-op pain management per Neurosurgery Ileus n/v dc to rehab held due to ileus and n/v ...now admits to no BM x 4 days KUB ordered - 10/28 Nonspecific bowel gas pattern without dilatation to suggest obstruction or ileus. Patient has been given lactulose and dul supp given fleets enema and relistor x 1 10/29 ivf advance to liquid then soft diet. cont reglan if tolerating diet then dc to [facility] later today vs in AM UTI Received call from Julian Richardson Neurosurgery [employer] LEGAL ASSISTANT reported that pre-op urine had WBCs, nitrates and bacteria present request that I start oral abx started Bactrim DS BID, Bactrim DC'd ?contributing to N/V Reviewed outpatient C&S with Julian LU, outpatient culture revealed Klebsiella pneumonia sensitive to ceftriaxone repeat UA C&S ordered and still pending Depression/anxiety continue home Cymbalta depression/anxiety likely contributing to pain perception Right breast cancer patient follows with Dr. Joyce outpatient invasive moderately differentiated carcinoma s/p lumpectomy with sentinel lymph node biopsy and intraoperative radiation 05/24/2017, with Dr. Chavez Continue anastrozole Hypertension Continue home Lisinopril 40 mg daily and diltiazem 180 mg daily Hypothyroidism s/p thyroidectomy Patient follows outpatient with Dr. Mcduffie continue home levothyroxine 175 mcg daily GERD [place] Esophagitis patient follows outpatient with Dr. Rodrigez Continue patient's home Prilosec 20 mg BID Rheumatoid arthritis Continue home Leflunomide 20 mg daily, hydroxychloroquine DVT prophylaxis with SCDs
[2017-10-31] MEDS ORDERED: Anastrozole 1 MG Tablet PO SCH (14:00)
[2017-10-31] MEDS ORDERED: Duloxetine 60 MG DR Capsule PO SCH (14:00)
--- NOTE | 2017-10-31 17:10 | P.PNNS ---
Subjective Interval history: Pt awake and alert. States feeling much better. Was able to eat a small amount today. No radicular pain in LEs. Physical Exam Vital signs: Vital Signs 10/30/17 20:27 10/31/17 00:11 10/31/17 00:16 Temperature 98.8 F 98.5 F Pulse Rate 84 75 Respiratory Rate 18 18 18 Blood Pressure 121/71 118/59 L Pulse Oximetry 96 92 L 10/31/17 08:00 10/31/17 12:00 10/31/17 16:00 Temperature 98.1 F 98.2 F 98.0 F Pulse Rate 85 79 77 Respiratory Rate 18 Blood Pressure 141/69 H 130/63 111/55 L Pulse Oximetry 93 L 91 L 93 L Intake & Output 10/30/17 10/31/17 10/31/17 18:59 06:59 18:59 Intake Total 1000 / 1000 1100 / 1100 Balance 1000 / 1000 1100 / 1100 Weight 84.8 kg Intake: IV 1000 / 1000 1100 / 1100 NS Inj 1,000 ML @ 125 mls/hr IV 1000 / 1000 1000 / 1000 .CONT .Q8H [facility] Rx#:[id number] Rocephin Inj 1,000 MG In NS Inj 100 / 100 100 ML @ 200 mls/hr IV.SIG Q24H [facility] Rx#:[id number] Oral 0 / 0 Other: # Voids 1 Date of Last Bowel Movement 10/29/17 10/29/17 # Bowel Movements 0 - Constitutional no acute distress, cooperative - Routine HEENT Exam Head: Present: normocephalic Eye: Present: PERRL. Absent: conjunctival icterus - Routine Neck Exam Present: supple - Routine Respiratory Exam Present: CTA bilaterally. Absent: respiratory distress, rhonchi, wheezes - Routine Cardiovascular Exam Present: RRR, S1, S2. Absent: murmur - Routine Abdominal Exam Present: soft. Absent: normoactive bowel sounds (diminished.), distended, firm - Routine Extremities Exam Absent: cyanosis - Routine Skin Exam Absent: cyanosis, erythema - Routine Neurological Exam Present: alert, oriented X3, motor deficit (Pt cannot extend her left knee 1/5. Left EHL weakness 3/5.), moving all extremities, normal speech - Routine Psychiatric Exam Present: normal affect, cooperative. Absent: anxious, agitated Assessment and Plan - Assessment (1) Degenerative disc disease, lumbar Code(s): M51.36 - Other intervertebral disc degeneration, lumbar region Status : Acute (2) Lumbar spinal stenosis Code(s): M48.061 - Spinal stenosis, lumbar region without neurogenic claudication Status: Acute (3) Lumbar foraminal stenosis Code(s): M99.83 - Other biomechanical lesions of lumbar region Status: Acute (4) L4 vertebral fracture Code(s): S32.049A - Unspecified fracture of fourth lumbar vertebra, initial encounter for closed fracture Status: Acute Qualifiers: Encounter type: initial encounter Fracture type: closed Fracture morphology: unspecified fracture morphology Qualified Code(s): S32.049A - Unspecified fracture of fourth lumbar vertebra, initial encounter for closed fracture (5) Left leg weakness Code(s): R29.898 - Other symptoms and signs involving the musculoskeletal system Status: Acute (6) Intractable back pain Code(s): M54.9 - Dorsalgia, unspecified Status: Acute (7) Lumbar disc herniation with radiculopathy Code(s): M51.16 - Intervertebral disc disorders with radiculopathy, lumbar region Status: Acute - Plan A: 57yoF with recent lumbar fusion L4/L5 and L5/S1, underwent L3/4 discectomy ( 10/26, Malathi). Pt has weakness with left knee extension in particular 02/16 and left EHL /. P: Has been approved by [facility] for admission. [place] in am. Continue PT for strengthening.
[2017-11-01] MEDS: Methadone 10 MG Tablet PO PRN (05:05)
[2017-11-01] MEDS: Levothyroxine 100 MCG Tablet PO SCH (05:06)
[2017-11-01] MEDS: Levothyroxine 75 MCG Tablet PO SCH (05:06)
[2017-11-01] MEDS: Sod Chloride 0.9% Inj 1,000 ML IV.CONT SCH (06:34)
[2017-11-01] MEDS: Hydroxychloroquine 200 MG Tablet PO SCH (08:40)
[2017-11-01] MEDS: dilTIAZem CD 180 MG Capsule PO SCH (08:40)
[2017-11-01] MEDS: buPROPion 150 MG 12 HR Tablet PO SCH (08:40)
[2017-11-01] MEDS: Methadone 10 MG Tablet PO SCH (08:40)
[2017-11-01] MEDS: Furosemide 20 MG Tablet PO SCH (08:40)
[2017-11-01] MEDS: Lisinopril 20 MG Tablet PO SCH (08:40)
[2017-11-01] MEDS: Lactobacillus Acidophilus/L. Spores Tablet PO SCH (08:41)
[2017-11-01] MEDS: Pregabalin 75 MG Capsule PO SCH (08:41)
[2017-11-01] MEDS: Pantoprazole Inj 40 MG Vial IV.PUSH SCH (09:37)
--- NOTE | 2017-11-01 10:09 | P.PNIM ---
Subjective Interval history: feels great. no n/v mild foul odor to urine. but better. Physical Exam Vital signs: Vital Signs 10/31/17 12:00 10/31/17 16:00 10/31/17 20:00 Temperature 98.2 F 98.0 F 98.6 F Pulse Rate 79 77 81 Respiratory Rate 18 18 17 Blood Pressure 130/63 111/55 L 121/55 L Pulse Oximetry 91 L 93 L 95 11/01/17 00:00 11/01/17 07:37 Temperature 98.8 F 98.0 F Pulse Rate 76 73 Respiratory Rate 18 17 Blood Pressure 124/57 L 171/75 H Pulse Oximetry 94 L 92 L Intake & Output 10/31/17 11/01/17 11/01/17 18:59 06:59 18:59 Intake Total 1100 / 1100 550 / 550 Balance 1100 / 1100 550 / 550 Weight 84.9 kg Intake: IV 1100 / 1100 100 / 100 NS Inj 1,000 ML @ 125 mls/hr IV 1000 / 1000 .CONT .Q8H [facility] Rx#:[id number] Rocephin Inj 1,000 MG In NS Inj 100 / 100 100 / 100 100 ML @ 200 mls/hr IV.SIG Q24H [facility] Rx#:[id number] Oral 450 / 450 Other: # Voids 2 Date of Last Bowel Movement 10/29/17 10/31/17 10/31/17 heart reg lung cta abd s/nt ext no edema Results - Labs CBC & Chem 7: 10/31/17 04:47 10/31/17 04:47 Assessment and Plan - Assessment (1) Lumbar disc herniation with radiculopathy Code(s): M51.16 - Intervertebral disc disorders with radiculopathy, lumbar region Status: Acute Plan: This is a 57-year-old female with a history of hypertension, hyperlipidemia, chronic low back pain, RA, [place] esophagus, Right breast cancer, Chronic Kidney disease, Colon polyps, Degenerative cervical disc, Diverticulosis, GERD, Hypertension, Hypothyroidism s/p thyroidectomy. Patient now S/P 10/26/17 Left L3-4 hemilaminotomy with microdiscectomy; microsurgical technique with Adam Servin MD. We have been consulted to assist with post-operative medical comanagement. Lumbar disc herniation with radiculopathy Patient now S/P 10/26/17 Left L3-4 hemilaminotomy with microdiscectomy; microsurgical technique with Adam Servin MD. We have been consulted to assist with post-operative medical comanagement. Post-op pain management per Neurosurgery Ileus n/v dc to rehab held due to ileus and n/v ...now admits to no BM x 4 days KUB ordered - 10/28 Nonspecific bowel gas pattern without dilatation to suggest obstruction or ileus. Patient has been given lactulose and dul supp given fleets enema and relistor x 1 10/29 pt improved with reglan, ivf, and laxatives tolerating food Camarena today. UTI discussed clinic u/a cx...klebsiella pansensitive. was getting rocephin here. will write for 3 more days of cipro for Camarena and they can f/u on her sx's Depression/anxiety continue home Cymbalta depression/anxiety likely contributing to pain perception Right breast cancer patient follows with Dr. Joyce outpatient invasive moderately differentiated carcinoma s/p lumpectomy with sentinel lymph node biopsy and intraoperative radiation 05/24/2017, with Dr. Chavez Continue anastrozole Hypertension Continue home Lisinopril 40 mg daily and diltiazem 180 mg daily Hypothyroidism s/p thyroidectomy Patient follows outpatient with Dr. Mcduffie continue home levothyroxine 175 mcg daily GERD [place] Esophagitis patient follows outpatient with Dr. Rodrigez Continue patient's home Prilosec 20 mg BID Rheumatoid arthritis Continue home Leflunomide 20 mg daily, hydroxychloroquine DVT prophylaxis with SCDs
[2017-11-01] MEDS ORDERED: Ciprofloxacin 250 MG Tablet PO ONE (10:30)
--- NOTE | 2017-11-12 16:17 | P.DS ---
Date of admission: 10/26/17 15:00 Primary care physician: Juhi Cooper Attending physician on discharge: Adam Servin Brief History from admission: Pt presents for an evaluation of left leg pain and weakness. She has previously undergone a L4, L5, and S1 decompressive laminectomy with L4/L5 and L5/S1 TLIF with cage and pedicle screw fixation about 2.5 months ago. She states she has been falling and recently hit her left knee after a fall. Earlier this month she saw a sports medicine physician who obtained an x-ray of her knee and felt it was stable and recommended PT. She states she saw the therapist who would not do therapy secondary to the swelling in the knee. She had another fall this past Sunday and went to the ER and was admitted for further evaluation. A CT of the lumbar spine revealed a fracture of the superior endplate of L4. She was seen by the oncall Neurosurgeon Dr. Johnson who recommended a TLSO brace and an MRI of the lumbar spine to evaluate her leg weakness. She was not able to lay still for the MRI and she was discharged and recommended to follow up with us outpatient. She has since had an MRI of the lumbar spine which was ordered by her pcp and pt is here to review and discuss further treatment. She denies any saddle anesthesias. She denies any bowel or bladder incontinence. She has some paresthesias in the left lateral calf. DS: Diagnosis - Discharge Diagnosis (1) Degenerative disc disease, lumbar Status: Acute (2) Lumbar spinal stenosis Status: Acute (3) Lumbar foraminal stenosis Status: Acute (4) L4 vertebral fracture Status: Acute (5) Left leg weakness Status: Acute (6) Intractable back pain Status: Acute (7) Lumbar disc herniation with radiculopathy Status: Acute DS: Summary Hospital Course: Pt underwent Left L3-4 hemilaminotomy with microdiscectomy; microsurgical technique on 10/26/17 by Adam Servin M.D. Postoperatively pt was admitted for pain control and physical therapy. PT was consulted and her activity was increased. Hospitalist was consulted for assistance with her medical management. Pt received antibiotics for a preop UTI. She improved after surgery and was getting ready to discharge when she developed nausea and vomiting and was felt to be constipated or development of an ileus. She was started on IVF and antiemetics. Pt had some improvement but the nausea/ vomiting returned. Pt received multiple laxatives and then started having small BMs and then was able to have BMs. The nausea and vomiting improved and she was transferred to [facility] inpatient [facility] in stable condition. - Time Spent with Patient Total time spent providing and/or coordinating discharge services: Less than 30 minutes - Quality: VTE Deep Vein Thrombosis/Pulmonary Embolism Present on Admission: No Results Procedures completed during hospitalization: Left L3-4 hemilaminotomy with microdiscectomy; microsurgical technique by Adam Servin MD on 10/26/17. - Impressions ITS Impressions Lumbar Spine X-Ray 10/26/17 00:00 CONCLUSION: Pointer is at L3/L4. Abdomen X-Ray 10/28/17 00:00 CONCLUSION: Nonspecific bowel gas pattern without dilatation to suggest obstruction or ileus. Discharge Plan - Discharge Disposition Patient Disposition: [facility] Inpatient - Discharge Order Discharge Orders: Discharge Order (Routine); Ordered 10/29/17 Ordered By: Julian Richardson Neurosurgery Clear for Discharge (Routine); Ordered 11/01/17 Ordered By: Julian Richardson - Physicians Team Primary Care Provider: Juhi Cooper Attending Provider: Adam Servin Other Providers: Ceferino Diaz DO - Rxs /Orders / Referrals /Forms Prescriptions: New acidophilus-sporogenes [Acidophilus Ex Str (L. sporog)] 35 million- 25 million cell Tablet 1 tab PO DAILY RF: 0 albuterol sulfate 2.5 mg /3 mL (0.083 %) Solution For Nebulization 2.5 mg NEB Q4HR NEB PRN (Reason: Wheezing) RF: 0 alum-mag hydroxide-simeth [Mag-Al Plus] 200-200-20 mg/5 mL Suspension 30 ml PO Q6H PRN (Reason: Dyspepsia) RF: 0 bisacodyl [Bisac-Evac] 10 mg Suppository 10 mg CA DAILY PRN (Reason: Severe Consitipation) RF: 0 clonidine HCl [Catapres] 0.1 mg Tablet 0.1 mg PO Q6H PRN (Reason: Sys Bp Greater Than 170 Mmhg) RF: 0 cyclobenzaprine 10 mg Tablet 10 mg PO Q8H PRN (Reason: Muscle Spasm) RF: 0 docusate sodium [DOK] 100 mg Capsule 100 mg PO BID RF: 0 lactulose 20 gram/30 mL Solution 30 ml PO DAILY PRN (Reason: Severe Consitipation) RF: 0 levothyroxine [Synthroid] 100 mcg Tablet 100 mcg PO DAILY@0600 RF: 0 magnesium hydroxide [Milk of Magnesia] 400 mg/5 mL Suspension 30 ml PO Q12H PRN (Reason: Mild Constipation) RF: 0 methadone 10 mg Tablet 10 mg PO Q12HR RF: 0 methadone 10 mg Tablet 10 mg PO Q6H PRN (Reason: Pain Scale 4 To 6 Moderate) RF: 0 methylprednisolone 4 mg Tablet 4 mg PO Q24H RF: 0 metoclopramide HCl 5 mg/mL Solution 5 mg IV.PUSH Q8HR RF: 0 metoprolol tartrate 25 mg Tablet 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 RF: 0 pantoprazole [Protonix] 40 mg Recon Soln 40 mg IV.PUSH Q24H RF: 0 pregabalin [Lyrica] 75 mg Capsule 75 mg PO BID RF: 0 promethazine 25 mg/mL Solution 25 mg IM Q4H PRN (Reason: Nausea Or Vomiting) RF: 0 sennosides [Senna Lax] 8.6 mg Tablet 17.2 mg PO Q12H PRN (Reason: Moderate Constipation) RF: 0 zolpidem 5 mg Tablet 5 mg PO HS PRN (Reason: Insomnia) RF: 0 Continue anastrozole 1 mg Tablet 1 mg PO DAILY azelastine 137 mcg (0.1 %) Aerosol,Happy 2 spray INTRANASAL Q12H biotin 2,500 mcg Capsule 2,500 mcg PO DAILY bupropion HCl 300 mg Tablet Extended Release 24 Hr 300 mg PO QAM cholecalciferol (vitamin D3) 5,000 unit Capsule 5,000 unit PO DAILY diltiazem HCl [DILT-XR] 180 mg Capsule,Ext.Rel 24h Degradable 180 mg PO DAILY duloxetine 60 mg Capsule,Delayed Release(Dr/Ec) 60 mg PO DAILY fluticasone 50 mcg/actuation Happy,Suspension 1 spray INTRANASAL DAILY furosemide 20 mg Tablet 20 mg PO DAILY hydroxychloroquine 200 mg Tablet 200 mg PO BID leflunomide 20 mg Tablet 20 mg PO DAILY levothyroxine 175 mcg Tablet 175 mcg PO DAILY lisinopril 40 mg Tablet 40 mg PO DAILY [id number]-lta-czio-FA-vit K [Adults Multivitamin] 18 mg iron-400 mcg-25 mcg Tablet 1 tab PO DAILY pregabalin [Lyrica] 25 mg Capsule 25 mg PO BID simvastatin 20 mg Tablet 20 mg PO QPM Discontinued acidophilus-pectin, citrus [Acidophilus Probiotic] 100 million cell-10 mg Capsule 1 tab PO DIRECTED clonidine HCl 0.1 mg Tablet 0.1 mg PO PRN methadone 10 mg Tablet 10 mg PO Q4-6H PRN (Reason: Pain) methylprednisolone 4 mg Tablet 4 mg PO DAILY naproxen sodium [Aleve] 220 mg Capsule 220 mg PO BID omeprazole magnesium [Prilosec OTC] 20 mg Tablet,Delayed Release (Dr/Ec) 20 mg PO BID Referrals: Juhi Cooper MD [Primary Care Provider] - See Instructions - Discharge Instructions Patient Printed Instructions: Laminectomy (DC)
== END 2017-11-01 10:30 ==
LOC: HSDI 10:40 → HOR 10:40 → N06 16:45
PROVIDERS: ADMIT Neurological Surgery; ATTEND Neurological Surgery

== ENCOUNTER 2017-11-22 11:06 | Inpatient (IN) ==
[2017-11-22] MEDS ORDERED: Aspirin 325 MG Tablet PO ONE (11:46)
[2017-11-22 12:21] LABS: Baso # (Auto) 0.1 th/mm3 (0.0-0.2); Baso % (Auto) 0.9 % (0.0-2.0); Eos # (Auto) 0.2 th/mm3 (0.0-0.4); Eos % (Auto) 2.5 % (0.0-4.0); Hematocrit 39.7 % (35.0-46.0); Lymph # (Auto) 2.6 th/mm3 (1.0-4.8); Lymph % (Auto) 28.3 % (9.0-44.0); Mean Corpuscular HGB Conc 32.6 % (32.0-36.0); Mean Corpuscular Hemoglobin 30.5 pg (27.0-34.0); Mean Corpuscular Volume 93.3 fL (80.0-100.0); Mono # (Auto) 0.8 th/mm3 (0.0-0.9); Mono % (Auto) 9.2 % (0.0-8.0); Neut # (Auto) 5.4 th/mm3 (1.8-7.7); Neut % (Auto) 59.1 % (16.0-70.0); Platelet Count 232 th/mm3 (150-450); Red Blood Count 4.26 mil/mm3 (4.00-5.30); Red Cell Distribution Width 16.6 % (11.6-17.2); White Blood Count 9.1 th/mm3 (4.0-11.0)
--- NOTE | 2017-11-22 12:21 | XR ---
EXAM DATE: 11/22/2017 11:46 AM EDT AGE/SEX: 57 years / Female INDICATIONS: Chest pain. CLINICAL DATA: This is the patient's initial encounter. Patient reports that signs and symptoms have been present for 2 days and indicates a pain score of 7/10. MEDICAL/SURGICAL HISTORY: Carcinoma, breast. Gastroesophageal reflux disease. Hypertension. C holecystectomy. section. Fusion, lumbar. COMPARISON: [facility], CHEST 1V SINGLE AP, 11/05/2017. . FINDINGS: A single AP view of the chest demonstrates the lungs to be symmetrically aerated without evidence of mass, infiltrate or effusion. The cardiomediastinal contours are unremarkable. Osseous structures a re intact. CONCLUSION: No acute cardiopulmonary disease Electronically signed by: Julian Lorenzo MD 11/22/2017 12:20 PM EDT
[2017-11-22 12:44] LABS: Albumin 3.4 g/dL (3.4-5.0); Anion Gap 9 meq/L (5-15); Aspartate Aminotransferase 18 U/L (15-37); Blood Urea Nitrogen 11 mg/dL (7-18); Carbon Dioxide 26.8 meq/L (21.0-32.0); Chloride 106 meq/L (98-107); Glomerular Filtration Rate 67 mL/min (>89); Glucose,Random 101 mg/dL (74-106); Lipase 44 U/L (73-393); Potassium 3.3 meq/L (3.5-5.1); Sodium 142 meq/L (136-145)
[2017-11-22 12:45] LABS: Alanine Aminotransferase 20 U/L (10-53)
[2017-11-22 12:49] LABS: Alkaline Phosphatase 101 U/L (45-117); Total Protein 6.5 g/dL (6.4-8.2); Troponin I 0.08 ng/mL (0.02-0.05)
--- NOTE | 2017-11-22 13:16 | ED ---
HPI General Chief Complaint: Chest Pain Stated Complaint: Chest Pain Time Seen by Provider: 11/22/17 11:31 Source: patient and family Mode of arrival: ambulatory Limitations: no limitations History of Present Illness HPI narrative: 57 yo F arrives with multiple complaints. Her past medical history includes hypertension, hyperlipidemia, breast cancer, rheumatoid arthritis and hypothyroidism as well as chronic back pain. She reports vomiting multiple times today. She also reports chest pain and back pain. Onset occurred at rest. She denies shortness of breath in the ED. No fever or cough. No radiation of chest pain. Patient has been unable to tolerate oral medications except for methadone. Duration of chest pain has been 4 hours. Related Data Previous Rx's Medication Instructions Recorded anastrozole [Arimidex] 1 mg PO DAILY 30 Days #30 tab 11/16/17 bupropion HCl 300 mg PO QAM 30 Days #30 tab 11/16/17 cholecalciferol (vitamin D3) 5,000 unit PO DAILY 30 Days #30 cap 11/16/17 cyclobenzaprine 10 mg PO Q8H PRN 30 Days tab 11/16/17 duloxetine 60 mg PO DAILY 30 Days #30 cap 11/16/17 fluticasone 1 spray INTRANASAL DAILY 30 Days g 11/16/17 furosemide 20 mg PO DAILY 30 Days #30 tab 11/16/17 hydroxychloroquine 200 mg PO BID 30 Days #60 tab 11/16/17 leflunomide [Arava] 20 mg PO DAILY 30 Days #30 tab 11/16/17 levothyroxine [Synthroid] 175 mcg PO DAILY@0600 30 Days tab 11/16/17 lisinopril 40 mg PO DAILY 30 Days #60 tab 11/16/17 methadone 10 mg PO Q6H PRN #28 tab 11/16/17 methylprednisolone 4 mg PO Q24H 30 Days #30 tab 11/16/17 unpwfrpe-qgtt-IJ-calcium-mins 1 tab PO DAILY 30 Days #30 tab 11/16/17 [Thera M Plus (ferrous fumarat)] nifedipine 60 mg PO DAILY 30 Days #30 tab 11/16/17 pantoprazole 40 mg PO DAILY 30 Days #30 tab 11/16/17 pravastatin 40 mg PO HS 30 Days #30 tab 11/16/17 pregabalin [Lyrica] 75 mg PO BID #60 cap 11/16/17 sennosides-docusate sodium [Senna 1 tab PO BID #14 tab 11/16/17 Plus] sucralfate 1 gm PO ACHS 30 Days tab 11/16/17 zolpidem 5 mg PO HS PRN #30 tab 11/16/17 ondansetron [Zofran ODT] 4 mg PO Q8H #20 tab 11/20/17 Allergies Allergy/AdvReac Type Severity Reaction Status Date / Time adhesive Allergy Severe Generalized Verified 11/22/17 12:19 Rash clarithromycin Allergy Severe Rash Verified 11/22/17 12:19 codeine Allergy Severe ITCHING Verified 11/22/17 12:19 latex Allergy Severe RASH Verified 11/22/17 12:19 morphine Allergy Severe SOB, RASH Verified 11/22/17 12:19 SWELLING methotrexate Allergy Intermediate ELEVATED Verified 11/22/17 12:19 LIVER ENZYMES. Review of Systems ROS: all other systems reviewed are negative PMFSH Social History Social History Substance History: No History of Abuse Second Hand Smoke Exposure: No Smoking Status: Current every day smoker Tobacco Type: Cigarettes How Often Do You Have a Drink Containing Alcohol: 2 to 3 times a week [facility] within the Last 8 Weeks: No Recent Out of Country Travel within the Last 8 Weeks: No Immunization History Tetanus Immunization: <5 Years Exam Narrative Exam Narrative: GENERAL: 57-year-old female well-nourished well-developed mild distress SKIN: Focused skin assessment warm/dry. HEAD: Atraumatic. Normocephalic. EYES: Pupils equal and round. No scleral icterus. No injection or drainage. ENT: No nasal bleeding or discharge. Mucous membranes pink and moist. NECK: Trachea midline. No JVD. CARDIOVASCULAR: Regular rate and rhythm. No murmur appreciated. RESPIRATORY: No accessory muscle use. Clear to auscultation. Breath sounds equal bilaterally. GASTROINTESTINAL: Abdomen soft, non-tender, nondistended. Hepatic and splenic margins not palpable. MUSCULOSKELETAL: No obvious deformities. No clubbing. No cyanosis. No edema. NEUROLOGICAL: Awake and alert. No obvious cranial nerve deficits. Motor grossly within normal limits. Normal speech. PSYCHIATRIC: Appropriate mood and affect; insight and judgment normal. Course Initial Documented Vital Signs Pulse Rate 81 11/22/17 12:22 Respiratory Rate 22 11/22/17 12:22 Blood Pressure 145/81 H 11/22/17 12:22 Pulse Oximetry 100 10/11/18 12:22 Last Documented Vital Signs Pulse Rate 81 11/22/17 12:22 Respiratory Rate 22 11/22/17 12:22 Blood Pressure 145/81 H 11/22/17 12:22 Pulse Oximetry 100 11/22/17 12:22 Critical Care Time Critical Care Time: Yes Total Critical Care Time: 35 Attestation: Aggregate critical care time was 35 minutes. Time to perform other separately billable procedures was not included in the critical care time. My time did not include minutes spent treating any other patients simultaneously or on activities that did not directly contribute to the patient's treatment. The services I provided to this patient were to treat and/or prevent clinically significant deterioration that could result in: Coronary ischemia, permanent disability I provided critical care services requiring my management, as noted below: Chart data review, documentation time, medication orders and management, vital sign assessments/reviewing monitor data, ordering and reviewing lab tests, ordering and interpreting/reviewing x-rays and diagnostic studies, care of the patient and discussion of the patient with the admitting physicians. Medical Decision Making MDM Narrative Medical decision making narrative: 49-year-old female arrives with chest pain as well as multiple other complaints including vomiting back pain abdominal pain and inability to tolerate medications. The EKG reveals ST changes in V2 V3 potentially consistent with ischemic injury we also see T wave inversions in 1 and aVL of concern. These appear new since October 13, most recent EKGs on record. Troponin is also 0.08. Heparin started as well as metoprolol and nitro. Call placed to the repairer general, Dr. Delcid, at 1:25 PM. Call placed to the [facility] group at 1:25 PM. Patient will be admitted for non- ST elevation IA. Medical Screen Exam Complete: Yes Emergency Medical Condition: Yes Differential Diagnosis Differential Diagnosis: NSTEMI, unstable angina, coronary vasospasm, PE, PTX, aortic dissection, pericarditis, myocarditis, endocarditis, PNA, esophageal disease, aneurysm, musculoskeletal etiologies, anxiety, cocaine/sympathomimetic abuse Medical Records Medical records reviewed: Yes I reviewed the patient's medical records. Lab Data Lab results reviewed: Yes I reviewed the patient's lab results. Lab results narrative: Troponin 0.08 BNP 302 Result diagrams: 11/22/17 12:01 11/22/17 12:01 Lab Results 1011/22/17 11/22/17 Range/Units 12:01 12:01 12:01 WBC 9.1 (4.0-11.0) th/mm3 RBC 4.26 (4.00-5.30) mil/mm3 Hgb 13.0 D (11.6-15.3) gm/dL Hct 39.7 (35.0-46.0) % MCV 93.3 (80.0-100.0) fL MCH 30.5 (27.0-34.0) pg MCHC 32.6 (32.0-36.0) % RDW 16.6 (11.6-17.2) % Plt Count 232 (150-450) th/mm3 MPV 10.0 (7.0-11.0) fL Neut % (Auto) 59.1 (16.0-70.0) % Lymph % (Auto) 28.3 (9.0-44.0) % [place] % (Auto) 9.2 H (0.0-8.0) % Eos % (Auto) 2.5 (0.0-4.0) % Baso % (Auto) 0.9 (0.0-2.0) % Neut # (Auto) 5.4 (1.8-7.7) th/mm3 Lymph # (Auto) 2.6 (1.0-4.8) th/mm3 [place] # (Auto) 0.8 (0.0-0.9) th/mm3 Eos # (Auto) 0.2 (0.0-0.4) th/mm3 Baso # (Auto) 0.1 (0.0-0.2) th/mm3 WBC Differential . Differential Comment Auto diff final Sodium 142 (136-145) meq/L Potassium 3.3 L (3.5-5.1) meq/L Chloride 106 (98-107) meq/L Carbon Dioxide 26.8 (21.0-32.0) meq/L Anion Gap 9 (5-15) meq/L BUN 11 (7-18) mg/dL Creatinine 0.87 (0.50-1.00) mg/dL Estimated GFR 67 L (>89) mL/min Random Glucose 101 (74-106) mg/dL Calcium 9.0 (8.5-10.1) mg/dL Total Bilirubin 0.3 (0.2-1.0) mg/dL AST 18 (15-37) U/L ALT 20 (10-53) U/L Alkaline Phosphatase 101 (45-117) U/L Troponin I 0.08 H (0.02-0.05) ng/mL B-Natriuretic Peptide 302 H (0-100) pg/mL Total Protein 6.5 D (6.4-8.2) g/dL Albumin 3.4 (3.4-5.0) g/dL Lipase 44 L (73-393) U/L Imaging Data Radiologist's impression: Chest X-Ray 11/22/17 11:46 CONCLUSION: No acute cardiopulmonary disease Discharge Plan Discharge Disposition Patient Disposition: 30 Still Patient Physicians Team ED Provider: Sanjay Lane Rxs /Orders / Referrals /Forms Prescriptions: No Action cyclobenzaprine 10 mg Tablet 10 mg PO Q8H PRN (Reason: Muscle Spasm) 30 Days RF: 0 anastrozole [Arimidex] 1 mg Tablet 1 mg PO DAILY 30 Days Qty: 30 RF: 0 pravastatin 40 mg Tablet 40 mg PO HS 30 Days Qty: 30 RF: 0 sucralfate 1 gram Tablet 1 gm PO ACHS 30 Days RF: 0 lisinopril 20 mg Tablet 40 mg PO DAILY 30 Days Qty: 60 RF: 0 sennosides-docusate sodium [Senna Plus] 8.6-50 mg Tablet 1 tab PO BID Qty: 14 RF: 0 methylprednisolone 4 mg Tablet 4 mg PO Q24H 30 Days Qty: 30 RF: 0 leflunomide [Arava] 20 mg Tablet 20 mg PO DAILY 30 Days Qty: 30 RF: 0 levothyroxine [Synthroid] 100 mcg Tablet 175 mcg PO DAILY@0600 30 Days RF: 0 nifedipine 60 mg Tablet Extended Release 24hr 60 mg PO DAILY 30 Days Qty: 30 RF: 0 pantoprazole 40 mg Tablet,Delayed Release (Dr/Ec) 40 mg PO DAILY 30 Days Qty: 30 RF: 0 furosemide 20 mg Tablet 20 mg PO DAILY 30 Days Qty: 30 RF: 0 hydroxychloroquine 200 mg Tablet 200 mg PO BID 30 Days Qty: 60 RF: 0 fluticasone 50 mcg/actuation [place],Suspension 1 spray Intranasal DAILY 30 Days RF: 0 cholecalciferol (vitamin D3) 5,000 unit Capsule 5,000 unit PO DAILY 30 Days Qty: 30 RF: 0 duloxetine 60 mg Capsule,Delayed Release(Dr/Ec) 60 mg PO DAILY 30 Days Qty: 30 RF: 0 vyyvbbmf-ommo-VJ-calcium-mins [Thera M Plus (ferrous fumarat)] 9 mg iron-400 mcg Tablet 1 tab PO DAILY 30 Days Qty: 30 RF: 0 bupropion HCl 300 mg Tablet Extended Release 24 Hr 300 mg PO QAM 30 Days Qty: 30 RF: 0 methadone 10 mg Tablet 10 mg PO Q6H PRN (Reason: Pain Scale 4 to 10) Qty: 28 RF: 0 zolpidem 5 mg Tablet 5 mg PO HS PRN (Reason: Insomnia) Qty: 30 RF: 0 pregabalin [Lyrica] 75 mg Capsule 75 mg PO BID Qty: 60 RF: 0 ondansetron [Zofran ODT] 4 mg tablet,disintegrating 4 mg PO Q8H Qty: 20 RF: 0 Discharge Instructions Patient Printed Instructions: Chest Pain (ED) Discharge Interventions Interventions: Vital Signs Last Done: 11/22/17 12:22 Status ED Status: With Doctor
[2017-11-22] MEDS ORDERED: Heparin Drip 25,000 UNIT/250 ML BAG IV.CONT PRN (13:30)
[2017-11-22] MEDS: Heparin 10,000 UNITS/10 ML Vial (for IV use) IV.PUSH STA ×2 (13:36→14:12)
[2017-11-22] MEDS: Metoprolol Inj 5 MG/5 ML Vial IV.PUSH SCH ×2 (13:40→14:53)
[2017-11-22 14:01] LABS: Activated Partial Thrombo Time 28.9 sec (24.3-30.1); INR 1.1 Ratio; Prothrombin Time 10.7 sec (9.8-11.6)
[2017-11-22] MEDS ORDERED: ALPRAZolam 0.25 MG Tablet PO PRN (14:20)
[2017-11-22] MEDS ORDERED: Acetaminophen 500 MG Tablet PO PRN (14:20)
--- NOTE | 2017-11-22 14:21 | P.HP ---
<Tiffany Cano W - Last Filed: 11/22/17 16:39> History of Present Illness Primary Care Physician: Juhi Dc Chief Complaint: vomitting, chest pain, back pain History of Present Illness: This is a 57-year-old female with a history of hypertension, hyperlipidemia, chronic low back pain, RA, [place] esophagus, Right breast cancer, Chronic Kidney disease, Colon polyps, Degenerative cervical disc, Diverticulosis, GERD, Hypertension, Hypothyroidism. Patient has history of lumbar surgery by neurosurgeon Dr. Servin in July of this year, recent admission for knee pain/ injury, and during this admission on 10/26/17 had a hemilaminectomy at L3-L4 with microdiscectomy performed by Dr. Servin, discharged home from rehab facility on 11/16/17, present for evaluation of nausea, vomiting, diarrhea, abdominal pain, and back pain. Patient reports her N/V began the day she was discharged from the rehab facility. She states that she was given the flu vaccine prior to discharge. Patient was seen in the ER 11/20/17 for abdominal pain and vomiting then DC'd home. Patient returns to the ER today. She reports vomiting multiple times today. Patient denies bright red blood or black coffee ground color to emesis. She also reports chest pain and back pain which started about 4 hours ago at rest. She denies shortness of breath, fever , cough or radiation of chest pain. Patient reports that she has been unable to tolerate oral medications except for methadone. initial troponin 0.08 initial EKG reveled: ST changes in V2 V3 potentially consistent with ischemic injury we also see T wave inversions in 1 and aVL of concern. These appear new since October 13, most recent EKGs on record. PAST MEDICAL HISTORY: [place] esophagus Right breast invasive moderately differentiated carcinoma s/p lumpectomy with sentinel lymph node biopsy and intraoperative radiation 05/24/2017 Chronic Kidney disease Colon polyps Degenerative cervical disc Diverticulosis GERD (gastroesophageal reflux disease) Hemorrhoids Hypertension Hypothyroidism s/p thyroidectomy Rheumatoid arthritis PAST SURGICAL HISTORY: 3 sections Cholecystectomy Colonoscopy - 2014 EGD with biopsy - 2014 Shoulder surgery Thyroidectomy Tonsillectomy Right breast lumpectomy with sentinel lymph node biopsy and intraoperative radiation 05/24/2017 FAMILY HISTORY: Ms. Dobbs's mother is alive. Her father is . Ms. Dobbs has 2 sons: 2 alive. She has 1 daughter who is alive. SOCIAL HISTORY: Ms. Dobbs is . Occasional ETOH use She was a daily smoker who has smoked 1.0 pack/day for 30 years reports that she has quit smoking, now using E-cigarettes - Diagnosis (1) Non-STEMI (non-ST elevated myocardial infarction) Review of Systems All other systems reviewed negative except as stated in HPI [facility] - History History Provided By: Patient - Medical History Medical History: Medical History (Last Reviewed 11/22/17 @ 12:18 by Wen Marinelli) Back pain Breast cancer Chest pain Depression FH: mastectomy Foot drop, left GERD (gastroesophageal reflux disease) High cholesterol Hypertension Hypothyroid Left knee pain Rheumatoid arthritis - Surgical History Surgical History: Surgical History (Last Reviewed 11/22/17 @ 12:18 by Wen Marinelli) H/O section H/O shoulder surgery H/O thyroidectomy History of back surgery History of cholecystectomy Hx of tonsillectomy - Family History Family History: Family History (Last Reviewed 11/02/17 @ 17:43 by TABITHA Belle) Mother Hypertension - Tobacco History Second Hand Smoke Exposure: No Tobacco Use In Past 30 Days: Yes Smoking Status: Current every day smoker Tobacco Type: Cigarettes - Alcohol History How Often Do You Have a Drink Containing Alcohol: 2 to 3 times a week - Substance Use History Substance History: No History of Abuse - Travel History Recent Travel in the [place] Within the Last 8 Weeks: No Recent Travel Out of the Country Within the Last 8 Weeks: No - Immunization History Tetanus Immunization: <5 Years Medications and Allergies Allergies Allergy/AdvReac Type Severity Reaction Status Date / Time adhesive Allergy Severe Generalized Verified 11/22/17 12:19 Rash clarithromycin Allergy Severe Rash Verified 11/22/17 12:19 codeine Allergy Severe ITCHING Verified 11/22/17 12:19 latex Allergy Severe RASH Verified 11/22/17 12:19 morphine Allergy Severe SOB, RASH Verified 11/22/17 12:19 SWELLING methotrexate Allergy Intermediate ELEVATED Verified 11/22/17 12:19 LIVER ENZYMES. Home Medications Medication Instructions Recorded Confirmed Type methadone 10 mg PO Q12H 11/23/17 11/23/17 History Active Medications: Active Medications Heparin Sodium/Dextrose (Heparin/D5w 25,000 U/250 Ml) 25,000 unit in 250 mls @ 0 mls/hr IV.CONT TITRATE PRN; Protocol PRN Reason: Per Protocol Metoprolol Tartrate (Lopressor Inj) 5 mg IV.PUSH Q5M SHERIE Stop: 11/22/17 14:11 Last Admin: 11/22/17 13:40 Dose: 5 mg Sodium Chloride (Ns Flush) 2 ml IV.FLUSH UNSCH PRN PRN Reason: FLUSH AFTER USING IV ACCESS Exam Vital signs: Vital Signs 11/22/17 12:22 11/22/17 13:46 Pulse Rate 81 72 Respiratory Rate 22 18 Blood Pressure 145/81 H 136/73 Pulse Oximetry 100 99 Intake & Output 11/21/17 11/22/17 11/22/17 18:59 06:59 18:59 Weight 71.668 kg Narrative: GENERAL: This is a well-nourished, well-developed patient, in no apparent distress. CARDIOVASCULAR: Regular rate and rhythm RESPIRATORY: Clear to auscultation. Breath sounds equal bilaterally. GASTROINTESTINAL: Abdomen soft, non-tender, nondistended. MUSCULOSKELETAL: Extremities without clubbing, cyanosis, or edema. NEURO: Alert & Oriented x4 to person, place, time, situation. Moves all ext x4 Results - Labs CBC & Chem 7: 11/22/17 12:01 11/22/17 12:01 Labs: Laboratory Results - last 24 hr 11/22/17 11/22/17 11/22/17 12:01 12:01 12:01 WBC 9.1 RBC 4.26 Hgb 13.0 D Hct 39.7 MCV 93.3 MCH 30.5 MCHC 32.6 RDW 16.6 Plt Count 232 MPV 10.0 Neut % (Auto) 59.1 Lymph % (Auto) 28.3 Potter % (Auto) 9.2 H Eos % (Auto) 2.5 Baso % (Auto) 0.9 Neut # (Auto) 5.4 Lymph # (Auto) 2.6 Potter # (Auto) 0.8 Eos # (Auto) 0.2 Baso # (Auto) 0.1 WBC Differential . Differential Comment Auto diff final PT INR APTT Sodium 142 Potassium 3.3 L Chloride 106 Carbon Dioxide 26.8 Anion Gap 9 BUN 11 Creatinine 0.87 Estimated GFR 67 L Random Glucose 101 Calcium 9.0 Total Bilirubin 0.3 AST 18 ALT 20 Alkaline Phosphatase 101 Troponin I 0.08 H B-Natriuretic Peptide 302 H Total Protein 6.5 D Albumin 3.4 Lipase 44 L 11/22/17 13:44 WBC RBC Hgb Hct MCV MCH MCHC RDW Plt Count MPV Neut % (Auto) Lymph % (Auto) Potter % (Auto) Eos % (Auto) Baso % (Auto) Neut # (Auto) Lymph # (Auto) Potter # (Auto) Eos # (Auto) Baso # (Auto) WBC Differential Differential Comment PT 10.7 INR 1.1 APTT 28.9 Sodium Potassium Chloride Carbon Dioxide Anion Gap BUN Creatinine Estimated GFR Random Glucose Calcium Total Bilirubin AST ALT Alkaline Phosphatase Troponin I B-Natriuretic Peptide Total Protein Albumin Lipase - Imaging Impressions Chest X-Ray 11/22/17 11:46 CONCLUSION: No acute cardiopulmonary disease Caprini VTE Risk Assessment Caprini VTE Risk Assessment: No/Low Risk (score <= 1) Caprini Risk Assessment Model: Point Value = 1 Point Value = 2 Point Value = 3 Point Value = 5 Age 41-60 Minor surgery BMI > 25 kg/m2 Swollen legs Varicose veins or History of unexplained or recurrent spontaneous Oral contraceptives or hormone replacement Sepsis (< 1 month) Serious lung disease, including pneumonia (< 1 month) Abnormal pulmonary function Acute myocardial infarction Congestive heart failure (< 1 month) History of inflammatory bowel disease Medical patient at bed rest Age 61-74 Arthroscopic surgery Major open surgery (> 45 min) Laparoscopic surgery (> 45 min) Malignancy Confined to bed (> 72 hours) Immobilizing plaster cast Central venous access Age >= 75 History of VTE Family history of VTE Factor V Leiden Prothrombin [id number] Lupus anticoagulant Anticardiolipin antibodies Elevated serum homocysteine Heparin-induced thrombocytopenia Other congenital or acquired thrombophilia Stroke (< 1 month) Elective arthroplasty Hip, pelvis, or leg fracture Acute spinal cord injury (< 1 month) Prophylaxis Regimen: Total Risk Factor Score Risk Level Prophylaxis Regimen 0-1 Low Early ambulation 2 Moderate Order ONE of the following: *Sequential Compression Device (SCD) *Heparin 5000 units SQ BID 3-4 Higher Order ONE of the following medications: *Heparin 5000 units SQ TID *Enoxaparin/Lovenox 40 mg SQ daily (WT < 150 kg, CrCl > 30 mL/min) *Enoxaparin/Lovenox 30 mg SQ daily (WT < 150 kg, CrCl > 10-29 mL/min) *Enoxaparin/Lovenox 30 mg SQ BID (WT < 150 kg, CrCl > 30 mL/min) AND/OR *Sequential Compression Device (SCD) 5 or more Highest Order ONE of the following medications: *Heparin 5000 units SQ TID (Preferred with Epidurals) *Enoxaparin/Lovenox 40 mg SQ daily (WT < 150 kg, CrCl > 30 mL/min) *Enoxaparin/Lovenox 30 mg SQ daily (WT < 150 kg, CrCl > 10-29 mL/min) *Enoxaparin/Lovenox 30 mg SQ BID (WT < 150 kg, CrCl > 30 mL/min) AND *Sequential Compression Device (SCD) Assessment and Plan - Assessment (1) Non-STEMI (non-ST elevated myocardial infarction) Code(s): I21.4 - Non-ST elevation (NSTEMI) myocardial infarction Status: Acute Plan: This is a 57-year-old female with a history of hypertension, hyperlipidemia, chronic low back pain, RA, [place] esophagus, Right breast cancer, Chronic Kidney disease, Colon polyps, Degenerative cervical disc, Diverticulosis, GERD, Hypertension, Hypothyroidism. Patient has history of lumbar surgery by neurosurgeon Dr. Servin in July of this year, recent admission for knee pain/ injury, and during this admission on 10/26/17 had a hemilaminectomy at L3-L4 with microdiscectomy performed by Dr. Servin, discharged home from rehab facility on 11/16/17, present for evaluation of nausea, vomiting, diarrhea, abdominal pain, and back pain. Patient reports her symptoms began the day she was discharged from the rehab facility. She states that she was given the flu vaccine prior to discharge. Patient was seen in the ER 11/20/17 for abdominal pain and vomiting then DC'd home. Patient returns to the ER today. She reports vomiting multiple times today. She also reports chest pain and back pain which started about 4 hours ago at rest. She denies shortness of breath, fever, cough, radiation of chest pain. Patient has been unable to tolerate oral medications except for methadone. - Initial troponin 0.08 - initial EKG reveals ST changes in V2, V3, V4, V5 and V6 potentially consistent with ischemic injury we also see T wave inversions in 1 and aVL of concern. These appear new since October 13, most recent EKGs on record. - Heparin drip started in ER - patient also given aspirin, metoprolol and nitroglycerin SL in the ER - ER provider placed call placed to the radio talk show host, Dr. Delcid - consult placed to Cardiology - NPO - cardiac telemetry - serial troponin - serial EKG - start patient on metoprolol 25 mg BID, aspirin daily and nitroglycerin paste Nausea/Vomiting concern for gastroparesis secondary to chronic narcotic use CT abd/pelvis with IV contrast 11/20/17 reviewed and reveals: 1. Unremarkable bowel gas pattern. 2. Status post cholecystectomy. 3. Mild hepatic steatosis. Zofran as needed for N/V repeat KUB ordered total bilirubin 0.3, AST 18, ALT 20, Alk Phos 101, Lipase 44 if N/V continue plan for GI consult once cleared by cardiology Narcotic dependency Patient follows with outpatient pain management, Dr. Katt Schulte recently stopped Duragesic patch and was started on methadone 10 mg PO TID 10/08 Patient asking for IV pain medication reports that she is allergic to morphine Start Dilaudid IV 0.2 mg Q6H as needed Depression/anxiety continue home Cymbalta Right breast cancer patient follows with Dr. Joyce outpatient invasive moderately differentiated carcinoma s/p lumpectomy with sentinel lymph node biopsy and intraoperative radiation 05/24/2017, with Dr. Chavez Continue anastrozole Hypertension home Lisinopril 40 mg daily and diltiazem 180 mg daily Hypothyroidism s/p thyroidectomy Patient follows outpatient with Dr. Mcduffie continue home levothyroxine 175 mcg daily GERD [place] Esophagitis patient follows outpatient with Dr. Rodrigez Continue patient's home Prilosec 20 mg BID Rheumatoid arthritis Continue home Leflunomide 20 mg daily, hydroxychloroquine DVT prophylaxis patient is currently on Heparin drip <Ceferino Diaz - Last Filed: 11/30/17 09:27> History of Present Illness Primary Care Physician: Juhi Dc - Diagnosis (1) Chest pain Inpatient Certification: I certify that the inpatient services were ordered in accordance with Medicare regulations governing the order. This includes certification that hospital inpatient services are reasonable and necessary and in the case of services not specified as inpatient-only under 42 CFR 419.22(n), that they are appropriately provided as inpatient services in accordance to with the 2-midnight benchmark under 43 CFR 412.3(e) [facility] - Medical History Medical History: Medical History (Last Reviewed 11/22/17 @ 12:18 by Wen Marinelli) Back pain Breast cancer Chest pain Depression FH: mastectomy Foot drop, left GERD (gastroesophageal reflux disease) High cholesterol Hypertension Hypothyroid Left knee pain Rheumatoid arthritis - Surgical History Surgical History: Surgical History (Last Reviewed 11/22/17 @ 12:18 by Wen Marinelli) H/O section H/O shoulder surgery H/O thyroidectomy History of back surgery History of cholecystectomy Hx of tonsillectomy - Family History Family History: Family History (Last Reviewed 11/02/17 @ 17:43 by TABITHA Belle) Mother Hypertension Results - Labs CBC & Chem 7: 11/23/17 06:10 11/22/17 12:01 Caprini VTE Risk Assessment Caprini Risk Assessment Model: Point Value = 1 Point Value = 2 Point Value = 3 Point Value = 5 Age 41-60 Minor surgery BMI > 25 kg/m2 Swollen legs Varicose veins or History of unexplained or recurrent spontaneous Oral contraceptives or hormone replacement Sepsis (< 1 month) Serious lung disease, including pneumonia (< 1 month) Abnormal pulmonary function Acute myocardial infarction Congestive heart failure (< 1 month) History of inflammatory bowel disease Medical patient at bed rest Age 61-74 Arthroscopic surgery Major open surgery (> 45 min) Laparoscopic surgery (> 45 min) Malignancy Confined to bed (> 72 hours) Immobilizing plaster cast Central venous access Age >= 75 History of VTE Family history of VTE Factor V Leiden Prothrombin [id number] Lupus anticoagulant Anticardiolipin antibodies Elevated serum homocysteine Heparin-induced thrombocytopenia Other congenital or acquired thrombophilia Stroke (< 1 month) Elective arthroplasty Hip, pelvis, or leg fracture Acute spinal cord injury (< 1 month) Prophylaxis Regimen: Total Risk Factor Score Risk Level Prophylaxis Regimen 0-1 Low Early ambulation 2 Moderate Order ONE of the following: *Sequential Compression Device (SCD) *Heparin 5000 units SQ BID 3-4 Higher Order ONE of the following medications: *Heparin 5000 units SQ TID *Enoxaparin/Lovenox 40 mg SQ daily (WT < 150 kg, CrCl > 30 mL/min) *Enoxaparin/Lovenox 30 mg SQ daily (WT < 150 kg, CrCl > 10-29 mL/min) *Enoxaparin/Lovenox 30 mg SQ BID (WT < 150 kg, CrCl > 30 mL/min) AND/OR *Sequential Compression Device (SCD) 5 or more Highest Order ONE of the following medications: *Heparin 5000 units SQ TID (Preferred with Epidurals) *Enoxaparin/Lovenox 40 mg SQ daily (WT < 150 kg, CrCl > 30 mL/min) *Enoxaparin/Lovenox 30 mg SQ daily (WT < 150 kg, CrCl > 10-29 mL/min) *Enoxaparin/Lovenox 30 mg SQ BID (WT < 150 kg, CrCl > 30 mL/min) AND *Sequential Compression Device (SCD) Assessment and Plan - Assessment (1) Chest pain Code(s): R07.9 - Chest pain, unspecified Status: Acute - Attending Attestation The exam, history, and the medical decision-making described in the above note were completed with the assistance of the mid-level provider. I reviewed and agree with the findings presented. I attest that I had a [id number] encounter with the patient on the same day, and personally performed and documented my assessment and findings in the medical record. Patient examined. Assessment and plan formulated with Tiffany Cano PA-C. I agree with the above.
[2017-11-22] MEDS ORDERED: Zolpidem Tartrate 5 MG Tablet PO PRN (14:32)
[2017-11-22] MEDS ORDERED: Methadone 10 MG Tablet PO PRN (14:32)
[2017-11-22] MEDS ORDERED: Non-Formulary Drug (Bupropion Hcl [Bupropion Hcl] 300 MG) PO SCH (14:45)
--- NOTE | 2017-11-22 15:41 | XR ---
EXAM DATE: 11/22/2017 12:00 AM EDT AGE/SEX: 57 years / Female INDICATIONS: Abdominal pain and distention. CLINICAL DATA: This is the patient's sequela encounter. Patient reports that signs and symptoms have been present for 1 week and indicates a pain score of 10/10. MEDICAL/SURGICAL HISTORY: None. None. Lumbar fusion. COMPARISON: [facility], ABDOMEN 1V KUB, 11/05/2017. . FINDINGS: The abdominal bowel gas pattern is normal. No abnormal masses, calcifications, or organomegaly is s een. The osseous structures are unremarkable. Cholecystectomy clips. Posterior fusion on the left L4 -S1 CONCLUSION: No obstruction. Electronically signed by: Julian Lorenzo MD 11/22/2017 3:40 PM EDT
[2017-11-22] MEDS: HYDROmorphone PF Inj 2 MG/ML Vial IV.PUSH PRN ×2 (16:01→22:53)
--- NOTE | 2017-11-22 16:19 | MB ---
cc: Wiley Delcid MD DATE: 11/22/2017 HISTORY OF PRESENT ILLNESS: This is a 57-year-old woman who was admitted to the hospital with chest and abdominal pain. She has a long history of back pain, as well as chronic hypertension. In July, she underwent laminectomy and spinal fusion. After this she did develop a foot drop and was readmitted to the hospital in October for a discectomy. She was then sent to [facility] and was doing fairly well approaching her discharge, but prior to discharge was given a flu shot and sent home. This occurred last week and since that time she has developed significant abdominal pain with nausea, vomiting and loose stools. She actually was seen in the emergency department the day before yesterday. A CT scan was done at that time, which was unremarkable and a laboratory examination was also similarly unremarkable. She was treated symptomatically and sent home. Her abdominal pain worsened again this morning and then was also associated with chest discomfort, which she described as a heaviness in her chest. This lasted for approximately 3-4 hours and was associated with some mild shortness of breath. No diaphoresis, nausea or vomiting was present during this episode. Since her admission to the hospital a chest x-ray was done, which is unremarkable and an electrocardiogram reveals T-wave inversion in the anterior precordium, which is new. Troponin is slightly elevated at 0.08. Her lipase, liver enzymes are normal. No prior history of heart disease has been present. Risk factors for coronary disease in addition to hypertension is significant for hyperlipidemia as well as a prior history of smoking a pack of cigarettes per day, having stopped in July. ALLERGIES: MULTIPLE INCLUDING MORPHINE, ADHESIVE TAPE. PAST MEDICAL HISTORY: Also been significant for breast cancer, which has been in remission. PHYSICAL EXAMINATION: GENERAL: She is awake and alert and in some mild abdominal distress. VITAL SIGNS: Her blood pressure is 140/70, pulse is 70 and regular. NECK: There is no neck vein distention. No carotid bruits are present. CHEST: Clear. CARDIOVASCULAR: Reveals a regular rate and rhythm. There is no murmur. No gallop is noted. ABDOMEN: Rather diffusely tender. No masses are palpable. There is no guarding or rebound. Bowel sounds are normal. EXTREMITIES: Reveal no edema. ASSESSMENT AND PLAN: The patient has abdominal and chest discomfort of uncertain etiology, although likely gastritis and questionable unstable angina. She has been started on heparin and would continue this as we trend her troponins and repeat an electrocardiogram. Potassium was also down. We will replace her potassium and repeat her electrocardiogram in the morning. Further recommendations will depend on outcome of those studies. We will keep her n.p.o. in the event that her troponin is elevated and she needs cardiac catheterization. I discussed smoking cessation. She is not going to resume that. I will also continue her methadone for pain relief and Protonix for her abdominal discomfort as well as 1 aspirin and nitro paste. MD DALILA Wooten/ct , 03:18 PM , 03:25 PM
[2017-11-22 16:48] LABS: Bilirubin,Urine Negative (Negative); Clarity,Urine Clear (Clear); Color,Urine Yellow (Yellw/Straw); Glucose,Urine (UA) Negative (Negative); Leukocyte Esterase,Urine Negative (Negative); Nitrite,Urine Negative (Negative); Specific Gravity,Urine 1.008 (1.002-1.035); Squamous Epithelial Cell,Urine <1 /hpf (0-5)
[2017-11-22 16:53] LABS: Amphetamine Screen,Urine Neg (Neg); Barbiturate Screen,Urine Neg (Neg); Cannabinoid Screen,Urine Neg (Neg); Cocaine Screen,Urine Neg (Neg)
[2017-11-22 16:56] LABS: Opiate Screen,Urine Neg (Neg)
[2017-11-22] MEDS: Sucralfate 1 GM Tablet PO SCH ×2 (18:43→22:51)
[2017-11-22 22:37] LABS: Magnesium 1.8 mg/dL (1.5-2.5)
[2017-11-22 22:40] LABS: Troponin I 0.07 ng/mL (0.02-0.05)
[2017-11-22] MEDS: Hydroxychloroquine 200 MG Tablet PO SCH (22:52)
[2017-11-22] MEDS: Pregabalin 75 MG Capsule PO SCH (22:52)
[2017-11-22] MEDS: buPROPion 150 MG 12 HR Tablet PO SCH (22:52)
[2017-11-22] MEDS: Senna/Docusate Sodium 8.6/50 MG Tablet PO SCH (22:53)
[2017-11-22] MEDS: Metoprolol Tartrate 25 MG Tablet PO SCH (22:53)
[2017-11-23] MEDS ORDERED: Heparin 10,000 UNITS/10 ML Vial (for IV use) IV.PUSH PRN ×4 (00:16→05:12)
[2017-11-23] MEDS: HYDROmorphone PF Inj 2 MG/ML Vial IV.PUSH PRN (05:51)
[2017-11-23] MEDS ORDERED: Levothyroxine 100 MCG Tablet PO SCH (06:00)
[2017-11-23] MEDS ORDERED: Levothyroxine 75 MCG Tablet PO SCH (06:00)
[2017-11-23 07:10] LABS: Hematocrit 42.6 % (35.0-46.0); Hemoglobin 13.9 gm/dL (11.6-15.3); Mean Corpuscular HGB Conc 32.6 % (32.0-36.0); Mean Corpuscular Hemoglobin 30.6 pg (27.0-34.0); Mean Corpuscular Volume 93.8 fL (80.0-100.0); Mean Platelet Volume 10.7 fL (7.0-11.0); Platelet Count 164 th/mm3 (150-450); Red Blood Count 4.54 mil/mm3 (4.00-5.30); Red Cell Distribution Width 16.4 % (11.6-17.2); White Blood Count 8.4 th/mm3 (4.0-11.0)
[2017-11-23 07:11] LABS: Chol/HDL Ratio 4.33 Ratio; HDL Cholesterol 40.6 mg/dL (40.0-60.0); Troponin I 0.06 ng/mL (0.02-0.05)
--- NOTE | 2017-11-23 08:15 | P.PNCA ---
Subjective Interval history: No further chest pain overnight. Still with some abdominal discomfort. She denies any bleeding issues; blood in the urine, blood in the stool, coughing up blood. Agreeable for cardiac catheterization today. Medications and Allergies Allergies Allergy/AdvReac Type Severity Reaction Status Date / Time adhesive Allergy Severe Generalized Verified 11/22/17 12:19 Rash clarithromycin Allergy Severe Rash Verified 11/22/17 12:19 codeine Allergy Severe ITCHING Verified 11/22/17 12:19 latex Allergy Severe RASH Verified 11/22/17 12:19 morphine Allergy Severe SOB, RASH Verified 11/22/17 12:19 SWELLING methotrexate Allergy Intermediate ELEVATED Verified 11/22/17 12:19 LIVER ENZYMES. Active Medications: Active Medications Acetaminophen (Tylenol) 500 mg PO Q4H PRN PRN Reason: HEADACHE Alprazolam (Xanax) 0.25 mg PO TID PRN PRN Reason: ANXIETY Anastrozole (Arimidex) 1 mg PO DAILY [facility] Aspirin (Ecotrin) 81 mg PO DAILY [facility] Bupropion HCl (Wellbutrin Sr) 150 mg PO BID [facility] Last Admin: 11/22/17 22:52 Dose: 150 mg Cyclobenzaprine HCl (Flexeril) 10 mg PO Q8H PRN PRN Reason: Muscle Spasm Last Admin: 11/23/17 05:54 Dose: 10 mg Duloxetine HCl (Cymbalta) 60 mg PO DAILY [facility] Heparin Sodium (Porcine) (Heparin Inj) 5,000 units IV.PUSH UNSCH PRN PRN Reason: aPTT < 25 Heparin Sodium (Porcine) (Heparin Inj) 2,500 units IV.PUSH UNSCH PRN PRN Reason: aPTT 25-39 Last Admin: 11/23/17 00:21 Dose: 2,500 units Hydromorphone HCl (Dilaudid Pf Inj) 0.2 mg IV.PUSH Q6H PRN PRN Reason: BREAKTHROUGH PAIN Last Admin: 11/23/17 05:51 Dose: 0.2 mg Hydroxychloroquine Sulfate (Plaquenil) 200 mg PO BID [facility] Last Admin: 11/22/17 22:52 Dose: 200 mg Heparin Sodium/Dextrose (Heparin/D5w 25,000 U/250 Ml) 25,000 unit in 250 mls @ 0 mls/hr IV.CONT TITRATE PRN; Protocol PRN Reason: Per Protocol Last Titration: 11/23/17 00:24 Dose: 1,100 units/hr, 11 mls/hr Levothyroxine Sodium (Synthroid) 100 mcg PO DAILY@0600 [facility] Last Admin: 11/23/17 05:54 Dose: 100 mcg Levothyroxine Sodium (Synthroid) 75 mcg PO DAILY@0600 [facility] Last Admin: 11/23/17 05:54 Dose: 75 mcg Lisinopril (Prinivil) 40 mg PO DAILY [facility] Methadone HCl (Dolophine) 10 mg PO Q6H PRN PRN Reason: Pain Scale 4 to 10 Methylprednisolone (Medrol) 4 mg PO Q24H [facility] Last Admin: 11/22/17 22:51 Dose: Not Given Metoprolol Tartrate (Lopressor) 25 mg PO BID [facility] Last Admin: 11/22/17 22:53 Dose: 25 mg Nifedipine (Procardia Xl) 60 mg PO DAILY [facility] Nitroglycerin (Nitro-Bid 2% Oint) 1 inch TOPICAL Q6HR [facility] Last Admin: 11/23/17 05:51 Dose: 1 inch Ondansetron HCl (Zofran Inj) 4 mg IV.PUSH Q6H PRN PRN Reason: NAUSEA OR VOMITING Last Admin: 11/23/17 05:48 Dose: 4 mg Pantoprazole Sodium (Protonix) 40 mg PO DAILY [facility] Pt:Leflunomide 20 Mg 0 each PO DAILY [facility] Pravastatin Sodium (Pravachol) 40 mg PO HS [facility] Last Admin: 11/22/17 22:52 Dose: 40 mg Pregabalin (Lyrica) 75 mg PO BID [facility] Last Admin: 11/22/17 22:52 Dose: 75 mg Senna/Docusate Sodium (Alicia-Colace) 1 tab PO BID [facility] Last Admin: 11/22/17 22:53 Dose: Not Given Sodium Chloride (Ns Flush) 2 ml IV.FLUSH BID [facility] Last Admin: 11/22/17 22:53 Dose: 2 ml Sodium Chloride (Ns Flush) 2 ml IV.FLUSH PRN PRN PRN Reason: FLUSH AFTER USING IV ACCESS Sucralfate (Carafate) 1 gm PO ACHS [facility] Last Admin: 11/22/17 22:51 Dose: 1 gm Vitamin D (Vitamin D3) 5,000 unit PO DAILY [facility] Zolpidem Tartrate (Ambien) 5 mg PO HS PRN PRN Reason: Insomnia Physical Exam Vital signs: Vital Signs 11/22/17 12:22 11/22/17 13:46 11/22/17 14:16 Temperature Pulse Rate 81 72 73 Respiratory Rate 22 18 21 Blood Pressure 145/81 H 136/73 141/80 H Pulse Oximetry 100 99 99 11/22/17 18:43 11/22/17 20:00 11/22/17 23:00 Temperature 98.4 F Pulse Rate 72 72 Respiratory Rate 17 14 Blood Pressure 130/74 Pulse Oximetry 97 11/23/17 00:00 11/23/17 03:00 11/23/17 04:00 Temperature 98.2 F 97.8 F Pulse Rate 69 67 69 Respiratory Rate 14 14 Blood Pressure 104/69 115/71 Pulse Oximetry 96 97 Intake & Output 11/22/17 11/23/17 11/23/17 18:59 06:59 18:59 Intake Total 240 / 240 Output Total 0 / 0 Balance 240 / 240 Weight 158 lb 184 lb 1.376 oz Intake: Oral 240 / 240 Output: Emesis 0 / 0 Other: # Voids 3 # Bowel Movements 0 Narrative: GENERAL: Well-developed well-nourished. In no acute distress. NECK: No carotid bruits. No JVD. CARDIOVASCULAR: Regular rate and rhythm. No murmur appreciated. RESPIRATORY: No accessory muscle use. Clear to auscultation. Breath sounds equal bilaterally. MUSCULOSKELETAL: No clubbing or cyanosis. No edema. NEUROLOGICAL: Awake and alert. Normal speech. Results 11/23/17 06:10 11/22/17 12:01 Cardiac Enzymes 11/22/17 11/22/17 11/22/17 Range/Units 12:01 12:01 22:11 AST 18 (15-37) U/L Troponin I 0.08 H 0.07 H (0.02-0.05) ng/mL B-Natriuretic Peptide 302 H (0-100) pg/mL 11/23/17 Range/Units 06:10 AST (15-37) U/L Troponin I 0.06 H (0.02-0.05) ng/mL B-Natriuretic Peptide (0-100) pg/mL Coagulation 11/22/17 11/22/17 11/22/17 Range/Units 12:01 13:44 22:11 PT 10.7 (9.8-11.6) sec APTT 28.9 38.3 H D (24.3-30.1) sec B-Natriuretic Peptide 302 H (0-100) pg/mL 11/23/17 Range/Units 06:10 PT (9.8-11.6) sec APTT 49.8 H D (24.3-30.1) sec B-Natriuretic Peptide (0-100) pg/mL Lipids 11/23/17 Range/Units 06:10 Triglycerides 186 H (42-150) mg/dL Cholesterol 176 (120-200) mg/dL HDL Cholesterol 40.6 (40.0-60.0) mg/dL Cholesterol/HDL Ratio 4.33 Ratio CBC 11/22/17 11/23/17 Range/Units 12:01 06:10 WBC 9.1 8.4 (4.0-11.0) th/mm3 RBC 4.26 4.54 (4.00-5.30) mil/mm3 Hgb 13.0 D 13.9 (11.6-15.3) gm/dL Hct 39.7 42.6 (35.0-46.0) % Plt Count 232 164 (150-450) th/mm3 Neut # (Auto) 5.4 (1.8-7.7) th/mm3 Lymph # (Auto) 2.6 (1.0-4.8) th/mm3 Owen # (Auto) 0.8 (0.0-0.9) th/mm3 Eos # (Auto) 0.2 (0.0-0.4) th/mm3 Baso # (Auto) 0.1 (0.0-0.2) th/mm3 Comprehensive Metabolic Panel 11/22/17 Range/Units 12:01 Sodium 142 (136-145) meq/L Potassium 3.3 L (3.5-5.1) meq/L Chloride 106 (98-107) meq/L Carbon Dioxide 26.8 (21.0-32.0) meq/L BUN 11 (7-18) mg/dL Creatinine 0.87 (0.50-1.00) mg/dL Calcium 9.0 (8.5-10.1) mg/dL AST 18 (15-37) U/L ALT 20 (10-53) U/L Alkaline Phosphatase 101 (45-117) U/L Total Protein 6.5 D (6.4-8.2) g/dL Albumin 3.4 (3.4-5.0) g/dL Intake and Output 11/22/17 11/23/17 11/23/17 22:59 06:59 14:59 Intake Total 240 / 240 Output Total 0 / 0 Balance 240 / 240 Intake: Oral 240 / 240 Output: Emesis 0 / 0 Other: # Voids 3 # Bowel Movements 0 Weight 184 lb 1.376 oz - Imaging and Cardiology Imaging: Impressions Abdomen X-Ray 11/22/17 00:00 CONCLUSION: No obstruction. Chest X-Ray 11/22/17 11:46 CONCLUSION: No acute cardiopulmonary disease Assessment and Plan - Plan 57-year-old female with past medical history of HTN, HLD, tobacco use who presented with chest and abdominal pain and was found to have new precordial T wave inversions and troponin elevation up to 0.08. Chest pain with elevated troponin and EKG changes: Possible NSTEMI. N.p.o. for [facility] today. Aspirin started. Continue heparin GTT for now. Nitropaste for now. Discussed Condition With: Patient, RN, Dr. Noguera - Attending Attestation atypical symptoms abnormal EKG with dynamic T wave inversions elevated trop [facility] shows mild CAD med mgt will sign off call with further questions
[2017-11-23] MEDS: Hydroxychloroquine 200 MG Tablet PO SCH (08:23)
[2017-11-23] MEDS: Sucralfate 1 GM Tablet PO SCH ×2 (08:23→12:52)
[2017-11-23] MEDS: Senna/Docusate Sodium 8.6/50 MG Tablet PO SCH (08:23)
[2017-11-23] MEDS: buPROPion 150 MG 12 HR Tablet PO SCH (08:23)
[2017-11-23] MEDS: Pregabalin 75 MG Capsule PO SCH (08:23)
[2017-11-23] MEDS: Metoprolol Tartrate 25 MG Tablet PO SCH (08:24)
[2017-11-23] MEDS ORDERED: PT:LEFLUNOMIDE 20 MG PO SCH (09:00)
[2017-11-23] MEDS ORDERED: Duloxetine 60 MG DR Capsule PO SCH (09:00)
[2017-11-23] MEDS ORDERED: Lisinopril 20 MG Tablet PO SCH (09:00)
[2017-11-23] MEDS ORDERED: Anastrozole 1 MG Tablet PO SCH (09:00)
[2017-11-23 10:42] VITALS: TEMP 98.4
[2017-11-23] MEDS ORDERED: Heparin/NS PF Inj 1,000 ML ONE (12:33)
[2017-11-23] MEDS ORDERED: fentaNYL Citrate Inj 100 MCG/2 ML Ampul ONE (12:33)
[2017-11-23] MEDS ORDERED: Heparin 10,000 UNITS/10 ML Vial (for IV use) ONE (12:33)
--- NOTE | 2017-11-23 13:03 | P.PCN ---
Date of procedure: 11/23/17 Pre-op diagnosis: Acute coronary syndrome Procedure: Procedures performed: 1. Fluoroscopy with interpretation 2. Coronary angiography Methods: Risk, benefits, and alternatives were discussed with the patient. Patient understood and consented to the procedure. Patient was brought into the cardiac catheterization lab and placed in catheterization table. Right wrist was prepped and draped in a sterile fashion. Right wrist was anesthetized with 2% lidocaine. Right radial artery was cannulated and a 6 Citizen [place] 7 cm sheath was placed without difficulty. 200 mcg of intra-arterial nitroglycerin was administered. 3000 units of intravenous heparin was administered. Coronary angiography: 1. Left main coronary is angiographically normal 2. Left anterior descending coronary has mild luminal irregularities 3. Left circumflex has 30% calcific stenosis in the mid to distal segment and gives rise to 3 obtuse marginal branches 4. Right coronary has mild luminal irregularities Conclusions: 1. Mild nonobstructive coronary disease Plan: Patient be continued on guideline directed medical therapy. Suspect that the EKG changes are likely related to electrolyte abnormalities. Symptoms are rather atypical but now we have a definitive diagnosis. Patient can follow-up with primary care physician upon discharge. Will sign off call with any further questions.
--- NOTE | 2017-11-23 13:10 | CATHPROC ---
[id number] HIS Report Study Information Study Number Admission Scheduled Start Study Start [id number] Nov 22 2017 2:14PM 11/23/2017 Nov 23 2017 12:25PM [place] Service Cardiac Catheterization Admit Source Facility Department Emergency department [facility] - Folder Taper Operator Physician and Clinical Staff Initial Nilson Alonzo RN, Dariel Alanis RN Neurological SurgeonRuth Angeles,IZA Recorder Lesley Castro,FINISH INSPECTOR TECH2 Scrub Melanie Decker,EVIDENCE TECHNICIAN TECH2 Procedures Performed Procedure Location (Site) Vessel Name Coronary Angiograms LCA Left Coronary Coronary Angiograms RCA Right Coronary Equipment Time Retail Coordinator Description Size Mfg Part Number Used/Scraped TRANSDUCER, TRUWAVE [id number] 12:28 F[employer]ON GUZMAN * Used W/STOCKCOCK *[id number] [id number] *[id number] [id number] *[id number] [id number] *[id number] 12:28 [employer] BLANKET,WARM AIR CCL * Used *[id number] 12:28 [employer] PACK, CCL CUSTOM * Used *[id number] 12:28 [employer] SUPPORT, ARTERIAL ADULT [id number] *[id number] Used BAND, RADIAL COMPRESSION TR [id number] 13:07 [employer] 24CM Used SHORT 24 *[id number] SHEATH, FR6 RADIAL PRELUDE 12:28 [employer] FR 6 [id number] Used EASE 11CM [id number] 12:28 [employer] WIRE, EXCHANGE 260CM 3MMJ 260CM Used *[id number] 12:28 NAMIC MANIFOLD, 4 PORT * Used *[id number] 12:28 [employer] OMNIPAQUE, 350 MG, 150ML 150ML [id number] Used History: Allergies Allergy Reaction morphine SOB, RASH SWELLING methotrexate ELEVATED LIVER ENZYMES. adhesive Generalized Rash clarithromycin Rash latex RASH CODINE HALLUCINATION codeine ITCHING History: Risk Factors Family History of Hypertension Dyslipidemia Previous [place] Previous Heart Failure Premature CAD Yes Yes Yes No No Prior Valve Prior PCI Prior CABG Surgery No No No Cerebrovascular Peripheral Artery Chronic Lung On Dialysis Diabetes Disease Disease Disease No No Yes No No History: Stress Tests Stress or Imaging Studies Performed No History: Other Disease Selection Items Cancer Gerd History: Other Current Smoker Method Packs a Day Years Used Pack Years Yes Cigarettes 1 30 30 Labs Hgb (g/dl) Hct (%) WBC (l/cumm) Platelets (thousands) 11.60-17.00 35.00-51.00 4.00-11.00 150.00-450.00 13.9 42.6 8.4 164 Glucose (mg/dl) BUN (mg/dl) Creatinine (mg/dl) BUN:Creatinine (1:x) 74.00-106.00 7.00-18.00 0.50-1.30 10.00-20.00 101 11 0.8 13.8 Na (meq/l) K (meq/l) 136.00-145.00 3.50-5.10 142 3.3 INR (PTT:PT) 0.90-1.10 1.1 Troponin I (ng/ml) CPK (u/l) CPK-MB (ng/ML) 0.02-0.05 26.00-308.00 0.50-3.60 0.06 75 Not Drawn Medication Medication Total Dose (Bolus/Oral) Medication Total Dosage/Unit 1% XYLOCAINE 5 mL FENTANYL 50 mcg HEPARIN 3000 units NTG (IC) 200 mcg VERSED 1 mg Medications (Bolus/Oral) Medication Time Given Dosage/Unit Administered By Reason 11/23/2017 12:43:40 VERSED 1 mg Ruth Rosado 1 mg VERSED given in lab by Ruth Rosado RN in Left Antecubital via Peripheral IV. Ordered by Nilson Ramírez. 11/23/2017 12:44:59 FENTANYL 50 mcg Ruth Rosado 50 mcg FENTANYL given in lab by Ruth Rosado RN in Left Antecubital via Peripheral IV. Ordered by Nilson Noguera. 11/23/2017 12:47:59 1% XYLOCAINE 5 mL Nilson Noguera 5 mL 1% XYLOCAINE given in lab by Nilson Noguera in Right Radial via Subcutaneous. Ordered by Nilson Noguera. 11/23/2017 12:48:55 NTG (IC) 200 mcg Nilson Noguera 200 mcg NTG (IC) given in lab by Nilson Noguera in Right Radial via Intra-coronary. Ordered by Nilson Noguera. 11/23/2017 12:49:16 HEPARIN 3000 units Nilson Noguera 3000 units HEPARIN given in lab by Nilson Noguera in Left Forearm via Peripheral IV. Ordered by Nilson Noguera. Medication (Drip) Medication Time Given Dosage/Unit Concentration/Unit Diluent (ml) Solution 11/23/2017 12:25:25 IV Solutions 0 mL (IV) 500 NaCl .9 PM Patient arrived on IV Solutions in Left Antecubital via Peripheral IV. Pump/Drip Flow = 20 ml/hr usin g NaCl .9. Initial Case Assessment Cardiovascular HR Rhythm NIBP Chest Pain 70 sr 130/76 0 Circulatory - Right Pulses Dorsalis Pedis Femoral Radial 1 1 2 Scale (0,1,2,3,4,d) Scale (0,1,2,3,4,d) Neurological State Oriented to time-place- Alert Moves all extremities person Respiration - General Respiration Rate SpO2 (%) (B/min) 10 95 Final Case Assessment Cardiovascular HR Rhythm NIBP Chest Pain 67 sr 124/76 0 Circulatory - Right Pulses Dorsalis Pedis Femoral Radial 1 1 2 Scale (0,1,2,3,4,d) Scale (0,1,2,3,4,d) Neurological State Oriented to time-place- Alert Moves all extremities person Respiration - General Respiration Rate SpO2 (%) (B/min) 11 93 Chronological Log Time Study Chronological Log 12:18:44 Patient arrived via Bed. 12:18:51 Patient Name, D.O.B, / Armband Verified By R.N. 12:25:00 Consent signed by the physician and the patient and verified by the Folder Taper Operator staff. 12:25:01 Pre-op and post- op instructions given; patient acknowledges understanding of instructions. 12:25:02 Verbal Stimulation=2 Physical Stimulation=2 Airway=2 Respiration=2 TOTAL=8. (0=absent, 1=li mited, 2=present) 12:25:15 Presedation assessment performed by Folder Taper Operator RN. 12:25:17 Allens test performed on the right radial and ulnar artery. 12:25:19 Patient has been NPO for More than 6Hrs. 12:25:20 Skin Breakdown-none 12:25:21 Richard Prominences Protected 12:25:23 A # 20 IV was noted in the Forearm (left). Grade = 0 12:25:25 Patient arrived on IV Solutions in Left Antecubital via Peripheral IV. Pump/Drip Flow = 20 ml/hr using NaCl .9. 12:25:26 A # 20 IV was noted in the Antecubital (left). Grade = 0 12:25:27 History and physical on the chart or being dictated. Vitals capture started with the following parameters, Patient=Adult, Interval=5 min, Initial Pr kvbixf=365 mmHg, 12:26:57 Deflation Rate=5 mmHg, Cuff placed on Left Arm 12:27:33 HR=85 bpm, KTWV=482/76 mmhg, SpO2=95.0 %, Resp=19 B/min Assessment: Initial Case, HR=70 BPM, Rhythm=sr, UVJL=932/76 mmhg, Chest Pain=0 Right Pulses: Alfredo Ped=1, Femoral=1, Radial=2 12:28:03 Neurological: State=Alert, Ox3, [place] Respiration: Resp=10 B/min, SpO2=95 % 12:30:11 Reference ECG taken 12:32:24 Right groin and right wrist prepped with 2% chlorhexidine, and draped after a 3 min. waitin g time. 12:32:34 HR=72 bpm, RITF=131/82 mmhg, SpO2=95.0 %, Resp=14 B/min 12:36:15 MD paged 12:36:19 MD responded 12:37:15 Pressure channel 1 zeroed. 12:37:37 HR=73 bpm, UZYY=325/80 mmhg, SpO2=94.0 %, Resp=14 B/min 12:42:18 MD arrived. 12:42:34 HR=71 bpm, SHFF=480/83 mmhg, SpO2=94.0 %, Resp=20 B/min Time Out. Correct patient, correct procedure, correct physician, labs, allergies, and equipment verified with clinical lab clerk 12:43:22 team present. Fire risk assesment completed (see hard stop sheet for coding). Time Out Conc urred by MD and individual staff in procedure. 12:43:40 1 mg VERSED given in lab by Ruth Rosado, IZA in Left Antecubital via Peripheral IV. Orde red by Nilson Noguera. 12:44:59 50 mcg FENTANYL given in lab by Ruth Rosado, RN in Left Antecubital via Peripheral IV. Ordered by Nilson Noguera. 12:47:37 HR=67 bpm, UZUB=202/74 mmhg, SpO2=93.0 %, Resp=15 B/min 12:47:52 Case Start 12:47:59 5 mL 1% XYLOCAINE given in lab by Nilson Noguera in Right Radial via Subcutaneous. Ordered by iNlson Noguera. 12:48:23 Access site was Right Radial Artery . A SHEATH, FR6 RADIAL PRELUDE EASE 11CM FR 6 was advanced into the Radial (right) using the Perc utaneous 12:48:33 technique. 12:48:55 200 mcg NTG (IC) given in lab by Nilson Noguera in Right Radial via Intra-coronary. Ordered by Nilson Noguera. 12:49:16 3000 units HEPARIN given in lab by Nilson Noguera in Left Forearm via Peripheral IV. Ordere d by Nilson Noguera. 12:49:58 In the Radial (right) the SHEATH, FR6 RADIAL PRELUDE EASE 11CM FR [address] by Nilson Noguera. 12:50:28 A catheter was advanced over a wire. contrast was used for injections. A JR 5.0 INFINITI CATHETER FR 5 was advanced over a wire. OMNIPAQUE, 350 MG, 150ML 150ML was us ed for 12:51:22 injections. 12:51:57 The RCA was injected and visualized at various angles. OMNIPAQUE, 350 MG, 150ML 150ML used . 12:52:36 HR=65 bpm, AHGF=473/73 mmhg, SpO2=91 %, Resp=11 B/min After removing the current catheter a JL 3.5 INFINITI CATHETER FR 5 was advanced over a WIRE, E XCHANGE 260CM 12:52:57 3MMJ 260CM. Recorded Pressure: Ao, HR=67, Condition=Condition 1 12:54:23 (Aorta) Ao 118/71/90 12:55:12 The LCA was injected and visualized at various angles. OMNIPAQUE, 350 MG, 150ML 150ML use d. 12:56:08 Catheter was removed 12:56:38 Case End (Physician broke scrub) 12:57:35 HR=71 bpm, RDIP=018/76 mmhg, SpO2=93.0 %, Resp=11 B/min Radial Compression Device Used. 7 mLs of air placed in BAND, RADIAL COMPRESSION TR SHORT 24 24 CM. Affected 13:04:06 hand 93 % O2 saturation. 13:07:07 No case complications noted. 13:07:09 Cine recording checked. Assessment: Final Case, HR=67 BPM, Rhythm=sr, LFLP=416/76 mmhg, Chest Pain=0 Right Pulses: Alfredo Ped=1, Femoral=1, Radial=2 13:07:22 Neurological: State=Alert, Ox3, [place] Respiration: Resp=11 B/min, SpO2=93 % 13:08:23 Patient moved to bed 13:09:31 Patient transported to [facility]PCU. End Study - Contrast Media Used In Study Contrast Total Opened (mL) Total Used (mL) Total Wasted (mL) Omnipaque 25 25 0 End Study - Maximum Contrast Load Max Contrast Load (mL) 521.9 End Study - Radiation Exposure Fluoro Time Fluoro Dose (mGy) Cine Dose (uGym2) (minutes) 1.4 564 2941 End Study - Sheaths Sheaths Pulled By Sheath Hold Time (min) Melanie Decker End Study - Patient Disposition Complications Transferred To Interventional Outcome No Critical Care Bed No attempt made
--- NOTE | 2017-11-23 14:20 | P.DS ---
<Tiffany Cano W - Last Filed: 11/23/17 14:48> Date of admission: 11/22/17 14:14 Primary care physician: Juhi Dc Attending physician on discharge: Ceferino Diaz Anticipated date of discharge: 11/23/17 Brief History from admission: This is a 57-year-old female with a history of hypertension, hyperlipidemia, chronic low back pain, RA, [place] esophagus, Right breast cancer, Chronic Kidney disease, Colon polyps, Degenerative cervical disc, Diverticulosis, GERD, Hypertension, Hypothyroidism. Patient has history of lumbar surgery by neurosurgeon Dr. Servin in July of this year, recent admission for knee pain/ injury, and during this admission on 10/26/17 had a hemilaminectomy at L3-L4 with microdiscectomy performed by Dr. Servin, discharged home from rehab facility on 11/16/17, present for evaluation of nausea, vomiting, diarrhea, abdominal pain, and back pain. Patient reports her N/V began the day she was discharged from the rehab facility. She states that she was given the flu vaccine prior to discharge. Patient was seen in the ER 11/20/17 for abdominal pain and vomiting then DC'd home. Patient returns to the ER today. She reports vomiting multiple times today. Patient denies bright red blood or black coffee ground color to emesis. She also reports chest pain and back pain which started about 4 hours ago at rest. She denies shortness of breath, fever , cough or radiation of chest pain. Patient reports that she has been unable to tolerate oral medications except for methadone. initial troponin 0.08 initial EKG reveled: ST changes in V2 V3 potentially consistent with ischemic injury we also see T wave inversions in 1 and aVL of concern. These appear new since October 13, most recent EKGs on record. PAST MEDICAL HISTORY: [place] esophagus Right breast invasive moderately differentiated carcinoma s/p lumpectomy with sentinel lymph node biopsy and intraoperative radiation 05/24/2017 Chronic Kidney disease Colon polyps Degenerative cervical disc Diverticulosis GERD (gastroesophageal reflux disease) Hemorrhoids Hypertension Hypothyroidism s/p thyroidectomy Rheumatoid arthritis PAST SURGICAL HISTORY: 3 sections Cholecystectomy Colonoscopy - 2014 EGD with biopsy - 2014 Shoulder surgery Thyroidectomy Tonsillectomy Right breast lumpectomy with sentinel lymph node biopsy and intraoperative radiation 05/24/2017 FAMILY HISTORY: Ms. Dobbs's mother is alive. Her father is . Ms. Dobbs has 2 sons: 2 alive. She has 1 daughter who is alive. SOCIAL HISTORY: Ms. Dobbs is . Occasional ETOH use She was a daily smoker who has smoked 1.0 pack/day for 30 years reports that she has quit smoking, now using E-cigarettes Patient update on day of discharge: Patient reports feeling much better, asking to be DC'd home denies chest pain, N/V sitting up eating chick jessica-a and drinking milkshake DS: Diagnosis - Discharge Diagnosis (1) Chest pain Status: Acute DS: Summary Hospital Course: Chest pain This is a 57-year-old female with a history of hypertension, hyperlipidemia, chronic low back pain, RA, [place] esophagus, Right breast cancer, Chronic Kidney disease, Colon polyps, Degenerative cervical disc, Diverticulosis, GERD, Hypertension, Hypothyroidism. Patient has history of lumbar surgery by neurosurgeon Dr. Servin in July of this year, recent admission for knee pain/ injury, and during this admission on 10/26/17 had a hemilaminectomy at L3-L4 with microdiscectomy performed by Dr. Servin, discharged home from rehab facility on 11/16/17, present for evaluation of nausea, vomiting, diarrhea, abdominal pain, and back pain. Patient reports her symptoms began the day she was discharged from the rehab facility. She states that she was given the flu vaccine prior to discharge. Patient was seen in the ER 11/20/17 for abdominal pain and vomiting then DC'd home. Patient returns to the ER today. She reports vomiting multiple times today. She also reports chest pain and back pain which started about 4 hours ago at rest. She denies shortness of breath, fever, cough, radiation of chest pain. Patient has been unable to tolerate oral medications except for methadone. - Initial troponin 0.08 - initial EKG reveals ST changes in V2, V3, V4, V5 and V6 potentially consistent with ischemic injury we also see T wave inversions in 1 and aVL of concern. These appear new since October 13, most recent EKGs on record. - Heparin drip started in ER - patient also given aspirin, metoprolol and nitroglycerin SL in the ER - ER provider placed call placed to the commutator inspector, Dr. Delcid - consult placed to Cardiology - NPO - cardiac telemetry - serial troponin - serial EKG - start patient on metoprolol 25 mg BID, aspirin daily and nitroglycerin paste Cardiac catheterization 11/23/[address] Noguera Coronary angiography: 1. Left main coronary is angiographically normal 2. Left anterior descending coronary has mild luminal irregularities 3. Left circumflex has 30% calcific stenosis in the mid to distal segment and gives rise to 3 obtuse marginal branches 4. Right coronary has mild luminal irregularities Conclusions: 1. Mild nonobstructive coronary disease Nausea/Vomiting concern for gastroparesis secondary to chronic narcotic use CT abd/pelvis with IV contrast 11/20/17 reviewed and reveals: 1. Unremarkable bowel gas pattern. 2. Status post cholecystectomy. 3. Mild hepatic steatosis. Zofran as needed for N/V repeat KUB ordered total bilirubin 0.3, AST 18, ALT 20, Alk Phos 101, Lipase 44 if N/V continue plan for GI consult once cleared by cardiology Narcotic dependency Patient follows with outpatient pain management, Dr. Katt Schulte recently stopped Duragesic patch and was started on methadone 10 mg PO TID 10/08 Patient asking for IV pain medication reports that she is allergic to morphine Start Dilaudid IV 0.2 mg Q6H as needed Depression/anxiety continue home Cymbalta Right breast cancer patient follows with Dr. Joyce outpatient invasive moderately differentiated carcinoma s/p lumpectomy with sentinel lymph node biopsy and intraoperative radiation 05/24/2017, with Dr. Chavez Continue anastrozole Hypertension home Lisinopril 40 mg daily and diltiazem 180 mg daily Hypothyroidism s/p thyroidectomy Patient follows outpatient with Dr. Mcduffie continue home levothyroxine 175 mcg daily GERD [place] Esophagitis patient follows outpatient with Dr. Rodrigez Continue patient's home Prilosec 20 mg BID Rheumatoid arthritis Continue home Leflunomide 20 mg daily, hydroxychloroquine DVT prophylaxis patient is currently on Heparin drip - Time Spent with Patient Total time spent providing and/or coordinating discharge services: Greater than 30 minutes - Quality: VTE Deep Vein Thrombosis/Pulmonary Embolism Present on Admission: No Exam Vital signs: Vital Signs 11/22/17 18:43 11/22/17 20:00 11/22/17 23:00 Temperature 98.4 F Pulse Rate 72 72 Respiratory Rate 17 14 Blood Pressure 130/74 Pulse Oximetry 97 11/23/17 00:00 11/23/17 03:00 11/23/17 04:00 Temperature 98.2 F 97.8 F Pulse Rate 69 67 69 Respiratory Rate 14 14 Blood Pressure 104/69 115/71 Pulse Oximetry 96 97 11/23/17 08:00 11/23/17 09:00 11/23/17 09:15 Temperature 98.4 F Pulse Rate 68 74 Respiratory Rate 16 Blood Pressure 127/75 Pulse Oximetry 94 L 97 Intake & Output 11/22/17 11/23/17 11/23/17 18:59 06:59 18:59 Intake Total 240 / 240 100 / 100 Output Total 0 / 0 Balance 240 / 240 100 / 100 Weight 71.668 kg 83.5 kg Intake: Oral 240 / 240 Anesthesia Amount 100 / 100 Output: Emesis 0 / 0 Other: # Voids 3 # Bowel Movements 0 Narrative: GENERAL: This is a well-nourished, well-developed patient, in no apparent distress. CARDIOVASCULAR: Regular rate and rhythm RESPIRATORY: Clear to auscultation. Breath sounds equal bilaterally. GASTROINTESTINAL: Abdomen soft, non-tender, nondistended. MUSCULOSKELETAL: Extremities without clubbing, cyanosis, or edema. NEURO: Alert & Oriented x4 to person, place, time, situation. Moves all ext x4 Results Procedures completed during hospitalization: Cardiac catheterization 11/23/[address] Noguera Labs on day of discharge: Labs from last 24 hours 11/23/17 11/23/17 11/23/17 06:10 06:10 06:10 WBC 8.4 RBC 4.54 Hgb 13.9 Hct 42.6 MCV 93.8 MCH 30.6 MCHC 32.6 RDW 16.4 Plt Count 164 MPV 10.7 APTT 49.8 H D Magnesium Total Creatine Kinase 75 Troponin I 0.06 H Triglycerides 186 H Cholesterol 176 LDL Cholesterol, Calc 98 HDL Cholesterol 40.6 Cholesterol/HDL Ratio 4.33 Urine Color Urine Clarity Urine pH Ur Specific [place] Urine Protein Urine Glucose (UA) Urine Ketones Urine Occult Blood Urine Nitrate Urine Bilirubin Urine Urobilinogen Ur Leukocyte Esterase Urine WBC Ur Squamous Epith Cells Micro UA Comment Ur Microscopic Review Urine Culture Comments Urine Opiates Screen Ur Barbiturates Screen Ur Amphetamines Screen U Benzodiazepines Scrn Urine Cocaine Screen U Cannabinoids Screen 11/22/17 11/22/17 11/22/17 22:11 22:11 16:20 WBC RBC Hgb Hct MCV MCH MCHC RDW Plt Count MPV APTT 38.3 H D Magnesium 1.8 Total Creatine Kinase 67 Troponin I 0.07 H Triglycerides Cholesterol LDL Cholesterol, Calc HDL Cholesterol Cholesterol/HDL Ratio Urine Color Yellow Urine Clarity Clear Urine pH 6.0 Ur Specific [place] 1.008 Urine Protein Negative Urine Glucose (UA) Negative Urine Ketones Trace H Urine Occult Blood Negative Urine Nitrate Negative Urine Bilirubin Negative Urine Urobilinogen Less than 2 Ur Leukocyte Esterase Negative Urine WBC 3 Ur Squamous Epith Cells <1 Micro UA Comment Culture not ind Ur Microscopic Review Not Reportable Urine Culture Comments Culture not ind Urine Opiates Screen Ur Barbiturates Screen Ur Amphetamines Screen U Benzodiazepines Scrn Urine Cocaine Screen U Cannabinoids Screen 11/22/17 16:20 WBC RBC Hgb Hct MCV MCH MCHC RDW Plt Count MPV APTT Magnesium Total Creatine Kinase Troponin I Triglycerides Cholesterol LDL Cholesterol, Calc HDL Cholesterol Cholesterol/HDL Ratio Urine Color Urine Clarity Urine pH Ur Specific [place] Urine Protein Urine Glucose (UA) Urine Ketones Urine Occult Blood Urine Nitrate Urine Bilirubin Urine Urobilinogen Ur Leukocyte Esterase Urine WBC Ur Squamous Epith Cells Micro UA Comment Ur Microscopic Review Urine Culture Comments Urine Opiates Screen Neg Ur Barbiturates Screen Neg Ur Amphetamines Screen Neg U Benzodiazepines Scrn Pos H Urine Cocaine Screen Neg U Cannabinoids Screen Neg - Impressions ITS Impressions Abdomen X-Ray 11/22/17 00:00 CONCLUSION: No obstruction. Chest X-Ray 11/22/17 11:46 CONCLUSION: No acute cardiopulmonary disease <Ceferino Diaz B - Last Filed: 11/30/17 09:28> Date of admission: 11/22/17 14:14 Primary care physician: Juhi Dc DS: Diagnosis - Discharge Diagnosis (1) Chest pain Status: Acute DS: Summary Hospital Course: The exam, history, and the medical decision-making described in the above note were completed with the assistance of the mid-level provider. I reviewed and agree with the findings presented. I attest that I had a [id number] encounter with the patient on the same day, and personally performed and documented my assessment and findings in the medical record. Patient examined. Assessment and plan formulated with Tiffany Cano PA-C. I agree with the above. - Time Spent with Patient Total time spent providing and/or coordinating discharge services: Greater than 30 minutes Results - Impressions ITS Impressions Abdomen X-Ray 11/22/17 00:00 CONCLUSION: No obstruction. Chest X-Ray 11/22/17 11:46 CONCLUSION: No acute cardiopulmonary disease Discharge Plan - Discharge Order Discharge Orders: Discharge Order (Routine); Ordered 11/23/17 Ordered By: Tiffany Cano - Discharge Details Anticipated Discharge Date: 11/23/17 - Physicians Team Attending Provider: Ceferino Diaz
[2017-11-23 14:33] VITALS: O2SAT 98
[2017-11-23 15:58] VITALS: BP 123/75; PULSE 79; RESP 17
[2017-11-23] MEDS ORDERED: Iohexol 350 MG/ML 50 ML Vial (for Cath Lab) IV.SIG ONE (16:08)
--- NOTE | 2017-11-23 19:45 | ECG ---
Date Performed: 11/23/2017 Time Performed: 02:03:18 PTAGE: 57 years EKG: Sinus rhythm . Prolonged QT interval Possible left anterior fascicular block Extensive T wave changes may be due t o myocardial ischemia Abnormal ECG PREVIOUS TRACING : 11/22/2017 11.28 Since the previous tracing, no significant change noted DOCTOR: Lazaro Walker Interpretating Date/Time 11/23/2017 19:44:28
--- NOTE | 2017-11-23 21:33 | ECG ---
Date Performed: 11/22/2017 Time Performed: 11:28:25 PTAGE: 57 years EKG: Sinus rhythm MARKED LEFT AXIS DEVIATION PATTERN CONSISTENT WITH PULMONARY DISEASE MARKED T-WAVE ABNORMALITY, CONS IDER ANTEROLATERAL ISCHEMIA ABNORMAL ECG INTERPRETATION BASED ON A DEFAULT AGE OF 40 YEARS PREVIOUS TRACING : 10/13/2017 22.59 Compared to previous tracing, ST-T ABNORMALITIES ARE NEW DOCTOR: Lazaro Walker Interpretating Date/Time 11/23/2017 21:32:26
== END 2017-11-23 16:09 | disposition home or self-care (01) ==
LOC: NEPE 11:06 → NEDA 14:14 → HCPC 17:30
PROVIDERS: ADMIT Hospitalist; ATTEND Hospitalist

== ENCOUNTER 2018-01-10 12:06 | Inpatient (IN) ==
[2018-01-10] MEDS ORDERED: HYDROmorphone PF Inj 2 MG/ML Vial IV.PUSH ONE ×2 (13:12→13:48)
--- NOTE | 2018-01-10 13:41 | ED ---
HPI General Chief Complaint: Back Pain/Injury Stated Complaint: Back/Leg Pain Complaint Time Seen by Provider: 01/10/18 12:54 Source: patient Mode of arrival: ambulatory Limitations: no limitations History of Present Illness HPI Narrative: 57 yo F c/o low back pain, severe, constant, duration has been weeks, gradually worsening. Pt scheduled for back surgery tomorrow with Dr Servin. No fever/chills. Pt complains of bilateral lower extremity pain and swelling with erythema and was scheduled to undergo preop evaluation today however could not make it to the lab for blood draw or for US of lower extremities. No interval injury with back. No saddle anesthesia. No fecal incontinence. No overflow urinary incontinence. MD Complaint: Reports back pain Onset (ago): hour(s) Duration: Reports constant Similar Symptoms Previously: Yes Location: Reports right lower back and left lower back Severity: severe Related Data Home Medications Medication Instructions Recorded Confirmed methadone 10 mg PO Q12H 11/23/17 01/10/18 anastrozole 1 mg PO DAILY 01/06/18 01/10/18 bupropion HCl 300 mg PO QAM 01/06/18 01/10/18 celecoxib 200 mg PO DAILY 01/06/18 01/10/18 cholecalciferol (vitamin D3) 5,000 unit PO DAILY 01/06/18 01/10/18 [Vitamin D3] clonidine HCl 0.1 mg PO BID 01/06/18 01/10/18 diazepam 5 mg PO TID-QID PRN 01/06/18 01/10/18 diltiazem HCl 180 mg PO DAILY 01/06/18 01/10/18 duloxetine 120 mg PO DAILY 01/06/18 01/10/18 furosemide 20 mg PO DAILY 01/06/18 01/10/18 hydroxychloroquine 200 mg PO BID 01/06/18 01/10/18 leflunomide 20 mg PO DAILY 01/06/18 01/10/18 levothyroxine 175 mcg PO DAILY 01/06/18 01/10/18 lisinopril 40 mg PO DAILY 01/06/18 01/10/18 methylprednisolone 4 mg PO DAILY 01/06/18 01/10/18 pantoprazole 40 mg PO DAILY 01/06/18 01/10/18 simvastatin 20 mg PO QPM 11/25/18 11/29/18 sucralfate 1 g PO Q6H 01/06/18 01/10/18 Previous Rx's Medication Instructions Recorded pregabalin [Lyrica] 75 mg PO BID #60 cap 11/16/17 sennosides-docusate sodium [Senna 1 tab PO BID #14 tab 11/16/17 Plus] zolpidem 5 mg PO HS PRN #30 tab 11/16/17 ondansetron [Zofran ODT] 4 mg PO Q8H #20 tab 11/20/17 Allergies Allergy/AdvReac Type Severity Reaction Status Date / Time adhesive Allergy Severe Generalized Verified 01/06/18 20:12 Rash clarithromycin Allergy Severe Rash Verified 01/06/18 20:12 codeine Allergy Severe ITCHING Verified 01/06/18 20:12 latex Allergy Severe RASH Verified 01/06/18 20:12 morphine Allergy Severe SOB, RASH Verified 01/06/18 20:12 SWELLING methotrexate Allergy Intermediate ELEVATED Verified 01/06/18 20:12 LIVER ENZYMES. Review of Systems ROS: all other systems reviewed are negative [facility] Social History Social History Substance History: No History of Abuse Second Hand Smoke Exposure: Yes Smoking Status: Former smoker Tobacco Type: Cigarettes How Often Do You Have a Drink Containing Alcohol: Never Recent Travel in [facility] within the Last 8 Weeks: No Recent Out of Country Travel within the Last 8 Weeks: No Immunization History Tetanus Immunization: Unsure Tetanus Immunization Year if Known: 2013 Exam Narrative Exam Narrative: GENERAL: 57 yo F, WNWD, pleasant, severe distress 2/2 pain SKIN: Focused skin assessment warm/dry. HEAD: Atraumatic. Normocephalic. EYES: Pupils equal and round. No scleral icterus. No injection or drainage. ENT: No nasal bleeding or discharge. Mucous membranes pink and moist. NECK: Trachea midline. No JVD. CARDIOVASCULAR: Regular rate and rhythm. No murmur appreciated. RESPIRATORY: No accessory muscle use. Clear to auscultation. Breath sounds equal bilaterally. GASTROINTESTINAL: Abdomen soft, non-tender, nondistended. Hepatic and splenic margins not palpable. MUSCULOSKELETAL: Erythema bilateral lower extremities with 2+ pitting edema bilaterally. Minimal warmth bilateral lower extremities, equal bilaterally. Diffuse tenderness to light palpation lumbar back. NEUROLOGICAL: Awake and alert. No obvious cranial nerve deficits. Motor grossly within normal limits. Normal speech. PSYCHIATRIC: Appropriate mood and affect; insight and judgment normal. Course Initial Documented Vital Signs Temperature 98.9 F 01/10/18 12:24 Pulse Rate 85 01/10/18 12:24 Respiratory Rate 21 01/10/18 12:24 Blood Pressure 191/84 H 01/10/18 12:24 Pulse Oximetry 98 01/10/18 12:24 Last Documented Vital Signs Temperature 97.9 F 01/14/18 04:00 Pulse Rate 79 01/14/18 04:00 Respiratory Rate 19 01/14/18 04:00 Blood Pressure 142/66 H 01/14/18 04:00 Pulse Oximetry 95 01/14/18 04:00 Critical Care Time Critical Care Time: Yes Total Critical Care Time: 35 Attestation: Aggregate critical care time was 35 minutes. Time to perform other separately billable procedures was not included in the critical care time. My time did not include minutes spent treating any other patients simultaneously or on activities that did not directly contribute to the patient's treatment. The services I provided to this patient were to treat and/or prevent clinically significant deterioration that could result in: Hypoxia, intractable pain I provided critical care services requiring my management, as noted below: Chart data review, documentation time, medication orders and management, vital sign assessments/reviewing monitor data, ordering and reviewing lab tests, ordering and interpreting/reviewing x-rays and diagnostic studies, care of the patient and discussion of the patient with the admitting physicians. Medical Decision Making MDM Narrative Medical decision making narrative: The patient received 1 mg of hydromorphone without improvement. A second 1mg dose administered. No improvement reported 25 minutes later. Ketamine ordered. RN reported that pt was asleep upon entering the room to administer ketamine so it was withheld. The patient's workup today reveals hgb of 9.9, slightly lower than priors. d/w Dr Diaz for [facility] service. Medical Screen Exam Complete: Yes Emergency Medical Condition: Yes Lab Data Lab results reviewed: Yes I reviewed the patient's lab results. Result diagrams: 01/13/18 11:30 01/13/18 11:30 Lab Results 01/10/18 01/10/18 01/10/18 Range/Units 13:26 13:26 13:26 WBC 6.6 (4.0-11.0) th/mm3 RBC 3.88 L (4.00-5.30) mil/mm3 Hgb 11.8 (11.6-15.3) gm/dL Hct 35.9 (35.0-46.0) % MCV 92.7 (80.0-100.0) fL MCH 30.4 (27.0-34.0) pg MCHC 32.8 (32.0-36.0) % RDW 15.7 (11.6-17.2) % Plt Count 185 (150-450) th/mm3 MPV 10.1 (7.0-11.0) fL Neut % (Auto) 63.6 (16.0-70.0) % Lymph % (Auto) 18.7 (9.0-44.0) % [place] % (Auto) 13.3 H (0.0-8.0) % Eos % (Auto) 3.6 (0.0-4.0) % Baso % (Auto) 0.8 (0.0-2.0) % Neut # (Auto) 4.2 (1.8-7.7) th/mm3 Lymph # (Auto) 1.2 (1.0-4.8) th/mm3 [place] # (Auto) 0.9 (0.0-0.9) th/mm3 Eos # (Auto) 0.2 (0.0-0.4) th/mm3 Baso # (Auto) 0.1 (0.0-0.2) th/mm3 WBC Differential . Differential Comment Auto diff final PT 9.6 L (9.8-11.6) sec INR 0.9 Ratio APTT 34.1 H (23.4-31.7) sec Sodium 140 (136-145) meq/L Potassium 3.9 (3.5-5.1) meq/L Chloride 103 (98-107) meq/L Carbon Dioxide 30.7 (21.0-32.0) meq/L Anion Gap 6 (5-15) meq/L BUN 19 H (7-18) mg/dL Creatinine 0.81 (0.50-1.00) mg/dL Estimated GFR 73 L (>89) mL/min Random Glucose 98 (74-106) mg/dL Calcium 8.3 L (8.5-10.1) mg/dL Calcium Adj for Albumin (8.5-10.1) mg/dL Magnesium 2.4 (1.5-2.5) mg/dL Total Bilirubin 0.5 (0.2-1.0) mg/dL AST 32 (15-37) U/L ALT 26 (10-53) U/L Alkaline Phosphatase 105 (45-117) U/L Total Protein 7.6 (6.4-8.2) g/dL Albumin 3.8 (3.4-5.0) g/dL Urine Color (Yellw/Straw) Urine Clarity (Clear) Urine pH (5.0-8.5) Ur Specific [place] (1.002-1.035) Urine Protein (Neg-Trace) mg/dL Urine Glucose (UA) (Negative) mg/dL Urine Ketones (Negative) mg/dL Urine Occult Blood (Negative) Urine Nitrate (Negative) Urine Bilirubin (Negative) Urine Urobilinogen (Less than 2) mg/dL Ur Leukocyte Esterase (Negative) Urine RBC (0-3) /hpf Urine WBC (0-5) /hpf Ur Squamous Epith Cells (0-5) /hpf Urine Mucus (Occasional) /lpf Micro UA Comment Ur Microscopic Review Urine Culture Comments 01/10/18 01/11/18 01/11/18 Range/Units 21:50 17:00 17:00 WBC 6.3 (4.0-11.0) th/mm3 RBC 3.25 L (4.00-5.30) mil/mm3 Hgb 9.9 L (11.6-15.3) gm/dL Hct 30.1 L (35.0-46.0) % MCV 92.7 (80.0-100.0) fL MCH 30.6 (27.0-34.0) pg MCHC 33.0 (32.0-36.0) % RDW 15.2 (11.6-17.2) % Plt Count 163 (150-450) th/mm3 MPV 10.4 (7.0-11.0) fL Neut % (Auto) 64.6 (16.0-70.0) % Lymph % (Auto) 23.7 (9.0-44.0) % [place] % (Auto) 10.0 H (0.0-8.0) % Eos % (Auto) 0.9 (0.0-4.0) % Baso % (Auto) 0.8 (0.0-2.0) % Neut # (Auto) 4.1 (1.8-7.7) th/mm3 Lymph # (Auto) 1.5 (1.0-4.8) th/mm3 [place] # (Auto) 0.6 (0.0-0.9) th/mm3 Eos # (Auto) 0.1 (0.0-0.4) th/mm3 Baso # (Auto) 0.0 (0.0-0.2) th/mm3 WBC Differential . Differential Comment Auto diff final PT (9.8-11.6) sec INR Ratio APTT (23.4-31.7) sec Sodium 141 (136-145) meq/L Potassium 4.0 (3.5-5.1) meq/L Chloride 106 (98-107) meq/L Carbon Dioxide 29.4 (21.0-32.0) meq/L Anion Gap 6 (5-15) meq/L BUN 13 (7-18) mg/dL Creatinine 0.62 (0.50-1.00) mg/dL Estimated GFR Greater than 89 (>89) mL/min Random Glucose 103 (74-106) mg/dL Calcium 7.5 L D (8.5-10.1) mg/dL Calcium Adj for Albumin (8.5-10.1) mg/dL Magnesium 2.1 (1.5-2.5) mg/dL Total Bilirubin (0.2-1.0) mg/dL AST (15-37) U/L ALT (10-53) U/L Alkaline Phosphatase (45-117) U/L Total Protein (6.4-8.2) g/dL Albumin (3.4-5.0) g/dL Urine Color Straw (Yellw/Straw) Urine Clarity Clear (Clear) Urine pH 7.0 (5.0-8.5) Ur Specific [place] 1.006 (1.002-1.035) Urine Protein Negative (Neg-Trace) mg/dL Urine Glucose (UA) Negative (Negative) mg/dL Urine Ketones Trace H (Negative) mg/dL Urine Occult Blood Negative (Negative) Urine Nitrate Negative (Negative) Urine Bilirubin Negative (Negative) Urine Urobilinogen Less than 2 (Less than 2) mg/dL Ur Leukocyte Esterase Negative (Negative) Urine RBC (0-3) /hpf Urine WBC 1 (0-5) /hpf Ur Squamous Epith Cells 1 (0-5) /hpf Urine Mucus (Occasional) /lpf Micro UA Comment Culture not ind Ur Microscopic Review Not Reportable Urine Culture Comments Culture not ind 01/11/18 01/12/18 01/13/18 Range/Units 17:00 18:34 11:30 WBC 8.5 (4.0-11.0) th/mm3 RBC 3.37 L (4.00-5.30) mil/mm3 Hgb 10.3 L (11.6-15.3) gm/dL Hct 31.2 L (35.0-46.0) % MCV 92.6 (80.0-100.0) fL MCH 30.6 (27.0-34.0) pg MCHC 33.1 (32.0-36.0) % RDW 15.2 (11.6-17.2) % Plt Count 149 L (150-450) th/mm3 MPV 11.5 H (7.0-11.0) fL Neut % (Auto) 72.7 H (16.0-70.0) % Lymph % (Auto) 13.2 (9.0-44.0) % [place] % (Auto) 10.9 H (0.0-8.0) % Eos % (Auto) 2.4 (0.0-4.0) % Baso % (Auto) 0.8 (0.0-2.0) % Neut # (Auto) 6.2 (1.8-7.7) th/mm3 Lymph # (Auto) 1.1 (1.0-4.8) th/mm3 [place] # (Auto) 0.9 (0.0-0.9) th/mm3 Eos # (Auto) 0.2 (0.0-0.4) th/mm3 Baso # (Auto) 0.1 (0.0-0.2) th/mm3 WBC Differential . Differential Comment Auto diff final PT (9.8-11.6) sec INR Ratio APTT (23.4-31.7) sec Sodium (136-145) meq/L Potassium (3.5-5.1) meq/L Chloride (98-107) meq/L Carbon Dioxide (21.0-32.0) meq/L Anion Gap (5-15) meq/L BUN (7-18) mg/dL Creatinine (0.50-1.00) mg/dL Estimated GFR (>89) mL/min Random Glucose (74-106) mg/dL Calcium 7.8 L (8.5-10.1) mg/dL Calcium Adj for Albumin 10.6 H (8.5-10.1) mg/dL Magnesium (1.5-2.5) mg/dL Total Bilirubin (0.2-1.0) mg/dL AST (15-37) U/L ALT (10-53) U/L Alkaline Phosphatase (45-117) U/L Total Protein (6.4-8.2) g/dL Albumin 3.0 L D (3.4-5.0) g/dL Urine Color Yellow (Yellw/Straw) Urine Clarity Clear (Clear) Urine pH 7.0 (5.0-8.5) Ur Specific [place] 1.010 (1.002-1.035) Urine Protein Negative (Neg-Trace) mg/dL Urine Glucose (UA) Negative (Negative) mg/dL Urine Ketones 80 or greater H (Negative) mg/dL Urine Occult Blood Negative (Negative) Urine Nitrate Negative (Negative) Urine Bilirubin Negative (Negative) Urine Urobilinogen Less than 2 (Less than 2) mg/dL Ur Leukocyte Esterase Negative (Negative) Urine RBC Less than 1 (0-3) /hpf Urine WBC 2 (0-5) /hpf Ur Squamous Epith Cells 1 (0-5) /hpf Urine Mucus Few H (Occasional) /lpf Micro UA Comment Culture not ind Ur Microscopic Review Not Reportable Urine Culture Comments Culture not ind 01/13/18 Range/Units 11:30 WBC (4.0-11.0) th/mm3 RBC (4.00-5.30) mil/mm3 Hgb (11.6-15.3) gm/dL Hct (35.0-46.0) % MCV (80.0-100.0) fL MCH (27.0-34.0) pg MCHC (32.0-36.0) % RDW (11.6-17.2) % Plt Count (150-450) th/mm3 MPV (7.0-11.0) fL Neut % (Auto) (16.0-70.0) % Lymph % (Auto) (9.0-44.0) % [place] % (Auto) (0.0-8.0) % Eos % (Auto) (0.0-4.0) % Baso % (Auto) (0.0-2.0) % Neut # (Auto) (1.8-7.7) th/mm3 Lymph # (Auto) (1.0-4.8) th/mm3 [place] # (Auto) (0.0-0.9) th/mm3 Eos # (Auto) (0.0-0.4) th/mm3 Baso # (Auto) (0.0-0.2) th/mm3 WBC Differential Differential Comment PT (9.8-11.6) sec INR Ratio APTT (23.4-31.7) sec Sodium 137 (136-145) meq/L Potassium 3.7 (3.5-5.1) meq/L Chloride 103 (98-107) meq/L Carbon Dioxide 28.1 (21.0-32.0) meq/L Anion Gap 6 (5-15) meq/L BUN 8 (7-18) mg/dL Creatinine 0.61 (0.50-1.00) mg/dL Estimated GFR Greater than 89 (>89) mL/min Random Glucose 78 (74-106) mg/dL Calcium 8.0 L (8.5-10.1) mg/dL Calcium Adj for Albumin (8.5-10.1) mg/dL Magnesium 1.8 (1.5-2.5) mg/dL Total Bilirubin (0.2-1.0) mg/dL AST (15-37) U/L ALT (10-53) U/L Alkaline Phosphatase (45-117) U/L Total Protein (6.4-8.2) g/dL Albumin (3.4-5.0) g/dL Urine Color (Yellw/Straw) Urine Clarity (Clear) Urine pH (5.0-8.5) Ur Specific [place] (1.002-1.035) Urine Protein (Neg-Trace) mg/dL Urine Glucose (UA) (Negative) mg/dL Urine Ketones (Negative) mg/dL Urine Occult Blood (Negative) Urine Nitrate (Negative) Urine Bilirubin (Negative) Urine Urobilinogen (Less than 2) mg/dL Ur Leukocyte Esterase (Negative) Urine RBC (0-3) /hpf Urine WBC (0-5) /hpf Ur Squamous Epith Cells (0-5) /hpf Urine Mucus (Occasional) /lpf Micro UA Comment Ur Microscopic Review Urine Culture Comments Imaging Data Radiologist's impression: Venous Doppler Study 01/10/18 13:12 CONCLUSION: 1. The study is negative for bilateral lower extremity deep venous thrombosis. Lumbar Spine X-Ray 01/11/18 00:00 CONCLUSION: 1. Unilateral left-sided fusion hardware is noted at L3 and L4. 2. Disc implants are also noted at L3-4, L4-5 and L5-S1. 3. Stable mild to moderate compression deformity involving L4. Chest X-Ray 01/12/18 00:00 CONCLUSION: Scattered pulmonary infiltrates bilaterally consistent with mild pulmonary vascular congestion versus pneumonia. Clinical correlation is recommended. Venous Doppler Study 01/12/18 00:00 CONCLUSION: 1. The study is negative for lower extremity deep venous thrombosis. Chest X-Ray 01/13/18 00:00 CONCLUSION: 1. Stable mild patchy infiltrate in the right lung base. 2. Mild pulmonary venous congestion. Discharge Plan Discharge Disposition Patient Disposition: Discharge Home Discharge Condition Condition: Stable Discharge Details Diagnosis: Lumbar spinal stenosis Physicians Team ED Provider: Sanjay Lane Primary Care Provider: Juhi Cooper Attending Provider: Ceferino Diaz Other Providers: Adam Servin Status ED Status: Left Department Discharge Information Discharge Date/Time: 01/10/18 19:15
[2018-01-10 13:43] LABS: Activated Partial Thrombo Time 34.1 sec (23.4-31.7); INR 0.9 Ratio; Prothrombin Time 9.6 sec (9.8-11.6)
[2018-01-10 13:49] LABS: Baso # (Auto) 0.1 th/mm3 (0.0-0.2); Baso % (Auto) 0.8 % (0.0-2.0); Eos # (Auto) 0.2 th/mm3 (0.0-0.4); Eos % (Auto) 3.6 % (0.0-4.0); Hematocrit 35.9 % (35.0-46.0); Hemoglobin 11.8 gm/dL (11.6-15.3); Lymph # (Auto) 1.2 th/mm3 (1.0-4.8); Lymph % (Auto) 18.7 % (9.0-44.0); Mean Corpuscular HGB Conc 32.8 % (32.0-36.0); Mean Corpuscular Hemoglobin 30.4 pg (27.0-34.0); Mean Corpuscular Volume 92.7 fL (80.0-100.0); Mean Platelet Volume 10.1 fL (7.0-11.0); Mono # (Auto) 0.9 th/mm3 (0.0-0.9); Mono % (Auto) 13.3 % (0.0-8.0); Neut # (Auto) 4.2 th/mm3 (1.8-7.7); Neut % (Auto) 63.6 % (16.0-70.0); Platelet Count 185 th/mm3 (150-450); Red Blood Count 3.88 mil/mm3 (4.00-5.30); Red Cell Distribution Width 15.7 % (11.6-17.2); White Blood Count 6.6 th/mm3 (4.0-11.0)
[2018-01-10 13:53] LABS: Alanine Aminotransferase 26 U/L (10-53); Albumin 3.8 g/dL (3.4-5.0); Anion Gap 6 meq/L (5-15); Aspartate Aminotransferase 32 U/L (15-37); Blood Urea Nitrogen 19 mg/dL (7-18); Calcium 8.3 mg/dL (8.5-10.1); Carbon Dioxide 30.7 meq/L (21.0-32.0); Chloride 103 meq/L (98-107); Glomerular Filtration Rate 73 mL/min (>89); Glucose,Random 98 mg/dL (74-106); Magnesium 2.4 mg/dL (1.5-2.5); Potassium 3.9 meq/L (3.5-5.1); Sodium 140 meq/L (136-145)
[2018-01-10 13:55] LABS: Alkaline Phosphatase 105 U/L (45-117); Total Protein 7.6 g/dL (6.4-8.2)
--- NOTE | 2018-01-10 14:15 | US ---
EXAM DATE: 01/10/2018 2:12 PM EST AGE/SEX: 57 years / Female INDICATIONS: Leg swelling and pain. CLINICAL DATA: This is the patient's initial encounter. Patient reports that signs and symptoms have been present for 1 day and indicates a pain score of 10/10. MEDICAL/SURGICAL HISTORY: Gastroesophageal reflux disease. Hypertension. Hypothyroidism. Rig ht breast cancer. Left knee pain. Left foot drop. Mastectomy, right. section. Thyroidecto my. Back surgery. Right shoulder surgery. Cholecystectomy. Tonsillectomy. COMPARISON: [facility], US LEG RIGHT VENOUS DOPPLER, 04/08/2017. . TECHNIQUE: Venous ultrasound of both lower extremities was performed from the inguinal ligament to t he proximal calf. Real-time, color Doppler and spectral tracing, compression and augmentation techni ques were used. FINDINGS: Right Leg: Normal compression of the deep venous system from the inguinal region to the proximal michael f. No echogenic clot is seen. Normal response of the venous system to augmentation and respiration. Left Leg: Normal compression of the deep venous system from the inguinal region to the proximal calf . No echogenic clot is seen. Normal response of the venous system to augmentation and respiration. Other: None. CONCLUSION: 1. The study is negative for bilateral lower extremity deep venous thrombosis. Electronically signed by: Sanjay Espino MD 01/10/2018 2:14 PM EST
[2018-01-10] MEDS ORDERED: Ketamine Inj 50 MG/5 ML Syringe IV.PUSH ONE (14:32)
[2018-01-10] MEDS ORDERED: Acetaminophen 325 MG Tablet PO PRN (15:16)
--- NOTE | 2018-01-10 16:09 | P.HPIM ---
History of Present Illness Primary Care Physician: Juhi Cooper MD History of Present Illness: Mrs. Dobbs is a 57 y/o female with hypertension, hyperlipidemia, chronic low back pain, RA, [place] esophagus, right breast cancer, CKD, degenerative cervical disc, hypothyroidism s/p thyroidectomy who presented to the ED for evaluation of severe low back pain. This has reportedly been going on for a few weeks and has been gradually worsening with associated radiation of the pain down the back on bilateral LE. Pt is reportedly scheduled for back surgery tomorrow with Dr Servin for an L3-4 fusion with scar tissue and hardware removal from L4-S1. She was scheduled to undergo preop evaluation today however could not make it to the lab for blood draw or for US of lower extremities. No interval injury with back. No saddle anesthesia. No fecal incontinence. No urinary incontinence. The patient previously underwent an L5- S1 lumbar fusion in July [address] Servin. She was then admitted for knee pain /injury in 10/2017 and on 10/26/17 underwent a hemilaminectomy at L3-L4 with microdiscectomy performed by Dr. Servin, discharged home from rehab facility on 11/16/17. [place] [facility] [place] in [place]2017 for evaluation of nausea, vomiting, diarrhea, abdominal pain, and back pain. She was noted to have a mild elevation in her troponin and was noted to have ST changes in V2 V3 potentially consistent with ischemic injury and T wave inversions in 1 and aVL of concern. Pt was seen by Cardiology and underwent cardiac catheterization 01/[address] Noguera which noted mild nonobstructive coronary disease. Pt evaluated in the ED and is quite painful and tearful. She received IV Dilaudid 1mg x 2 doses in the ED without any relief of her pain. She had a bilateral LE US which were negative for DVT. Her BP is elevated in the ED likely related to pain. She denies any chest pain, SOB, palpitations, dizziness , weakness, nausea/vomiting, or diarrhea. PAST MEDICAL HISTORY: [place] esophagus Right breast invasive moderately differentiated carcinoma s/p lumpectomy with sentinel lymph node biopsy and intraoperative radiation 05/24/2017 Chronic Kidney disease Colon polyps Degenerative cervical disc Diverticulosis GERD (gastroesophageal reflux disease) Hemorrhoids Hypertension Hypothyroidism s/p thyroidectomy Rheumatoid arthritis PAST SURGICAL HISTORY: 3 sections Cholecystectomy Colonoscopy - 2014 EGD with biopsy - 2015 Shoulder surgery Thyroidectomy Tonsillectomy Right breast lumpectomy with sentinel lymph node biopsy and intraoperative radiation 05/24/2017 FAMILY HISTORY: Ms. Dobbs's mother is alive. Her father is . Ms. Dobbs has 2 sons: 2 alive. She has 1 daughter who is alive. SOCIAL HISTORY: Ms. Dobbs is . Occasional ETOH use She was a daily smoker who has smoked 1.0 pack/day for 30 years reports that she has quit smoking, now using E-cigarettes Diagnosis (1) Intractable back pain: (2) Lumbar disc herniation with radiculopathy: (3) Lumbar spinal stenosis: (4) Breast cancer: (5) HTN (hypertension): (6) Chronic GERD: Inpatient Certification Inpatient Certification: I certify that the inpatient services were ordered in accordance with Medicare regulations governing the order. This includes certification that hospital inpatient services are reasonable and necessary and in the case of services not specified as inpatient-only under 42 CFR 419.22(n), that they are appropriately provided as inpatient services in accordance to with the 2-midnight benchmark under 43 CFR 412.3(e) Estimated Total Length of Stay (Days): 3 Plans for Post Hospital Care: Not yet determined Medications and Allergies Allergies Allergy/AdvReac Type Severity Reaction Status Date / Time adhesive Allergy Severe Generalized Verified 01/06/18 20:12 Rash clarithromycin Allergy Severe Rash Verified 01/06/18 20:12 codeine Allergy Severe ITCHING Verified 01/06/18 20:12 latex Allergy Severe RASH Verified 01/06/18 20:12 morphine Allergy Severe SOB, RASH Verified 01/06/18 20:12 SWELLING methotrexate Allergy Intermediate ELEVATED Verified 01/06/18 20:12 LIVER ENZYMES. Home Medications Medication Instructions Recorded Confirmed Type methadone 10 mg PO Q12H 11/23/17 01/10/18 History anastrozole 1 mg PO DAILY 01/06/18 01/10/18 History bupropion HCl 300 mg PO QAM 01/06/18 01/10/18 History celecoxib 200 mg PO DAILY 01/06/18 01/10/18 History cholecalciferol (vitamin D3) 5,000 unit PO DAILY 01/06/18 01/10/18 History [Vitamin D3] clonidine HCl 0.1 mg PO BID 01/06/18 01/10/18 History diazepam 5 mg PO TID-QID PRN 01/06/18 01/10/18 History diltiazem HCl 180 mg PO DAILY 01/06/18 01/10/18 History duloxetine 120 mg PO DAILY 01/06/18 01/10/18 History furosemide 20 mg PO DAILY 01/06/18 01/10/18 History hydroxychloroquine 200 mg PO BID 01/06/18 01/10/18 History leflunomide 20 mg PO DAILY 01/06/18 01/10/18 History levothyroxine 175 mcg PO DAILY 01/06/18 01/10/18 History lisinopril 40 mg PO DAILY 01/06/18 01/10/18 History methylprednisolone 4 mg PO DAILY 01/06/18 01/10/18 History pantoprazole 40 mg PO DAILY 01/06/18 01/10/18 History simvastatin 20 mg PO QPM 01/06/18 01/10/18 History sucralfate 1 g PO Q6H 01/06/18 01/10/18 History Active Medications: Active Medications Acetaminophen (Tylenol) 650 mg PO Q4H PRN PRN Reason: Temp > 100.4 Al Hydroxide/Mg Hydroxide (Milk Of Magnesia Liq) 30 ml PO Q12H PRN PRN Reason: Mild Constipation Anastrozole (Arimidex) 1 mg PO DAILY [facility] Clonidine HCl (Clonidine (Nicu) 20 Mcg/Ml Liq) 100 mcg PO BID [facility] Duloxetine HCl (Cymbalta) 120 mg PO DAILY [facility] Furosemide (Lasix) 20 mg PO DAILY [facility] Hydroxychloroquine Sulfate (Plaquenil) 200 mg PO BID [facility] Methadone HCl (Dolophine) 10 mg PO Q12H [facility] Methylprednisolone (Medrol) 4 mg PO DAILY [facility] Non-Formulary Medication (Diltiazem Hcl [Diltiazem Hcl]) 180 mg PO DAILY [facility] Non-Formulary Medication (Leflunomide [Leflunomide]) 20 mg PO DAILY [facility] Non-Formulary Medication (Levothyroxine [Levothyroxine]) 175 mcg PO DAILY [facility] Non-Formulary Medication (Lisinopril [Lisinopril]) 40 mg PO DAILY [facility] Non-Formulary Medication (Simvastatin [Simvastatin]) 20 mg PO QPM [facility] Non-Formulary Medication (Bupropion Hcl [Bupropion Hcl]) 300 mg PO QAM [facility] Ondansetron HCl (Zofran Inj) 4 mg IV.PUSH Q6H PRN PRN Reason: NAUSEA OR VOMITING Pantoprazole Sodium (Protonix) 40 mg PO DAILY [facility] Senna/Docusate Sodium (Alicia-Colace) 1 tab PO BID [facility] Senna/Docusate Sodium (Alicia-Colace) 1 tab PO BID [facility] Sodium Chloride (Ns Flush) 2 ml IV.FLUSH BID [facility] Sodium Chloride (Ns Flush) 2 ml IV.FLUSH PRN PRN PRN Reason: FLUSH AFTER USING IV ACCESS Physical Exam Vital signs: Last Vital Signs Temp 98.9 F 01/10/18 12:24 Pulse 98 H 01/10/18 15:23 Resp 18 01/10/18 15:23 BP 191/87 H 01/10/18 15:23 Pulse Ox 96 01/10/18 15:23 Narrative: GENERAL: Pt appears painful and writhing in pain on the gurney in the ED. SKIN: Warm and dry. HEENT: Atraumatic. Normocephalic. Pupils equal and round. No scleral icterus. No injection or drainage. No nasal bleeding or discharge. Mucous membranes pink and moist. NECK: Trachea midline. No JVD. CARDIO: Regular rate and rhythm. RESP: No accessory muscle use. Clear to auscultation. Breath sounds equal bilaterally. ABD: +BS, soft, non-tender, nondistended. Hepatic and splenic margins not palpable. EXT: Extremities without clubbing, cyanosis, or edema. No obvious deformities. NEURO: Awake and alert. No obvious cranial nerve deficits. Motor grossly within normal limits. Five out of 5 muscle strength in the arms and legs. Normal speech. PSYCH: Anxious, insight and judgment normal. Results Labs CBC & Chem 7: 01/10/18 13:26 01/10/18 13:26 Imaging Venous Doppler Study 01/10/18 13:12 CONCLUSION: 1. The study is negative for bilateral lower extremity deep venous thrombosis. Caprini VTE Risk Assessment Caprini VTE Risk Assessment: Moderate/High Risk (score >= 2) Caprini Risk Assessment Model: Point Value = 1 Point Value = 2 Point Value = 3 Point Value = 5 Age 41-60 Minor surgery BMI > 25 kg/m2 Swollen legs Varicose veins or History of unexplained or recurrent spontaneous Oral contraceptives or hormone replacement Sepsis (< 1 month) Serious lung disease, including pneumonia (< 1 month) Abnormal pulmonary function Acute myocardial infarction Congestive heart failure (< 1 month) History of inflammatory bowel disease Medical patient at bed rest Age 61-74 Arthroscopic surgery Major open surgery (> 45 min) Laparoscopic surgery (> 45 min) Malignancy Confined to bed (> 72 hours) Immobilizing plaster cast Central venous access Age >= 75 History of VTE Family history of VTE Factor V Leiden Prothrombin [id number] Lupus anticoagulant Anticardiolipin antibodies Elevated serum homocysteine Heparin-induced thrombocytopenia Other congenital or acquired thrombophilia Stroke (< 1 month) Elective arthroplasty Hip, pelvis, or leg fracture Acute spinal cord injury (< 1 month) Prophylaxis Regimen: Total Risk Factor Score Risk Level Prophylaxis Regimen 0-1 Low Early ambulation 2 Moderate Order ONE of the following: *Sequential Compression Device (SCD) *Heparin 5000 units SQ BID 3-4 Higher Order ONE of the following medications: *Heparin 5000 units SQ TID *Enoxaparin/Lovenox 40 mg SQ daily (WT < 150 kg, CrCl > 30 mL/min) *Enoxaparin/Lovenox 30 mg SQ daily (WT < 150 kg, CrCl > 10-29 mL/min) *Enoxaparin/Lovenox 30 mg SQ BID (WT < 150 kg, CrCl > 30 mL/min) AND/OR *Sequential Compression Device (SCD) 5 or more Highest Order ONE of the following medications: *Heparin 5000 units SQ TID (Preferred with Epidurals) *Enoxaparin/Lovenox 40 mg SQ daily (WT < 150 kg, CrCl > 30 mL/min) *Enoxaparin/Lovenox 30 mg SQ daily (WT < 150 kg, CrCl > 10-29 mL/min) *Enoxaparin/Lovenox 30 mg SQ BID (WT < 150 kg, CrCl > 30 mL/min) AND *Sequential Compression Device (SCD) Assessment and Plan Assessment (1) Intractable back pain: Code(s): M54.9 - Dorsalgia, unspecified Status: Acute (2) Lumbar disc herniation with radiculopathy: Code(s): M51.16 - Intervertebral disc disorders with radiculopathy, lumbar region Status: Chronic (3) Lumbar spinal stenosis: Code(s): M48.061 - Spinal stenosis, lumbar region without neurogenic claudication Status: Chronic (4) Breast cancer: Code(s): C50.919 - Malignant neoplasm of unspecified site of unspecified female breast Status: Chronic (5) HTN (hypertension): Code(s): I10 - Essential (primary) hypertension Status: Chronic (6) Chronic GERD: Code(s): K21.9 - Gastro-esophageal reflux disease without esophagitis Status: Chronic Plan Intractable back pain Lumbar herniated disc - Pt is a 57 y/o female with hypertension, hyperlipidemia, chronic low back pain , RA, [place] esophagus, right breast cancer, CKD, degenerative cervical disc, hypothyroidism s/p thyroidectomy who presented to the ED for evaluation of severe low back pain. This has reportedly been going on for a few weeks and has been gradually worsening with associated radiation of the pain down the back on bilateral LE. Pt is reportedly scheduled for back surgery tomorrow with Dr Servin for an L3-4 fusion with scar tissue and hardware removal from L4-S1. She was scheduled to undergo preop evaluation today however could not make it to the lab for blood draw or for US of lower extremities. No interval injury with back. No saddle anesthesia. No fecal incontinence. No urinary incontinence. The patient previously underwent an L5-S1 lumbar fusion in July [address] Servin. She was then admitted for knee pain/injury in 10/2017 and on 10/26/17 underwent a hemilaminectomy at L3-L4 with microdiscectomy performed by Dr. Servin, discharged home from rehab facility on 11/16/17. [place] [facility] [place] in 11[place]2017 for evaluation of nausea, vomiting, diarrhea , abdominal pain, and back pain. She was noted to have a mild elevation in her troponin and was noted to have ST changes in V2 V3 potentially consistent with ischemic injury and T wave inversions in 1 and aVL of concern. Pt was seen by Cardiology and underwent cardiac catheterization 11/23/[address] Noguera which noted mild nonobstructive coronary disease. - Pt received IV Dilaudid 1mg x 2 doses in the ED without any relief of her pain. - She had a bilateral LE US which were negative for DVT. - Her BP is elevated in the ED likely related to pain. - [place] 10/325 PRN and Dilaudid 2mg IV Q4H PRN for pain - Ativan PRN for anxiety - Neurosurgery has been consulted - NPO after MN - Her labs are stable in the ED - Pt is planned for surgery tomorrow. Narcotic dependency - Patient follows with outpatient pain management, Dr. Katt Schulte - Cont. methadone 10 mg PO BID, home medication - Pain control as above. Depression/anxiety - Continue home Cymbalta Right breast cancer - Patient follows with Dr. Joyce outpatient - Invasive moderately differentiated carcinoma s/p lumpectomy with sentinel lymph node biopsy and intraoperative radiation 05/24/2017, with Dr. Chavez - Continue anastrozole Hypertension - Cont. home doses of Lisinopril 40 mg daily and diltiazem 180 mg daily Hypothyroidism s/p thyroidectomy - Patient follows outpatient with Dr. Mcduffie - Continue home levothyroxine 175 mcg daily GERD [place] Esophagus - Patient follows outpatient with Dr. Rodrigez - Continue patient's home Prilosec 20 mg BID Rheumatoid arthritis - Continue home Leflunomide 20 mg daily, hydroxychloroquine DVT prophylaxis with SCDs _ (1) Lumbar spinal stenosis Qualifiers: Neurogenic claudication status: (2) Breast cancer Qualifiers: Breast location: Estrogen receptor status: Patient sex: female Laterality : right (3) HTN (hypertension) Qualifiers: Hypertension type: essential hypertension Qualified Code(s): I10 - Essential (primary) hypertension
[2018-01-10] MEDS: Methadone 10 MG Tablet PO SCH (20:10)
[2018-01-10] MEDS: Senna/Docusate Sodium 8.6/50 MG Tablet PO SCH (20:10)
[2018-01-10] MEDS ORDERED: Senna/Docusate Sodium 8.6/50 MG Tablet PO SCH (21:00)
[2018-01-10] MEDS ORDERED: Hydroxychloroquine 200 MG Tablet PO SCH (21:00)
[2018-01-10] MEDS: ceFAZolin 1 GM Premix Inj 1 GM/50 ML FROZ.PIGGY IV.SIG SCH (21:33)
[2018-01-10 22:25] LABS: Bilirubin,Urine Negative (Negative); Clarity,Urine Clear (Clear); Color,Urine Straw (Yellw/Straw); Glucose,Urine (UA) Negative (Negative); Leukocyte Esterase,Urine Negative (Negative); Nitrite,Urine Negative (Negative); Specific Gravity,Urine 1.006 (1.002-1.035); Squamous Epithelial Cell,Urine 1 /hpf (0-5)
[2018-01-10] MEDS ORDERED: Chlorhexidine Gluconate 2% 1 Pack (2 Cloths) TOPICAL ONE (23:39)
[2018-01-10] MEDS ORDERED: Sodium Chlor 0.9% Inj 500 ML IV.SIG SCH (23:45)
[2018-01-11] MEDS: Methadone 10 MG Tablet PO SCH ×2 (05:11→19:39)
[2018-01-11] MEDS: Levothyroxine 150 MCG Tablet PO SCH (05:12)
[2018-01-11] MEDS: ceFAZolin 1 GM Premix Inj 1 GM/50 ML FROZ.PIGGY IV.SIG SCH ×3 (05:12→20:39)
[2018-01-11] MEDS: Duloxetine 60 MG DR Capsule PO SCH (08:48)
[2018-01-11] MEDS: Furosemide 20 MG Tablet PO SCH (08:49)
[2018-01-11] MEDS: Lisinopril 20 MG Tablet PO SCH (08:49)
[2018-01-11] MEDS: buPROPion 150 MG 12 HR Tablet PO SCH (08:49)
[2018-01-11] MEDS: Senna/Docusate Sodium 8.6/50 MG Tablet PO SCH ×2 (08:49→20:45)
[2018-01-11] MEDS: Anastrozole 1 MG Tablet PO SCH (08:49)
[2018-01-11] MEDS: HYDROmorphone PF Inj 2 MG/ML Vial IV.PUSH PRN (08:57)
[2018-01-11] MEDS: dilTIAZem CD 180 MG Capsule PO SCH (09:00)
--- NOTE | 2018-01-11 13:52 | ECG ---
Date Performed: 01/10/2018 Time Performed: 14:22:57 PTAGE: 57 years EKG: Sinus rhythm POSSIBLE LEFT ATRIAL ENLARGEMENT NONSPECIFIC T-WAVE ABNORMALITY BORDERLINE ECG Compared to PREVIOUS TRACING rate has increased, ST T changes have normalized PREVIOUS TRACIN/1 04/01 DOCTOR: Rich Dsouza Interpretating Date/Time 01/11/2018 13:47:57
--- NOTE | 2018-01-11 16:31 | XR ---
EXAM DATE: 01/11/2018 4:23 PM EST AGE/SEX: 57 years / Female INDICATIONS: L4-L5 hardware removal and L3-L4 laminectomy and fusion. CLINICAL DATA: This is the patient's subsequent encounter. Patient reports that signs and symptoms h ave been present for 1 day and indicates a pain score of Nonresponsive. MEDICAL/SURGICAL HISTORY: None. None. COMPARISON: [facility], MR LUMBAR SPINE W AND W/O CONTRAST, 01/04/2018. . FINDINGS: Unilateral left-sided fusion hardware is noted at L3 and L4. Disc implants are also noted at L3-4, L 4-5 and L5-S1. There is stable mild to moderate compression deformity involving L4. CONCLUSION: 1. Unilateral left-sided fusion hardware is noted at L3 and L4. 2. Disc implants are also noted at L3-4, L4-5 and L5-S1. 3. Stable mild to moderate compression deformity involving L4. Electronically signed by: Roosevelt Stewart MD 01/11/2018 4:30 PM EST
--- NOTE | 2018-01-11 16:31 | P.OP ---
- Preoperative Diagnosis (1) Intractable back pain (2) Lumbar disc herniation with radiculopathy (3) Spondylolisthesis of lumbar region (4) Degenerative disc disease, lumbar (5) History of fusion of lumbar spine (6) L4 vertebral fracture Date of procedure: 01/11/18 Procedure: Lumbar L3-4 transforaminal interbody fusion; L3-4 pedicle screw fixation; removal of L4-S1 pedicle screws; L3-4 and L4-5 decompressive laminectomy with epidural scar tissue lysis; L3-4 interbody cage placement; microsurgical technique Anesthesia: GETA Surgeon: Adam Servin MD Test Borer Helper: Sandra Serrano Estimated blood loss (mL): 150 Operation and Findings: This was a difficult case due to the patient body habitus with obesity and post surgical scar tissue. The [id number] details of the procedure, indications, alternatives, risks and potential complications were fully discussed with the patient. The patient fully understood. All the questions were answered. No guarantees were given. The patient voiced requesting the procedure and provided informed consents. The patient was offered the alternative of delaying the procedure and continuing with nonsurgical management. Prior to the procedure, the surgical incision was marked in the preoperative surgical holding room, and the procedure, risks, and potential complications revisited with the patient. Placement of electrodes for intraoperative neurophysiological monitoring was completed. The patient was taken to the operative room, and following induction of general anesthesia, endotracheal intubation was performed. A Rm catheter, bilateral NATY hose and sequential compression devices were placed and kept throughout the procedure. The patient was positioned prone, over a Nicholas table over a Suhail frame. All pressure in the preoperative surgical holding room points were carefully padded. The eyes were tapped shut after ointment was applied by the anesthesiologist to prevent corneal abrasion. A James hugger was placed over the exposed lower body to maintain control of the core body temperature. The lumbar region was prepped and draped in the usual sterile fashion. Once the patient was positioned, a localizing cross-table lateral x-ray was performed with a C-arm. A left paramedian incision was outlined using the previous incision site which had healed well on the skin approximately 3cm from the midline. The skin incision made with a #10 blade. Small bleeders were controlled with the cautery. The dissection was then carried out into deeper planes and through the thoracolumbar fascia with a Bovie. The intermuscular septum was identified and the mucles were blunted dissected along the septum. The facets and transverse process at the left L3-4 levels were exposed and the proper anatomical landmarks were identified along with exposure of the L4-S1 left-sided pedicle screws/luna. A microsurgical self-retaining retractor was placed on the incision, and a localizing lateralizing cross-table x-ray was performed. Intraoperative microscope magnification used for further dissection. There was significant facet and ligamentum flavum hypertrophy noted. The left L3-4 facet was resected with a drill bit along with the residual left lamina and there was recurrent disc herniation central and eccentric to the left side fragments with superiorly inferiorly migrated also which were removed and the spinal canal and exiting nerve root decompressed. There was grade 1 L3 anterolisthesis relative to the L4. There was severe disc height collapse from the degeneration along with disc protrusion also leading to the foraminal stenosis. Epidural hemostasis was achieved with bipolar cautery and Gelfoam with thrombin after epidural scar tissue lysed at the L3-4 and L4-5 levels. Subsequently entered into the disc space at the L3-4 level with a #15 blade and paola were used for discectomy. I then placed PEEK cage packed with local autograft bone and more local autograft bone was packed adjacent to the cage in interspace for added interbody fusion. With placement of the cage, I was able to distract the interspace and opened up the foramen further bilaterally. There was solid fusion evident at the L4-5 and L5-S1 interbody and the screws were removed and the holes plugged with Gelfoam. Subsequently in order to facilitate the fusion at the L3-4 level and provide stabilization, pedicle screw fixation was undertaken using [place] spine screws on entry point at the left L3 and L4 level at the junction of the transverse process and facet and through the pedicle into the body. The L4 screw hole was packed with methyl methacrylate to provide better screw purchase. Subsequently using AP and lateral fluoroscopy tap and screw placement. The screws were then connected with a luna and locked in place with caps. The construct appeared very secure at this point. The area was then copiously irrigated with Vancomycin solution and powder. The retractors were removed and the bipolar cautery used for hemostasis. The muscle fascia was then approximated using 2-0 Vicryl interrupted stitches and then 3-0 Vicryl subcuticular stitches also placed in interrupted fashion. The final skin closure was completed with mahamed. A sterile dressing was then applied. The patient then turned in supine position, extubated and taken to recovery room. There were no intraoperative complications. All sponge and needle counts were correct at the end of procedure. Estimated blood loss about 150 ml.
[2018-01-11] MEDS ORDERED: Bisacodyl 10 MG Supp RECTAL PRN (16:32)
[2018-01-11] MEDS ORDERED: Magnesium Sulfate Inj 2 GM in Sodium Chlor 0.9% Inj 96 ML IV.SIG PRN (16:32)
[2018-01-11] MEDS ORDERED: Potassium Chlor 20 mEq Premix 20 MEQ/100 ML PIGGYBACK IV.SIG PRN (16:32)
[2018-01-11] MEDS ORDERED: Calcium Gluconate Inj 1 GM in Sodium Chlor 0.9% Inj 100 ML IV.SIG PRN (16:32)
[2018-01-11] MEDS ORDERED: Menthol 5.8 MG Lozenge BUCCAL PRN (16:32)
[2018-01-11] MEDS ORDERED: Aluminum/Magnesium/Simethacone Susp 30 ML UDC PO PRN (16:32)
[2018-01-11] MEDS ORDERED: fentaNYL Citrate Inj 100 MCG/2 ML Ampul ONE (16:38)
[2018-01-11 17:17] LABS: Baso % (Auto) 0.8 % (0.0-2.0); Eos # (Auto) 0.1 th/mm3 (0.0-0.4); Eos % (Auto) 0.9 % (0.0-4.0); Hematocrit 30.1 % (35.0-46.0); Hemoglobin 9.9 gm/dL (11.6-15.3); Lymph # (Auto) 1.5 th/mm3 (1.0-4.8); Lymph % (Auto) 23.7 % (9.0-44.0); Mean Corpuscular Hemoglobin 30.6 pg (27.0-34.0); Mean Corpuscular Volume 92.7 fL (80.0-100.0); Mean Platelet Volume 10.4 fL (7.0-11.0); Mono # (Auto) 0.6 th/mm3 (0.0-0.9); Neut # (Auto) 4.1 th/mm3 (1.8-7.7); Neut % (Auto) 64.6 % (16.0-70.0); Platelet Count 163 th/mm3 (150-450); Red Blood Count 3.25 mil/mm3 (4.00-5.30); Red Cell Distribution Width 15.2 % (11.6-17.2); White Blood Count 6.3 th/mm3 (4.0-11.0)
[2018-01-11 17:47] LABS: Anion Gap 6 meq/L (5-15); Blood Urea Nitrogen 13 mg/dL (7-18); Calcium 7.5 mg/dL (8.5-10.1); Carbon Dioxide 29.4 meq/L (21.0-32.0); Chloride 106 meq/L (98-107); Glomerular Filtration Rate Greater Than 89 mL/min (>89); Glucose,Random 103 mg/dL (74-106); Magnesium 2.1 mg/dL (1.5-2.5); Sodium 141 meq/L (136-145)
[2018-01-11] MEDS ORDERED: Vancomycin Inj 1,000 MG in Sodium Chlor 0.9% Inj 250 ML IV.SIG SCH (18:00)
[2018-01-11 20:54] LABS: Calcium 7.8 mg/dL (8.5-10.1)
[2018-01-11 20:57] LABS: Calcium-Albumin Corrected 10.6 mg/dL (8.5-10.1)
[2018-01-12] MEDS: HYDROmorphone PF Inj 2 MG/ML Vial IV.PUSH PRN ×2 (00:40→06:22)
[2018-01-12] MEDS: Zolpidem Tartrate 5 MG Tablet PO PRN ×2 (00:40→21:02)
[2018-01-12] MEDS: ceFAZolin 1 GM Premix Inj 1 GM/50 ML FROZ.PIGGY IV.SIG SCH ×2 (03:34→11:48)
[2018-01-12] MEDS: Methadone 10 MG Tablet PO SCH ×2 (05:18→17:30)
[2018-01-12] MEDS: Levothyroxine 150 MCG Tablet PO SCH (05:19)
[2018-01-12] MEDS: buPROPion 150 MG 12 HR Tablet PO SCH (08:31)
[2018-01-12] MEDS: Senna/Docusate Sodium 8.6/50 MG Tablet PO SCH ×2 (08:31→21:02)
[2018-01-12] MEDS: Duloxetine 60 MG DR Capsule PO SCH (08:32)
[2018-01-12] MEDS: Anastrozole 1 MG Tablet PO SCH (08:32)
[2018-01-12] MEDS: Lisinopril 20 MG Tablet PO SCH (08:32)
[2018-01-12] MEDS: Furosemide 20 MG Tablet PO SCH (08:32)
[2018-01-12] MEDS: dilTIAZem CD 180 MG Capsule PO SCH (08:32)
--- NOTE | 2018-01-12 10:04 | P.PNIM ---
Subjective Interval history: Patient is S/P Lumbar L3-4 transforaminal interbody fusion; L3 -4 pedicle screw fixation; removal of L4-S1 pedicle screws; L3-4 and L4-5 decompressive laminectomy with epidural scar tissue lysis; L3-4 interbody cage placement; microsurgical technique on 01/11/18 with Adam Servin MD Patient up on bed side commode Physical Exam Vital signs: Last Vital Signs Temp 99.8 F H 01/12/18 00:22 Pulse 96 H 01/12/18 03:52 Resp 18 01/12/18 06:51 BP 162/71 H 01/12/18 00:22 Pulse Ox 92 L 01/12/18 08:00 Narrative: GENERAL: This is a well-nourished, well-developed patient, in no apparent distress. CARDIOVASCULAR: Regular rate and rhythm without murmurs, gallops, or rubs. RESPIRATORY: Clear to auscultation. Breath sounds equal bilaterally. No wheezes , rales, or rhonchi. GASTROINTESTINAL: Abdomen soft, non-tender, nondistended. Normal active bowel sounds MUSCULOSKELETAL: Extremities without clubbing, cyanosis, or edema. NEURO: Alert & Oriented x4 to person, place, time, situation. Moves all ext x4 Results Labs CBC & Chem 7: 01/15/18 04:33 01/13/18 11:30 Assessment and Plan Assessment (1) Intractable back pain: Code(s): M54.9 - Dorsalgia, unspecified Status: Acute (2) Lumbar disc herniation with radiculopathy: Code(s): M51.16 - Intervertebral disc disorders with radiculopathy, lumbar region Status: Acute (3) Lumbar spinal stenosis: Code(s): M48.061 - Spinal stenosis, lumbar region without neurogenic claudication Status: Chronic (4) Breast cancer: Code(s): C50.919 - Malignant neoplasm of unspecified site of unspecified female breast Status: Chronic (5) HTN (hypertension): Code(s): I10 - Essential (primary) hypertension Status: Chronic (6) Chronic GERD: Code(s): K21.9 - Gastro-esophageal reflux disease without esophagitis Status: Chronic Plan Intractable back pain Lumbar herniated disc - Pt is a 57 y/o female with hypertension, hyperlipidemia, chronic low back pain , RA, [place] esophagus, right breast cancer, CKD, degenerative cervical disc, hypothyroidism s/p thyroidectomy who presented to the ED for evaluation of severe low back pain. This has reportedly been going on for a few weeks and has been gradually worsening with associated radiation of the pain down the back on bilateral LE. Pt is reportedly scheduled for back surgery tomorrow with Dr Servin for an L3-4 fusion with scar tissue and hardware removal from L4-S1. She was scheduled to undergo preop evaluation today however could not make it to the lab for blood draw or for US of lower extremities. No interval injury with back. No saddle anesthesia. No fecal incontinence. No urinary incontinence. The patient previously underwent an L5-S1 lumbar fusion in July [address] Servin. She was then admitted for knee pain/injury in 10/2017 and on 10/26/17 underwent a hemilaminectomy at L3-L4 with microdiscectomy performed by Dr. Servin, discharged home from rehab facility on 11/16/17. She presented back to [facility] [place] and was admitted in 11/2017 for evaluation of nausea, vomiting, diarrhea , abdominal pain, and back pain. She was noted to have a mild elevation in her troponin and was noted to have ST changes in V2 V3 potentially consistent with ischemic injury and T wave inversions in 1 and aVL of concern. Pt was seen by Cardiology and underwent cardiac catheterization 11/23/[address] Noguera which noted mild nonobstructive coronary disease. - Pt received IV Dilaudid 1mg x 2 doses in the ED without any relief of her pain. - She had a bilateral LE US which were negative for DVT. - Her BP is elevated in the ED likely related to pain. - [place] 10/325 PRN for pain - Ativan PRN for anxiety - DC'd 01/12 - Neurosurgery has been consulted - Her labs are stable in the ED - Patient is S/P Lumbar L3-4 transforaminal interbody fusion; L3-4 pedicle screw fixation; removal of L4-S1 pedicle screws; L3-4 and L4-5 decompressive laminectomy with epidural scar tissue lysis; L3-4 interbody cage placement; microsurgical technique on 01/11/18 with Adam Servin MD - patient was drowsy/sedated during Dr. Olvera's evaluation today, he DC'd IV Dilaudid and IV Ativan Narcotic dependency - Patient follows with outpatient pain management, Dr. Katt Schulte - Cont. methadone 10 mg PO BID, home medication - Pain control as above. Fever - T max 101.3 (01/12) - blood cultures x 2 ordered - CXR ordered - UA reflex C&S ordered Depression/anxiety - Continue home Cymbalta Right breast cancer - Patient follows with Dr. Joyce outpatient - Invasive moderately differentiated carcinoma s/p lumpectomy with sentinel lymph node biopsy and intraoperative radiation 05/24/2017, with Dr. Chavez - Continue anastrozole Hypertension - Cont. home doses of Lisinopril 40 mg daily and diltiazem 180 mg daily Hypothyroidism s/p thyroidectomy - Patient follows outpatient with Dr. Mcduffie - Continue home levothyroxine 175 mcg daily GERD [place] Esophagus - Patient follows outpatient with Dr. Rodrigez - Continue patient's home Prilosec 20 mg BID Rheumatoid arthritis - Continue home Leflunomide 20 mg daily, hydroxychloroquine DVT prophylaxis with SCDs Attending Attestation The exam, history, and the medical decision-making described in the above note were completed with the assistance of the mid-level provider. I reviewed and agree with the findings presented. I attest that I had a [id number] encounter with the patient on the same day, and personally performed and documented my assessment and findings in the medical record. Patient examined. Assessment and plan formulated with Tiffany Cano PA-C. I agree with the above. Progress Note: Quality VTE Deep Vein Thrombosis/Pulmonary Embolism Present on Admission: No _ (1) Lumbar spinal stenosis Qualifiers: Neurogenic claudication status: (2) Breast cancer Qualifiers: Breast location: Estrogen receptor status: Laterality: right Patient sex : female (3) HTN (hypertension) Qualifiers: Hypertension type: essential hypertension Qualified Code(s): I10 - Essential (primary) hypertension
--- NOTE | 2018-01-12 11:38 | P.PNNS ---
Subjective Interval history: Somnolent this morning from medication Physical Exam Vital signs: Vital Signs 01/11/18 14:30 01/11/18 16:20 01/11/18 16:21 Temperature 97.5 F L Pulse Rate 107 H 107 H Respiratory Rate 16 Blood Pressure 139/99 H Pulse Oximetry 97 93 L 94 L 01/11/18 16:30 01/11/18 16:45 01/11/18 16:58 Temperature Pulse Rate 101 H 101 H 99 H Respiratory Rate 16 15 15 Blood Pressure 164/77 H 154/72 H 170/82 H Pulse Oximetry 90 L 98 92 L 01/11/18 17:00 01/11/18 17:01 01/11/18 17:10 Temperature Pulse Rate 99 H 98 H 94 H Respiratory Rate 16 15 14 Blood Pressure 171/89 H 171/78 H 177/87 H Pulse Oximetry 94 L 95 97 01/11/18 17:15 01/11/18 17:30 01/11/18 17:33 Temperature Pulse Rate 92 H 92 H 92 H Respiratory Rate 16 13 13 Blood Pressure 165/78 H 179/85 H 174/79 H Pulse Oximetry 94 L 93 L 96 01/11/18 17:45 01/11/18 18:00 01/11/18 18:15 Temperature Pulse Rate 94 H 90 94 H Respiratory Rate 16 14 13 Blood Pressure 171/81 H 165/75 H 173/77 H Pulse Oximetry 93 L 94 L 94 L 01/11/18 18:30 01/11/18 19:00 01/11/18 20:00 Temperature 97.8 F Pulse Rate 91 H Respiratory Rate 16 Blood Pressure 167/77 H Pulse Oximetry 96 95 95 01/11/18 20:10 01/11/18 20:25 01/11/18 23:36 Temperature 97.7 F Pulse Rate 80 80 Respiratory Rate 18 18 Blood Pressure 144/67 H Pulse Oximetry 98 01/11/18 23:59 01/12/18 00:22 01/12/18 01:10 Temperature 99.8 F H Pulse Rate 99 H 98 H Respiratory Rate 18 18 Blood Pressure 162/71 H Pulse Oximetry 93 L 01/12/18 03:52 01/12/18 04:34 01/12/18 05:04 Temperature Pulse Rate 96 H Respiratory Rate 18 18 Blood Pressure Pulse Oximetry 01/12/18 05:48 01/12/18 06:51 01/12/18 08:00 Temperature 101.3 F H Pulse Rate 100 H Respiratory Rate 18 18 19 Blood Pressure 210/89 H Pulse Oximetry 91 L 01/12/18 10:12 01/12/18 10:48 Temperature Pulse Rate Respiratory Rate Blood Pressure 171/79 H Pulse Oximetry 97 Intake & Output 01/11/18 01/12/18 01/12/18 18:59 06:59 18:59 Intake Total 3450 / 3450 1120 / 1120 Output Total 650 / 650 800 / 800 Balance 2800 / 2800 320 / 320 Weight 89.8 kg Intake: IV 50 / 50 1100 / 1100 NS + KCl 20 mEq Inj 1,000 ML @ 1000 / 1000 100 mls/hr IV.CONT .Q10H SHERIE Rx #:[id number] Ancef 1 GM Premix Inj 1 gm In 50 / 50 100 / 100 50 ml @ 200 mls/hr IV.SIG Q8H SHERIE Rx#:[id number] Oral 20 / 20 Anesthesia Amount 3400 / 3400 Output: Urine 400 / 400 Estimated Blood Loss 150 / 150 Urine Amount (Catheter) 500 / 500 400 / 400 Indwelling Urethral Catheter 500 / 500 400 / 400 Other: Date of Last Bowel Movement 01/10/18 01/10/18 01/09/18 # Bowel Movements 0 Narrative: Dressing c/d/i Full strength UE/LE F/c x 4 - Urinary Catheter Management Indwelling Urethral Catheter Cath placed during this visit: yes, but has since been removed by the nurse Reason for continuing: Not indwelling catheter Insertion date: 01/11/18 Insertion time: 12:37 Removal date: 01/12/18 Removal time: 09:00 Assessment and Plan - Plan Pod#[address] Malathi hall and ativan mobilize once more awake with PT anticipate d/c to rehab early next week
--- NOTE | 2018-01-12 17:37 | US ---
EXAM DATE: 01/12/2018 5:35 PM EST AGE/SEX: 57 years / Female INDICATIONS: Right lower extremity redness. CLINICAL DATA: This is the patient's initial encounter. Patient reports that signs and symptoms have been present for 1 day and indicates a pain score of 3/10. MEDICAL/SURGICAL HISTORY: . Back pain. Right breast cancer. Chest pain. Depression. Foot dr op, left. GERD. Hyperlipidemia. Hypertension. Hypothyroidism. Chronic left knee pain. Rheumatoi d arthritis. Former smoker. . Right mastectomy. section x3. Right shoulder surgery. Thy roidectomy. Back surgery. Cholecystectomy. Tonsillectomy. [place] [facility] [place]/10/2018. . TECHNIQUE: Venous ultrasound of both lower extremities was performed from the inguinal ligament to t he proximal calf. Real-time, color Doppler and spectral tracing, compression and augmentation techni ques were used. FINDINGS: Normal compression of the deep venous system from the inguinal region to the proximal calf . No echogenic clot is seen. Normal response of the venous system to augmentation and respiration. CONCLUSION: 1. The study is negative for lower extremity deep venous thrombosis. Electronically signed by: Roosevelt Stewart MD 01/12/2018 5:36 PM EST
--- NOTE | 2018-01-12 17:50 | XR ---
EXAM DATE: 01/12/2018 5:46 PM EST AGE/SEX: 57 years / Female INDICATIONS: Shortness of breath. CLINICAL DATA: This is the patient's subsequent encounter. Patient reports that signs and symptoms h ave been present for 3 days and indicates a pain score of 0/10. MEDICAL/SURGICAL HISTORY: Carcinoma, breast. Gastroesophageal reflux disease. Hyperlipidemia. Hypertension. Hypothyroidism. Rheumatoid arthritis. section. Thyroidectomy. Cholecystect shirley. Tonsillectomy. COMPARISON: [facility] [place], CHEST 1V SINGLE AP, 11/22/2017. . FINDINGS: Scattered pulmonary infiltrates are noted consistent with mild pulmonary vascular congestion versus p neumonia. Clinical correlation is recommended. The heart is stable. CONCLUSION: Scattered pulmonary infiltrates bilaterally consistent with mild pulmonary vascular congestion versus pneumonia. Clinical correlation is recommended. Electronically signed by: Roosevelt Stewart MD 01/12/2018 5:48 PM EST
[2018-01-12] MEDS: Piperacil/Tazo 3.375 GM Premix 50 ML IV.SIG SCH ×2 (18:48→23:23)
[2018-01-12 19:18] LABS: Bilirubin,Urine Negative (Negative); Clarity,Urine Clear (Clear); Color,Urine Yellow (Yellw/Straw); Glucose,Urine (UA) Negative (Negative); Leukocyte Esterase,Urine Negative (Negative); Mucus,Urine Few /lpf (Occasional); Nitrite,Urine Negative (Negative); Squamous Epithelial Cell,Urine 1 /hpf (0-5)
[2018-01-13] MEDS: Methadone 10 MG Tablet PO SCH ×2 (05:38→20:38)
[2018-01-13] MEDS: Levothyroxine 150 MCG Tablet PO SCH (05:39)
[2018-01-13] MEDS: Piperacil/Tazo 3.375 GM Premix 50 ML IV.SIG SCH ×4 (05:40→23:58)
--- NOTE | 2018-01-13 09:36 | XR ---
EXAM DATE: 01/13/2018 9:22 AM EST AGE/SEX: 57 years / Female INDICATIONS: Shortness of breath. CLINICAL DATA: This is the patient's subsequent encounter. Patient reports that signs and symptoms h ave been present for 4 - 6 days and indicates a pain score of . MEDICAL/SURGICAL HISTORY: Carcinoma, breast. Gastroesophageal reflux disease. Hypertension. Hypothyroid. Rheumatoid arthritis. High cholesterol. section. Thyroidectomy. Cholecystect shirley. Tonsillectomy. Mastectomy. Right shoulder surgery. Back surgery. Tonsillectomy. [place] [facility] [place]. . FINDINGS: There is a mild patchy infiltrate in the right lung base. This is stable compared to the prior exam. Otherwise the rest the lung bailey are grossly clear. There continues to be some prominence of pulmon [place] vasculature which is stable. The heart size is stable. No significant pleural effusions are demon strated. CONCLUSION: 1. Stable mild patchy infiltrate in the right lung base. 2. Mild pulmonary venous congestion. Electronically signed by: George Toledo MD 01/13/2018 9:34 AM EST
[2018-01-13] MEDS: buPROPion 150 MG 12 HR Tablet PO SCH (09:51)
[2018-01-13] MEDS: Anastrozole 1 MG Tablet PO SCH (09:51)
[2018-01-13] MEDS: Duloxetine 60 MG DR Capsule PO SCH (09:52)
[2018-01-13] MEDS: dilTIAZem CD 180 MG Capsule PO SCH (09:52)
[2018-01-13] MEDS: Lisinopril 20 MG Tablet PO SCH (09:52)
[2018-01-13] MEDS: Senna/Docusate Sodium 8.6/50 MG Tablet PO SCH ×3 (09:52→20:45)
[2018-01-13] MEDS: Furosemide 20 MG Tablet PO SCH (09:53)
--- NOTE | 2018-01-13 12:05 | P.PNNS ---
Subjective Interval history: More awake this morning Physical Exam Vital signs: Vital Signs 01/12/18 16:00 01/12/18 19:17 01/12/18 20:00 Temperature 98.2 F 98.1 F Pulse Rate 92 H 98 H Respiratory Rate 18 18 20 Blood Pressure 129/62 158/71 H Pulse Oximetry 96 98 01/12/18 21:52 01/13/18 00:00 01/13/18 04:00 Temperature 100.7 F H 98.8 F Pulse Rate 93 H 88 Respiratory Rate 20 20 Blood Pressure 136/66 153/69 H Pulse Oximetry 96 93 L 93 L 01/13/18 08:00 Temperature 98.5 F Pulse Rate 98 H Respiratory Rate 18 Blood Pressure 184/88 H Pulse Oximetry 94 L Intake & Output 01/12/18 01/13/18 01/13/18 18:59 06:59 18:59 Intake Total 1050 / 1050 370 / 370 Balance 1050 / 1050 370 / 370 Intake: IV 1050 / 1050 150 / 150 NS + KCl 20 mEq Inj 1,000 ML @ 1000 / 1000 100 mls/hr IV.CONT .Q10H SHERIE Rx #:[id number] Zosyn 3.375 GM Premix 50 ML @ 150 / 150 100 mls/hr IV.SIG Q6H SHERIE Rx#: [id number] Ancef 1 GM Premix Inj 1 gm In 50 / 50 50 ml @ 200 mls/hr IV.SIG Q8H SHERIE Rx#:[id number] Oral 220 / 220 Other: # Voids 5 3 Date of Last Bowel Movement 01/09/18 02/09/18 Narrative: Dressing c/d/i Full strength UE/LE F/c x 4 - Urinary Catheter Management Indwelling Urethral Catheter Cath placed during this visit: yes, but has since been removed by the nurse Reason for continuing: Not indwelling catheter Insertion date: 01/11/18 Insertion time: 12:37 Removal date: 01/12/18 Removal time: 09:00 Assessment and Plan - Plan Post-op revision lumbar surgery by Dr. Servin on 01/11 Hold dilaudid and ativan mobilize once more awake with PT anticipate d/c to rehab early next week 01/13 added back lyrica, flexeril was added overnight. she is more alert today still painful but at least in a better place to have potential to work with PT
[2018-01-13] MEDS: Pregabalin 75 MG Capsule PO SCH ×2 (12:16→20:38)
[2018-01-13 13:50] LABS: Baso # (Auto) 0.1 th/mm3 (0.0-0.2); Baso % (Auto) 0.8 % (0.0-2.0); Eos # (Auto) 0.2 th/mm3 (0.0-0.4); Eos % (Auto) 2.4 % (0.0-4.0); Hematocrit 31.2 % (35.0-46.0); Hemoglobin 10.3 gm/dL (11.6-15.3); Lymph # (Auto) 1.1 th/mm3 (1.0-4.8); Lymph % (Auto) 13.2 % (9.0-44.0); Mean Corpuscular HGB Conc 33.1 % (32.0-36.0); Mean Corpuscular Hemoglobin 30.6 pg (27.0-34.0); Mean Corpuscular Volume 92.6 fL (80.0-100.0); Mean Platelet Volume 11.5 fL (7.0-11.0); Mono # (Auto) 0.9 th/mm3 (0.0-0.9); Mono % (Auto) 10.9 % (0.0-8.0); Neut # (Auto) 6.2 th/mm3 (1.8-7.7); Neut % (Auto) 72.7 % (16.0-70.0); Platelet Count 149 th/mm3 (150-450); Red Blood Count 3.37 mil/mm3 (4.00-5.30); Red Cell Distribution Width 15.2 % (11.6-17.2); White Blood Count 8.5 th/mm3 (4.0-11.0)
[2018-01-13 14:09] LABS: Anion Gap 6 meq/L (5-15); Blood Urea Nitrogen 8 mg/dL (7-18); Carbon Dioxide 28.1 meq/L (21.0-32.0); Chloride 103 meq/L (98-107); Glomerular Filtration Rate Greater Than 89 mL/min (>89); Glucose,Random 78 mg/dL (74-106); Magnesium 1.8 mg/dL (1.5-2.5); Potassium 3.7 meq/L (3.5-5.1); Sodium 137 meq/L (136-145)
--- NOTE | 2018-01-13 15:17 | P.PNIM ---
Subjective Interval history: No new complaints. Physical Exam Vital signs: Last Vital Signs Temp 99.4 F 01/13/18 12:00 Pulse 100 H 01/13/18 12:00 Resp 18 01/13/18 12:00 BP 179/81 H 01/13/18 12:00 Pulse Ox 94 L 01/13/18 12:00 Narrative: GENERAL: This is a well-nourished, well-developed patient, in no apparent distress. CARDIOVASCULAR: Regular rate and rhythm without murmurs, gallops, or rubs. RESPIRATORY: Clear to auscultation. Breath sounds equal bilaterally. No wheezes , rales, or rhonchi. GASTROINTESTINAL: Abdomen soft, non-tender, nondistended. Normal active bowel sounds MUSCULOSKELETAL: Extremities without clubbing, cyanosis, or edema. NEURO: Alert & Oriented x4 to person, place, time, situation. Moves all ext x4 Results Labs CBC & Chem 7: 01/15/18 04:33 01/13/18 11:30 Assessment and Plan Assessment (1) Intractable back pain: Code(s): M54.9 - Dorsalgia, unspecified Status: Acute (2) Lumbar disc herniation with radiculopathy: Code(s): M51.16 - Intervertebral disc disorders with radiculopathy, lumbar region Status: Acute (3) Lumbar spinal stenosis: Code(s): M48.061 - Spinal stenosis, lumbar region without neurogenic claudication Status: Chronic (4) Breast cancer: Code(s): C50.919 - Malignant neoplasm of unspecified site of unspecified female breast Status: Chronic (5) HTN (hypertension): Code(s): I10 - Essential (primary) hypertension Status: Chronic (6) Chronic GERD: Code(s): K21.9 - Gastro-esophageal reflux disease without esophagitis Status: Chronic Plan Intractable back pain Lumbar herniated disc - Pt is a 57 y/o female with hypertension, hyperlipidemia, chronic low back pain , RA, [place] esophagus, right breast cancer, CKD, degenerative cervical disc, hypothyroidism s/p thyroidectomy who presented to the ED for evaluation of severe low back pain. This has reportedly been going on for a few weeks and has been gradually worsening with associated radiation of the pain down the back on bilateral LE. Pt is reportedly scheduled for back surgery tomorrow with Dr Servin for an L3-4 fusion with scar tissue and hardware removal from L4-S1. She was scheduled to undergo preop evaluation today however could not make it to the lab for blood draw or for US of lower extremities. No interval injury with back. No saddle anesthesia. No fecal incontinence. No urinary incontinence. The patient previously underwent an L5-S1 lumbar fusion in July [address] Servin. She was then admitted for knee pain/injury in 10/2017 and on 10/26/17 underwent a hemilaminectomy at L3-L4 with microdiscectomy performed by Dr. Servin, discharged home from rehab facility on 11/16/17. [place] [facility] [place] in 11/2017 for evaluation of nausea, vomiting, diarrhea , abdominal pain, and back pain. She was noted to have a mild elevation in her troponin and was noted to have ST changes in V2 V3 potentially consistent with ischemic injury and T wave inversions in 1 and aVL of concern. Pt was seen by Cardiology and underwent cardiac catheterization 11/23/[address] Noguera which noted mild nonobstructive coronary disease. - Pt received IV Dilaudid 1mg x 2 doses in the ED without any relief of her pain. - She had a bilateral LE US which were negative for DVT. - Her BP is elevated in the ED likely related to pain. - [place] 10/325 PRN for pain - Ativan PRN for anxiety - DC'd 01/12 - Neurosurgery has been consulted - Her labs are stable in the ED - Patient is S/P Lumbar L3-4 transforaminal interbody fusion; L3-4 pedicle screw fixation; removal of L4-S1 pedicle screws; L3-4 and L4-5 decompressive laminectomy with epidural scar tissue lysis; L3-4 interbody cage placement; microsurgical technique on 01/11/18 with Adam Servin MD - more alert - anticipate d/c in 2-3 days Narcotic dependency - Patient follows with outpatient pain management, Dr. Katt Schulte - Cont. methadone 10 mg PO BID, home medication - Pain control as above. Fever - T max 101.3 (01/12) - blood cultures x 2 ordered - CXR ordered - UA reflex C&S ordered Depression/anxiety - Continue home Cymbalta Right breast cancer - Patient follows with Dr. Joyce outpatient - Invasive moderately differentiated carcinoma s/p lumpectomy with sentinel lymph node biopsy and intraoperative radiation 05/24/2017, with Dr. Chavez - Continue anastrozole Hypertension - Cont. home doses of Lisinopril 40 mg daily and diltiazem 180 mg daily Hypothyroidism s/p thyroidectomy - Patient follows outpatient with Dr. Mcduffie - Continue home levothyroxine 175 mcg daily GERD [place] Esophagus - Patient follows outpatient with Dr. Rodrigez - Continue patient's home Prilosec 20 mg BID Rheumatoid arthritis - Continue home Leflunomide 20 mg daily, hydroxychloroquine DVT prophylaxis with SCDs Progress Note: Quality VTE Deep Vein Thrombosis/Pulmonary Embolism Present on Admission: No _ (1) Lumbar spinal stenosis Qualifiers: Neurogenic claudication status: (2) Breast cancer Qualifiers: Breast location: Estrogen receptor status: Laterality: right Patient sex : female (3) HTN (hypertension) Qualifiers: Hypertension type: essential hypertension Qualified Code(s): I10 - Essential (primary) hypertension
[2018-01-13] MEDS ORDERED: Methadone 10 MG Tablet PO SCH (18:00)
[2018-01-14] MEDS: Piperacil/Tazo 3.375 GM Premix 50 ML IV.SIG SCH ×3 (05:25→17:07)
[2018-01-14] MEDS: Levothyroxine 150 MCG Tablet PO SCH (05:26)
[2018-01-14] MEDS: buPROPion 150 MG 12 HR Tablet PO SCH (08:44)
[2018-01-14] MEDS: Pregabalin 75 MG Capsule PO SCH ×2 (08:45→22:31)
[2018-01-14] MEDS: Anastrozole 1 MG Tablet PO SCH (08:45)
[2018-01-14] MEDS: Senna/Docusate Sodium 8.6/50 MG Tablet PO SCH ×2 (08:45→22:30)
[2018-01-14] MEDS: Lisinopril 20 MG Tablet PO SCH (08:45)
[2018-01-14] MEDS: Duloxetine 60 MG DR Capsule PO SCH (08:45)
[2018-01-14] MEDS: Methadone 10 MG Tablet PO SCH ×2 (08:46→22:30)
[2018-01-14] MEDS: Furosemide 20 MG Tablet PO SCH (08:47)
[2018-01-14] MEDS: dilTIAZem CD 180 MG Capsule PO SCH (08:47)
--- NOTE | 2018-01-14 10:08 | P.PNNS ---
Subjective Interval history: Pt awake. states she is much more awake today compared to last few days. She complains of pain in legs but the spasms have resolved. She states she has pain in bilateral buttocks and pain when she has to lay on her sides. She is urinating well. relates she had a BM yesterday. <Julian Richardson - Last Filed: 01/14/18 10:10> Physical Exam Vital signs: Vital Signs 01/13/18 12:00 01/13/18 16:00 01/13/18 16:32 Temperature 99.4 F 99.6 F Pulse Rate 100 H 93 H Respiratory Rate 18 18 16 Blood Pressure 179/81 H 130/60 Pulse Oximetry 94 L 94 L 01/13/18 20:00 01/13/18 20:27 01/13/18 21:08 Temperature 99.5 F Pulse Rate 83 78 Respiratory Rate 17 20 Blood Pressure 154/72 H Pulse Oximetry 95 01/13/18 22:52 01/14/18 00:00 01/14/18 00:01 Temperature 98.8 F Pulse Rate 79 72 Respiratory Rate 18 18 Blood Pressure 139/70 Pulse Oximetry 95 01/14/18 03:31 01/14/18 04:00 01/14/18 08:48 Temperature 97.9 F Pulse Rate 79 Respiratory Rate 18 19 18 Blood Pressure 142/66 H Pulse Oximetry 95 01/14/18 08:50 Temperature 97.7 F Pulse Rate 75 Respiratory Rate 17 Blood Pressure 131/60 Pulse Oximetry 98 Intake & Output 01/13/18 01/14/18 01/14/18 18:59 06:59 18:59 Intake Total 1340 / 1340 340 / 340 Balance 1340 / 1340 340 / 340 Intake: IV 1100 / 1100 100 / 100 Zosyn 3.375 GM Premix 50 ML @ 100 / 100 100 / 100 100 mls/hr IV.SIG Q6H [facility] Rx#: [id number] Oral 240 / 240 240 / 240 Other: # Voids 5 2 Date of Last Bowel Movement 01/13/18 01/13/18 01/13/18 # Bowel Movements 2 - Constitutional no acute distress, obese, cooperative - Routine HEENT Exam Head: Present: normocephalic Eye: Present: PERRL. Absent: conjunctival icterus - Routine Respiratory Exam Present: CTA bilaterally. Absent: respiratory distress, rhonchi, wheezes - Routine Cardiovascular Exam Present: RRR, S1, S2. Absent: murmur - Routine Abdominal Exam Present: soft, normoactive bowel sounds. Absent: distended, firm - Routine Skin Exam Absent: cyanosis, erythema Comments: Pt log rolled and bandage changed. Incision clean and dry without signs of infection. [place] in place. Pt and notified to have mahamed removed 14 days from surgery. - Routine Neurological Exam Present: alert (Becoming more alert. Answers questions well. Still some mild confusion.), altered mental status (Becoming more alert. Answers questions well. Still some mild confusion.), moving all extremities - Detailed Neurological Exam: Coma Scale Eye Opening: Spontaneous Verbal Response: Oriented Motor Response: Obey commands Alejandro Coma Scale Total: 15 - Routine Psychiatric Exam Present: cooperative. Absent: anxious, agitated Comments: Becoming more alert. Answers questions well. Still some mild confusion. - Urinary Catheter Management Indwelling Urethral Catheter Cath placed during this visit: yes, but has since been removed by the nurse Reason for continuing: Not indwelling catheter Insertion date: 01/11/18 Insertion time: 12:37 Removal date: 01/12/18 Removal time: 09:00 <Julian Richardson - Last Filed: 01/14/18 10:10> Vital signs: Vital Signs 01/13/18 12:00 01/13/18 16:00 01/13/18 16:32 Temperature 99.4 F 99.6 F Pulse Rate 100 H 93 H Respiratory Rate 18 18 16 Blood Pressure 179/81 H 130/60 Pulse Oximetry 94 L 94 L 01/13/18 20:00 01/13/18 20:27 01/13/18 21:08 Temperature 99.5 F Pulse Rate 83 78 Respiratory Rate 17 20 Blood Pressure 154/72 H Pulse Oximetry 95 01/13/18 22:52 01/14/18 00:00 01/14/18 00:01 Temperature 98.8 F Pulse Rate 79 72 Respiratory Rate 18 18 Blood Pressure 139/70 Pulse Oximetry 95 01/14/18 03:31 01/14/18 04:00 01/14/18 08:48 Temperature 97.9 F Pulse Rate 79 Respiratory Rate 18 19 18 Blood Pressure 142/66 H Pulse Oximetry 95 01/14/18 08:50 01/14/18 10:25 01/14/18 10:26 Temperature 97.7 F Pulse Rate 75 Respiratory Rate 17 16 16 Blood Pressure 131/60 Pulse Oximetry 98 Intake & Output 01/13/18 01/14/18 01/14/18 18:59 06:59 18:59 Intake Total 1340 / 1340 340 / 340 Balance 1340 / 1340 340 / 340 Intake: IV 1100 / 1100 100 / 100 Zosyn 3.375 GM Premix 50 ML @ 100 / 100 100 / 100 100 mls/hr IV.SIG Q6H [facility] Rx#: [id number] Oral 240 / 240 240 / 240 Other: # Voids 5 2 Date of Last Bowel Movement 01/13/18 01/13/18 01/13/18 # Bowel Movements 2 - Urinary Catheter Management Indwelling Urethral Catheter Cath placed during this visit: no <Adam Servin - Last Filed: 01/14/18 11:50> Assessment and Plan - Assessment (1) Spondylolisthesis of lumbar region Code(s): M43.16 - Spondylolisthesis, lumbar region Status: Chronic (2) History of fusion of lumbar spine Code(s): Z98.1 - Arthrodesis status Status: Chronic (3) Degenerative disc disease, lumbar Code(s): M51.36 - Other intervertebral disc degeneration, lumbar region Status : Chronic (4) Lumbar spinal stenosis Code(s): M48.061 - Spinal stenosis, lumbar region without neurogenic claudication Status: Chronic (5) Lumbar foraminal stenosis Code(s): M99.83 - Other biomechanical lesions of lumbar region Status: Acute (6) L4 vertebral fracture Code(s): S32.049A - Unspecified fracture of fourth lumbar vertebra, initial encounter for closed fracture Status: Chronic Qualifiers: Encounter type: initial encounter Fracture type: closed Fracture morphology: unspecified fracture morphology Qualified Code(s): S32.049A - Unspecified fracture of fourth lumbar vertebra, initial encounter for closed fracture (7) Left leg weakness Code(s): R29.898 - Other symptoms and signs involving the musculoskeletal system Status: Acute (8) Intractable back pain Code(s): M54.9 - Dorsalgia, unspecified Status: Acute - Plan Post-op revision lumbar surgery by Dr. Servin on 01/11 Hold dilaudid and ativan mobilize once more awake with PT anticipate d/c to rehab early next week 01/13 added back lyrica, flexeril was added overnight. she is more alert today still painful but at least in a better place to have potential to work with PT 01/14 Pt more alert this morning States spasms nearly resolved. Continue with Lyrica and current pain medication and muscle relaxants PT increase activity. Rehab hopefully today. Remove lumbar mahamed 14 days postop. <Julian Richardson - Last Filed: 01/14/18 10:10> - Attending Attestation The exam, history, and the medical decision-making described in the above note were completed with the assistance of the mid-level provider. I reviewed and agree with the findings presented. I attest that I had a [id number] encounter with the patient on the same day, and personally performed and documented my assessment and findings in the medical record. <Adam Servin - Last Filed: 01/14/18 11:50>
--- NOTE | 2018-01-14 14:19 | P.PNIM ---
Subjective Interval history: Pt more awake and alert today She complains of pain in the back of her upper thighs. The muscle relaxer does seem to help with this pain Nurse concerned that the [place] dose may be too high as the pt has had some intermittent confusion after getting [place] 10/325, 2 tablets at once. Pt had a BM last night. Physical Exam Vital signs: Last Vital Signs Temp 97.6 F 01/14/18 12:05 Pulse 81 01/14/18 12:05 Resp 18 01/14/18 13:17 BP 131/63 01/14/18 12:05 Pulse Ox 94 L 01/14/18 12:05 Narrative: GENERAL: This is a well-nourished, well-developed patient, in no apparent distress. CARDIOVASCULAR: Regular rate and rhythm without murmurs, gallops, or rubs. RESPIRATORY: Clear to auscultation. Breath sounds equal bilaterally. No wheezes , rales, or rhonchi. GASTROINTESTINAL: Abdomen soft, non-tender, nondistended. Normal active bowel sounds MUSCULOSKELETAL: Extremities without clubbing, cyanosis, or edema. NEURO: Alert & Oriented x4 to person, place, time, situation. Moves all ext x4 Results Labs CBC & Chem 7: 01/13/18 11:30 01/13/18 11:30 Imaging Venous Doppler Study 01/10/18 13:12 CONCLUSION: 1. The study is negative for bilateral lower extremity deep venous thrombosis. Lumbar Spine X-Ray 01/11/18 00:00 CONCLUSION: 1. Unilateral left-sided fusion hardware is noted at L3 and L4. 2. Disc implants are also noted at L3-4, L4-5 and L5-S1. 3. Stable mild to moderate compression deformity involving L4. Chest X-Ray 01/12/18 00:00 CONCLUSION: Scattered pulmonary infiltrates bilaterally consistent with mild pulmonary vascular congestion versus pneumonia. Clinical correlation is recommended. Venous Doppler Study 01/12/18 00:00 CONCLUSION: 1. The study is negative for lower extremity deep venous thrombosis. Chest X-Ray 01/13/18 00:00 CONCLUSION: 1. Stable mild patchy infiltrate in the right lung base. 2. Mild pulmonary venous congestion. Assessment and Plan Assessment (1) Spondylolisthesis of lumbar region: Code(s): M43.16 - Spondylolisthesis, lumbar region Status: Chronic (2) History of fusion of lumbar spine: Code(s): Z98.1 - Arthrodesis status Status: Chronic (3) Degenerative disc disease, lumbar: Code(s): M51.36 - Other intervertebral disc degeneration, lumbar region Status: Chronic (4) Lumbar spinal stenosis: Code(s): M48.061 - Spinal stenosis, lumbar region without neurogenic claudication Status: Chronic (5) Lumbar foraminal stenosis: Code(s): M99.83 - Other biomechanical lesions of lumbar region Status: Acute (6) L4 vertebral fracture: Code(s): S32.049A - Unspecified fracture of fourth lumbar vertebra, initial encounter for closed fracture Status: Chronic (7) Left leg weakness: Code(s): R29.898 - Other symptoms and signs involving the musculoskeletal system Status: Acute (8) Intractable back pain: Code(s): M54.9 - Dorsalgia, unspecified Status: Acute Plan Intractable back pain Lumbar herniated disc - Pt is a 57 y/o female with hypertension, hyperlipidemia, chronic low back pain , RA, [place] esophagus, right breast cancer, CKD, degenerative cervical disc, hypothyroidism s/p thyroidectomy who presented to the ED for evaluation of severe low back pain. This has reportedly been going on for a few weeks and has been gradually worsening with associated radiation of the pain down the back on bilateral LE. Pt is reportedly scheduled for back surgery tomorrow with Dr Servin for an L3-4 fusion with scar tissue and hardware removal from L4-S1. She was scheduled to undergo preop evaluation today however could not make it to the lab for blood draw or for US of lower extremities. No interval injury with back. No saddle anesthesia. No fecal incontinence. No urinary incontinence. The patient previously underwent an L5-S1 lumbar fusion in July [address] Servin. She was then admitted for knee pain/injury in 10/2017 and on 10/26/17 underwent a hemilaminectomy at L3-L4 with microdiscectomy performed by Dr. Servin, discharged home from rehab facility on 11/16/17. She presented back to [facility] and was admitted in 11/2017 for evaluation of nausea, vomiting, diarrhea , abdominal pain, and back pain. She was noted to have a mild elevation in her troponin and was noted to have ST changes in V2 V3 potentially consistent with ischemic injury and T wave inversions in 1 and aVL of concern. Pt was seen by Cardiology and underwent cardiac catheterization 11/23/[address] Noguera which noted mild nonobstructive coronary disease. - Pt received IV Dilaudid 1mg x 2 doses in the ED without any relief of her pain. - She had a bilateral LE US which were negative for DVT. - Her BP is elevated in the ED likely related to pain. - Decrease [place] to 5/325, 1-2 tablets PRN for pain - Ativan PRN for anxiety - DC'd 01/12 - Neurosurgery is following. - Patient underwent Lumbar L3-4 transforaminal interbody fusion; L3-4 pedicle screw fixation; removal of L4-S1 pedicle screws; L3-4 and L4-5 decompressive laminectomy with epidural scar tissue lysis; L3-4 interbody cage placement; microsurgical technique on 01/11/18 with Adam Servin MD - Patient was drowsy/sedated during Dr. Olvera's evaluation on 01/12/18, he DC'd IV Dilaudid and IV Ativan - Lyrica and Flexeril was added back on 01/13/18 - Pt more awake with medication changes but complains of continued pain in back of her upper LE but the cramping is improved. Add K-Thermia. Narcotic dependency - Patient follows with outpatient pain management, Dr. Katt Schulte - Cont. methadone 10 mg PO BID, home medication - Pain control as above. Fever - T max 101.3 on 01/12. Last fever was on 01/13/18 at midnight with Tmax 100.7 - Blood cultures (01/12) with NGTD - CXR negative - UA was negative. - Anticipate stopping Zosyn on 01/15 - Repeat CBC in AM - IS Depression/anxiety - Continue home Cymbalta Right breast cancer - Patient follows with Dr. Joyce outpatient - Invasive moderately differentiated carcinoma s/p lumpectomy with sentinel lymph node biopsy and intraoperative radiation 05/24/2017, with Dr. Chavez - Continue anastrozole Hypertension - Cont. home doses of Lisinopril 40 mg daily and diltiazem 180 mg daily Hypothyroidism s/p thyroidectomy - Patient follows outpatient with Dr. Mcduffie - Continue home levothyroxine 175 mcg daily GERD [place] Esophagus - Patient follows outpatient with Dr. Rodrigez - Continue patient's home Prilosec 20 mg BID Rheumatoid arthritis - Continue home Leflunomide 20 mg daily, hydroxychloroquine DVT prophylaxis with SCDs Progress Note: Quality VTE Deep Vein Thrombosis/Pulmonary Embolism Present on Admission: No _ (1) L4 vertebral fracture Qualifiers: Encounter type: initial encounter Fracture healing: Fracture morphology: unspecified fracture morphology Fracture type: closed Qualified Code(s): S32.049A - Unspecified fracture of fourth lumbar vertebra, initial encounter for closed fracture (2) Lumbar spinal stenosis Qualifiers: Neurogenic claudication status:
[2018-01-14] MEDS: Enoxaparin Inj 40 MG/0.4 ML Syringe SQ SCH (22:37)
[2018-01-15] MEDS: Piperacil/Tazo 3.375 GM Premix 50 ML IV.SIG SCH ×4 (00:55→17:19)
[2018-01-15 05:02] LABS: Baso # (Auto) 0.1 th/mm3 (0.0-0.2); Eos # (Auto) 0.3 th/mm3 (0.0-0.4); Eos % (Auto) 3.4 % (0.0-4.0); Hematocrit 31.1 % (35.0-46.0); Hemoglobin 10.2 gm/dL (11.6-15.3); Lymph # (Auto) 2.2 th/mm3 (1.0-4.8); Lymph % (Auto) 27.7 % (9.0-44.0); Mean Corpuscular HGB Conc 32.7 % (32.0-36.0); Mean Corpuscular Hemoglobin 29.9 pg (27.0-34.0); Mean Corpuscular Volume 91.4 fL (80.0-100.0); Mean Platelet Volume 9.9 fL (7.0-11.0); Mono # (Auto) 0.8 th/mm3 (0.0-0.9); Neut # (Auto) 4.6 th/mm3 (1.8-7.7); Neut % (Auto) 57.9 % (16.0-70.0); Platelet Count 189 th/mm3 (150-450); Red Blood Count 3.41 mil/mm3 (4.00-5.30); Red Cell Distribution Width 15.2 % (11.6-17.2); White Blood Count 7.9 th/mm3 (4.0-11.0)
[2018-01-15] MEDS: Levothyroxine 150 MCG Tablet PO SCH (07:31)
[2018-01-15] MEDS: Methadone 10 MG Tablet PO SCH ×2 (08:29→20:45)
[2018-01-15] MEDS: Furosemide 20 MG Tablet PO SCH (08:29)
[2018-01-15] MEDS: Anastrozole 1 MG Tablet PO SCH (08:30)
[2018-01-15] MEDS: Lisinopril 20 MG Tablet PO SCH (08:30)
[2018-01-15] MEDS: Duloxetine 60 MG DR Capsule PO SCH (08:30)
[2018-01-15] MEDS: Senna/Docusate Sodium 8.6/50 MG Tablet PO SCH ×2 (08:30→20:46)
[2018-01-15] MEDS: buPROPion 150 MG 12 HR Tablet PO SCH (08:30)
[2018-01-15] MEDS: Pregabalin 75 MG Capsule PO SCH ×2 (08:31→20:46)
[2018-01-15] MEDS: Enoxaparin Inj 40 MG/0.4 ML Syringe SQ SCH (08:31)
[2018-01-15] MEDS: dilTIAZem CD 180 MG Capsule PO SCH (08:31)
--- NOTE | 2018-01-15 08:51 | P.PNNS ---
Subjective Interval history: Pt awake. Complains of pain in her legs. Flexeril helping with muscle spasms. Moves LEs well. <JoaquinJulian hilliard - Last Filed: 01/15/18 08:46> Physical Exam Vital signs: Vital Signs 01/14/18 08:48 01/14/18 08:50 01/14/18 10:25 Temperature 97.7 F Pulse Rate 75 Respiratory Rate 18 17 16 Blood Pressure 131/60 Pulse Oximetry 98 01/14/18 10:26 01/14/18 12:05 01/14/18 13:17 Temperature 97.6 F Pulse Rate 81 Respiratory Rate 16 17 18 Blood Pressure 131/63 Pulse Oximetry 94 L 01/14/18 15:33 01/14/18 15:55 01/14/18 17:40 Temperature 97.6 F Pulse Rate 93 H Respiratory Rate 18 17 18 Blood Pressure 149/77 H Pulse Oximetry 99 01/14/18 19:55 01/14/18 21:30 01/14/18 23:30 Temperature 97.9 F 98.2 F Pulse Rate 84 83 Respiratory Rate 18 18 Blood Pressure 151/72 H 136/67 Pulse Oximetry 93 L 94 L 95 01/15/18 04:25 01/15/18 08:00 Temperature 98.6 F 97.9 F Pulse Rate 100 H 79 Respiratory Rate 18 17 Blood Pressure 173/84 H 160/70 H Pulse Oximetry 93 L 96 Intake & Output 01/14/18 01/15/18 01/15/18 18:59 06:59 18:59 Intake Total 100 / 100 150 / 150 50 / 50 Balance 100 / 100 150 / 150 50 / 50 Weight 94.5 kg Intake: IV 100 / 100 50 / 50 50 / 50 Zosyn 3.375 GM Premix 50 ML @ 100 / 100 50 / 50 50 / 50 100 mls/hr IV.SIG Q6H [facility] Rx#: [id number] Oral 100 / 100 Other: # Voids 2 Date of Last Bowel Movement 01/13/18 # Bowel Movements 0 - Constitutional mild distress (Pain related.), obese - Routine HEENT Exam Eye: Present: PERRL. Absent: conjunctival icterus - Routine Respiratory Exam Present: CTA bilaterally. Absent: respiratory distress, rhonchi, wheezes - Routine Cardiovascular Exam Present: RRR, S1, S2. Absent: murmur - Routine Abdominal Exam Present: soft, normoactive bowel sounds. Absent: distended, firm - Routine Skin Exam Absent: cyanosis, erythema Comments: Pt log rolled and incision clean and dry without signs of infection. [place] in place. Erythema in LEs has improved greatly after surgery. - Routine Neurological Exam Present: moving all extremities (Overall strength 4/5 in her LEs.), normal speech. Absent: alert (drowsy with some periods of confusion.) - Routine Psychiatric Exam Present: cooperative, anxious (Secondary to discomfort.), agitated (Restless secondary to discomfort.) - Urinary Catheter Management Indwelling Urethral Catheter Cath placed during this visit: yes, but has since been removed by the nurse Reason for continuing: Not indwelling catheter Insertion date: 01/11/18 Insertion time: 12:37 Removal date: 01/12/18 Removal time: 09:00 <Julian Richardson - Last Filed: 01/15/18 08:46> Vital signs: Vital Signs 01/14/18 15:33 01/14/18 15:55 01/14/18 17:40 Temperature 97.6 F Pulse Rate 93 H Respiratory Rate 18 17 18 Blood Pressure 149/77 H Pulse Oximetry 99 01/14/18 19:55 01/14/18 21:30 01/14/18 23:30 Temperature 97.9 F 98.2 F Pulse Rate 84 83 Respiratory Rate 18 18 Blood Pressure 151/72 H 136/67 Pulse Oximetry 93 L 94 L 95 01/15/18 04:25 01/15/18 08:00 01/15/18 09:00 Temperature 98.6 F 97.9 F Pulse Rate 100 H 79 Respiratory Rate 18 17 16 Blood Pressure 173/84 H 160/70 H Pulse Oximetry 93 L 96 01/15/18 11:40 Temperature 98.5 F Pulse Rate 77 Respiratory Rate 16 Blood Pressure 169/77 H Pulse Oximetry 94 L Intake & Output 01/14/18 01/15/18 01/15/18 18:59 06:59 18:59 Intake Total 100 / 100 150 / 150 50 / 50 Balance 100 / 100 150 / 150 50 / 50 Weight 94.5 kg Intake: IV 100 / 100 50 / 50 50 / 50 Zosyn 3.375 GM Premix 50 ML @ 100 / 100 50 / 50 50 / 50 100 mls/hr IV.SIG Q6H [facility] Rx#: [id number] Oral 100 / 100 Other: # Voids 2 Date of Last Bowel Movement 01/13/18 01/13/18 # Bowel Movements 0 - Urinary Catheter Management Indwelling Urethral Catheter Cath placed during this visit: no <Adam Servin - Last Filed: 01/15/18 14:55> Assessment and Plan - Assessment (1) Spondylolisthesis of lumbar region Code(s): M43.16 - Spondylolisthesis, lumbar region Status: Chronic (2) History of fusion of lumbar spine Code(s): Z98.1 - Arthrodesis status Status: Chronic (3) Degenerative disc disease, lumbar Code(s): M51.36 - Other intervertebral disc degeneration, lumbar region Status : Chronic (4) Lumbar spinal stenosis Code(s): M48.061 - Spinal stenosis, lumbar region without neurogenic claudication Status: Chronic (5) Lumbar foraminal stenosis Code(s): M99.83 - Other biomechanical lesions of lumbar region Status: Acute (6) L4 vertebral fracture Code(s): S32.049A - Unspecified fracture of fourth lumbar vertebra, initial encounter for closed fracture Status: Chronic Qualifiers: Encounter type: initial encounter Fracture type: closed Fracture morphology: unspecified fracture morphology Qualified Code(s): S32.049A - Unspecified fracture of fourth lumbar vertebra, initial encounter for closed fracture (7) Left leg weakness Code(s): R29.898 - Other symptoms and signs involving the musculoskeletal system Status: Acute (8) Intractable back pain Code(s): M54.9 - Dorsalgia, unspecified Status: Acute - Plan Post-op revision lumbar surgery by Dr. Servin on 01/11 Hold dilaudid and ativan mobilize once more awake with PT anticipate d/c to rehab early next week 01/13 added back lyrica, flexeril was added overnight. she is more alert today still painful but at least in a better place to have potential to work with PT 01/14 Pt more alert this morning States spasms nearly resolved. Continue with Lyrica and current pain medication and muscle relaxants PT increase activity. Rehab hopefully today. Remove lumbar mahamed 14 days postop. 01/15 Re[address] placement. Pt would benefit greatly from inpatient rehab to strengthen her LEs and improve gait. Continue with rehab efforts in hospital. <Piazza,Julian - Last Filed: 01/15/18 08:46> - Attending Attestation The exam, history, and the medical decision-making described in the above note were completed with the assistance of the mid-level provider. I reviewed and agree with the findings presented. I attest that I had a [id number] encounter with the patient on the same day, and personally performed and documented my assessment and findings in the medical record. Fluctuating level of pain but overall much better than preoperative state. Plan rehab placement once accepted. Discussed with . <Adam Servin - Last Filed: 01/15/18 14:55>
--- NOTE | 2018-01-15 14:34 | P.PNIM ---
Subjective Interval history: No new complaints. Pain is controlled. Pt tolerating PO intake. Physical Exam Vital signs: Last Vital Signs Temp 98.5 F 01/15/18 11:40 Pulse 77 01/15/18 11:40 Resp 16 01/15/18 11:40 BP 169/77 H 01/15/18 11:40 Pulse Ox 94 L 01/15/18 11:40 Narrative: GENERAL: This is a well-nourished, well-developed patient, in no apparent distress. CARDIOVASCULAR: Regular rate and rhythm without murmurs, gallops, or rubs. RESPIRATORY: Clear to auscultation. Breath sounds equal bilaterally. No wheezes , rales, or rhonchi. GASTROINTESTINAL: Abdomen soft, non-tender, nondistended. Normal active bowel sounds MUSCULOSKELETAL: Extremities without clubbing, cyanosis, or edema. NEURO: Alert & Oriented x4 to person, place, time, situation. Moves all ext x4 Results Labs CBC & Chem 7: 01/15/18 04:33 01/13/18 11:30 Assessment and Plan Assessment (1) Spondylolisthesis of lumbar region: Code(s): M43.16 - Spondylolisthesis, lumbar region Status: Chronic (2) History of fusion of lumbar spine: Code(s): Z98.1 - Arthrodesis status Status: Chronic (3) Degenerative disc disease, lumbar: Code(s): M51.36 - Other intervertebral disc degeneration, lumbar region Status: Chronic (4) Lumbar spinal stenosis: Code(s): M48.061 - Spinal stenosis, lumbar region without neurogenic claudication Status: Chronic (5) Lumbar foraminal stenosis: Code(s): M99.83 - Other biomechanical lesions of lumbar region Status: Acute (6) L4 vertebral fracture: Code(s): S32.049A - Unspecified fracture of fourth lumbar vertebra, initial encounter for closed fracture Status: Chronic (7) Left leg weakness: Code(s): R29.898 - Other symptoms and signs involving the musculoskeletal system Status: Acute (8) Intractable back pain: Code(s): M54.9 - Dorsalgia, unspecified Status: Acute Plan Intractable back pain Lumbar herniated disc - Pt is a 57 y/o female with hypertension, hyperlipidemia, chronic low back pain , RA, [place] esophagus, right breast cancer, CKD, degenerative cervical disc, hypothyroidism s/p thyroidectomy who presented to the ED for evaluation of severe low back pain. This has reportedly been going on for a few weeks and has been gradually worsening with associated radiation of the pain down the back on bilateral LE. Pt is reportedly scheduled for back surgery tomorrow with Dr Servin for an L3-4 fusion with scar tissue and hardware removal from L4-S1. She was scheduled to undergo preop evaluation today however could not make it to the lab for blood draw or for US of lower extremities. No interval injury with back. No saddle anesthesia. No fecal incontinence. No urinary incontinence. The patient previously underwent an L5-S1 lumbar fusion in July [address] Servin. She was then admitted for knee pain/injury in 10/2017 and on 10/26/17 underwent a hemilaminectomy at L3-L4 with microdiscectomy performed by Dr. Servin, discharged home from rehab facility on 11/16/17. She presented back to [facility] and was admitted in 11/2017 for evaluation of nausea, vomiting, diarrhea , abdominal pain, and back pain. She was noted to have a mild elevation in her troponin and was noted to have ST changes in V2 V3 potentially consistent with ischemic injury and T wave inversions in 1 and aVL of concern. Pt was seen by Cardiology and underwent cardiac catheterization 11/23/[address] Noguera which noted mild nonobstructive coronary disease. - Pt received IV Dilaudid 1mg x 2 doses in the ED without any relief of her pain. - She had a bilateral LE US which were negative for DVT. - Her BP is elevated in the ED likely related to pain. - Decrease [place] to 5/325, 1-2 tablets PRN for pain - Ativan PRN for anxiety - DC'd 01/12 - Neurosurgery is following. - Patient underwent Lumbar L3-4 transforaminal interbody fusion; L3-4 pedicle screw fixation; removal of L4-S1 pedicle screws; L3-4 and L4-5 decompressive laminectomy with epidural scar tissue lysis; L3-4 interbody cage placement; microsurgical technique on 01/11/18 with Adam Servin MD - Patient was drowsy/sedated during Dr. Olvera's evaluation on 01/12/18, he DC'd IV Dilaudid and IV Ativan - Lyrica and Flexeril was added back on 01/13/18 - Pt more awake with medication changes but complains of continued pain in back of her upper LE but the cramping is improved. Add K-Thermia. - morec comfortable - anticipate discharge 01/16/18 Narcotic dependency - Patient follows with outpatient pain management, Dr. Katt Schulte - Cont. methadone 10 mg PO BID, home medication - Pain control as above. Fever - T max 101.3 on 01/12. Last fever was on 01/13/18 at midnight with Tmax 100.7 - Blood cultures (01/12) with NGTD - CXR negative - UA was negative. - Anticipate stopping Zosyn on 01/15 - Repeat CBC in AM - IS Depression/anxiety - Continue home Cymbalta Right breast cancer - Patient follows with Dr. Joyce outpatient - Invasive moderately differentiated carcinoma s/p lumpectomy with sentinel lymph node biopsy and intraoperative radiation 05/24/2017, with Dr. Chavez - Continue anastrozole Hypertension - Cont. home doses of Lisinopril 40 mg daily and diltiazem 180 mg daily Hypothyroidism s/p thyroidectomy - Patient follows outpatient with Dr. Mcduffie - Continue home levothyroxine 175 mcg daily GERD [place] Esophagus - Patient follows outpatient with Dr. Rodrigez - Continue patient's home Prilosec 20 mg BID Rheumatoid arthritis - Continue home Leflunomide 20 mg daily, hydroxychloroquine DVT prophylaxis with SCDs Progress Note: Quality VTE Deep Vein Thrombosis/Pulmonary Embolism Present on Admission: No _ (1) L4 vertebral fracture Qualifiers: Encounter type: initial encounter Fracture healing: Fracture morphology: unspecified fracture morphology Fracture type: closed Qualified Code(s): S32.049A - Unspecified fracture of fourth lumbar vertebra, initial encounter for closed fracture (2) Lumbar spinal stenosis Qualifiers: Neurogenic claudication status:
[2018-01-16] MEDS: Piperacil/Tazo 3.375 GM Premix 50 ML IV.SIG SCH ×2 (00:55→06:09)
[2018-01-16] MEDS: Levothyroxine 150 MCG Tablet PO SCH (05:30)
[2018-01-16] MEDS: Lisinopril 20 MG Tablet PO SCH (08:17)
[2018-01-16] MEDS: Senna/Docusate Sodium 8.6/50 MG Tablet PO SCH (08:18)
[2018-01-16] MEDS: buPROPion 150 MG 12 HR Tablet PO SCH (08:18)
[2018-01-16] MEDS: Methadone 10 MG Tablet PO SCH (08:18)
[2018-01-16] MEDS: dilTIAZem CD 180 MG Capsule PO SCH (08:19)
[2018-01-16] MEDS: Furosemide 20 MG Tablet PO SCH (08:19)
[2018-01-16] MEDS: Pregabalin 75 MG Capsule PO SCH (08:19)
[2018-01-16] MEDS: Duloxetine 60 MG DR Capsule PO SCH (08:19)
[2018-01-16] MEDS: Anastrozole 1 MG Tablet PO SCH (08:19)
[2018-01-16] MEDS: Enoxaparin Inj 40 MG/0.4 ML Syringe SQ SCH (08:20)
--- NOTE | 2018-01-16 09:50 | P.DS ---
DS: Providers Date of admission: 01/10/18 15:25 Primary care physician: Juhi Cooper MD Consults: 01/10/18 15:21 Consult to Neurosurgery Routine Consulting Provider: Adam Servin Preferred Clinic Director:: Adam Servin Reason for Consultation: LUMBAR STENOSIS INTRACTABLE PAIN Notified:: Office Spoke with:: MED Date Notified:: 01/10/18 Time Notified:: 15:27 Ordering Provider: RUBIN Brief History from admission: Mrs. Dobbs is a 57 y/o female with hypertension, hyperlipidemia, chronic low back pain, RA, [place] esophagus, right breast cancer, CKD, degenerative cervical disc, hypothyroidism s/p thyroidectomy who presented to the ED for evaluation of severe low back pain. This has reportedly been going on for a few weeks and has been gradually worsening with associated radiation of the pain down the back on bilateral LE. Pt is reportedly scheduled for back surgery tomorrow with Dr Servin for an L3-4 fusion with scar tissue and hardware removal from L4-S1. She was scheduled to undergo preop evaluation today however could not make it to the lab for blood draw or for US of lower extremities. No interval injury with back. No saddle anesthesia. No fecal incontinence. No urinary incontinence. The patient previously underwent an L5- S1 lumbar fusion in July [address] Servin. She was then admitted for knee pain /injury in 10/2017 and on 10/26/17 underwent a hemilaminectomy at L3-L4 with microdiscectomy performed by Dr. Servin, discharged home from rehab facility on 11/16/17. She presented back to [facility] and was admitted in 11/2017 for evaluation of nausea, vomiting, diarrhea, abdominal pain, and back pain. She was noted to have a mild elevation in her troponin and was noted to have ST changes in V2 V3 potentially consistent with ischemic injury and T wave inversions in 1 and aVL of concern. Pt was seen by Cardiology and underwent cardiac catheterization 01/[address] Noguera which noted mild nonobstructive coronary disease. Pt evaluated in the ED and is quite painful and tearful. She received IV Dilaudid 1mg x 2 doses in the ED without any relief of her pain. She had a bilateral LE US which were negative for DVT. Her BP is elevated in the ED likely related to pain. She denies any chest pain, SOB, palpitations, dizziness , weakness, nausea/vomiting, or diarrhea. PAST MEDICAL HISTORY: [place] esophagus Right breast invasive moderately differentiated carcinoma s/p lumpectomy with sentinel lymph node biopsy and intraoperative radiation 05/24/2017 Chronic Kidney disease Colon polyps Degenerative cervical disc Diverticulosis GERD (gastroesophageal reflux disease) Hemorrhoids Hypertension Hypothyroidism s/p thyroidectomy Rheumatoid arthritis PAST SURGICAL HISTORY: 3 sections Cholecystectomy Colonoscopy - 2014 EGD with biopsy - 2014 Shoulder surgery Thyroidectomy Tonsillectomy Right breast lumpectomy with sentinel lymph node biopsy and intraoperative radiation 05/24/2017 FAMILY HISTORY: Ms. Dobbs's mother is alive. Her father is . Ms. Dobbs has 2 sons: 2 alive. She has 1 daughter who is alive. SOCIAL HISTORY: Ms. Dobbs is . Occasional ETOH use She was a daily smoker who has smoked 1.0 pack/day for 30 years reports that she has quit smoking, now using E-cigarettes DS: Diagnosis Discharge Diagnosis (1) Spondylolisthesis of lumbar region: Status: Chronic (2) History of fusion of lumbar spine: Status: Chronic (3) Degenerative disc disease, lumbar: Status: Chronic (4) Lumbar spinal stenosis: Status: Chronic (5) Lumbar foraminal stenosis: Status: Acute (6) L4 vertebral fracture: Status: Chronic (7) Left leg weakness: Status: Acute (8) Intractable back pain: Status: Acute DS: Summary Intractable back pain Lumbar herniated disc - Pt is a 57 y/o female with hypertension, hyperlipidemia, chronic low back pain , RA, [place] esophagus, right breast cancer, CKD, degenerative cervical disc, hypothyroidism s/p thyroidectomy who presented to the ED for evaluation of severe low back pain. This has reportedly been going on for a few weeks and has been gradually worsening with associated radiation of the pain down the back on bilateral LE. Pt is reportedly scheduled for back surgery tomorrow with Dr Servin for an L3-4 fusion with scar tissue and hardware removal from L4-S1. She was scheduled to undergo preop evaluation today however could not make it to the lab for blood draw or for US of lower extremities. No interval injury with back. No saddle anesthesia. No fecal incontinence. No urinary incontinence. The patient previously underwent an L5-S1 lumbar fusion in July [address] Servin. She was then admitted for knee pain/injury in 10/2017 and on 10/26/17 underwent a hemilaminectomy at L3-L4 with microdiscectomy performed by Dr. Servin, discharged home from rehab facility on 11/16/17. She presented back to [facility] and was admitted in 11/2017 for evaluation of nausea, vomiting, diarrhea , abdominal pain, and back pain. She was noted to have a mild elevation in her troponin and was noted to have ST changes in V2 V3 potentially consistent with ischemic injury and T wave inversions in 1 and aVL of concern. Pt was seen by Cardiology and underwent cardiac catheterization 11/23/[address] Noguera which noted mild nonobstructive coronary disease. - Pt received IV Dilaudid 1mg x 2 doses in the ED without any relief of her pain. - She had a bilateral LE US which were negative for DVT. - Her BP is elevated in the ED likely related to pain. - Decrease [place] to 5/325, 1-2 tablets PRN for pain - Ativan PRN for anxiety - DC'd 01/12 - Neurosurgery is following. - Patient underwent Lumbar L3-4 transforaminal interbody fusion; L3-4 pedicle screw fixation; removal of L4-S1 pedicle screws; L3-4 and L4-5 decompressive laminectomy with epidural scar tissue lysis; L3-4 interbody cage placement; microsurgical technique on 01/11/18 with Adam Servin MD - Patient was drowsy/sedated during Dr. Olvera's evaluation on 01/12/18, he DC'd IV Dilaudid and IV Ativan - Lyrica and Flexeril was added back on 01/13/18 - Pt more awake with medication changes but complains of continued pain in back of her upper LE but the cramping is improved. Add K-Thermia. - more comfortable - anticipate discharge 01/16/18 Narcotic dependency - Patient follows with outpatient pain management, Dr. Katt Schulte - Cont. methadone 10 mg PO BID, home medication - Pain control as above. Fever - T max 101.3 on 01/12. Last fever was on 01/13/18 at midnight with Tmax 100.7 - Blood cultures (01/12) with NGTD - CXR negative - UA was negative. - Zosyn (01/12 - 01/15) - IS Depression/anxiety - Continue home Cymbalta Right breast cancer - Patient follows with Dr. Joyce outpatient - Invasive moderately differentiated carcinoma s/p lumpectomy with sentinel lymph node biopsy and intraoperative radiation 05/24/2017, with Dr. Chavez - Continue anastrozole Hypertension - Cont. home doses of Lisinopril 40 mg daily and diltiazem 180 mg daily Hypothyroidism s/p thyroidectomy - Patient follows outpatient with Dr. Mcduffie - Continue home levothyroxine 175 mcg daily GERD [place] Esophagus - Patient follows outpatient with Dr. Rodrigez - Continue patient's home Prilosec 20 mg BID Rheumatoid arthritis - Continue home Leflunomide 20 mg daily, hydroxychloroquine DVT prophylaxis with SCDs Time Spent with Patient Total time spent providing and/or coordinating discharge services: Quality: VTE Deep Vein Thrombosis/Pulmonary Embolism Present on Admission: No Exam Narrative Exam Narrative: GENERAL: This is a well-nourished, well-developed patient, in no apparent distress. CARDIOVASCULAR: Regular rate and rhythm without murmurs, gallops, or rubs. RESPIRATORY: Clear to auscultation. Breath sounds equal bilaterally. No wheezes , rales, or rhonchi. GASTROINTESTINAL: Abdomen soft, non-tender, nondistended. Normal active bowel sounds MUSCULOSKELETAL: Extremities without clubbing, cyanosis, or edema. NEURO: Alert & Oriented x4 to person, place, time, situation. Moves all ext x4 Results Labs on day of discharge: Preliminary micro results at discharge 01/12/18 13:10 Aerobic Blood Culture - Preliminary Blood - Peripheral No growth in 3 days Anaerobic Blood Culture - Preliminary No growth in 3 days 01/12/18 13:05 Aerobic Blood Culture - Preliminary Blood - Peripheral No growth in 3 days Anaerobic Blood Culture - Preliminary No growth in 3 days Impressions ITS Impressions Lumbar Spine X-Ray 01/11/18 00:00 CONCLUSION: 1. Unilateral left-sided fusion hardware is noted at L3 and L4. 2. Disc implants are also noted at L3-4, L4-5 and L5-S1. 3. Stable mild to moderate compression deformity involving L4. Venous Doppler Study 01/12/18 00:00 CONCLUSION: 1. The study is negative for lower extremity deep venous thrombosis. Chest X-Ray 01/13/18 00:00 CONCLUSION: 1. Stable mild patchy infiltrate in the right lung base. 2. Mild pulmonary venous congestion. Discharge Plan Discharge Disposition Patient Disposition: 62 Rehab Inpatient Discharge Condition Condition: Stable Discharge Order Discharge Orders: Discharge Order (Routine); Ordered 01/16/18 Ordered By: Tiffany Cano Discharge Details Anticipated Discharge Date: 01/16/18 Physicians Team ED Provider: Sanjay Lane Primary Care Provider: Juhi Cooper Attending Provider: Ceferino Diaz Other Providers: Adam Servin Rxs /Orders / Referrals /Forms Prescriptions: Continue levothyroxine 175 mcg Tablet 175 mcg PO DAILY RF: 0 anastrozole 1 mg Tablet 1 mg PO DAILY RF: 0 clonidine HCl 0.1 mg Tablet 0.1 mg PO BID RF: 0 diltiazem HCl 180 mg Capsule,Extended Release 24 Hr 180 mg PO DAILY RF: 0 sucralfate 1 gram Tablet 1 g PO Q6H RF: 0 methylprednisolone 4 mg Tablet 4 mg PO DAILY RF: 0 leflunomide 20 mg Tablet 20 mg PO DAILY RF: 0 pantoprazole 40 mg Tablet,Delayed Release (Dr/Ec) 40 mg PO DAILY RF: 0 simvastatin 20 mg Tablet 20 mg PO QPM RF: 0 furosemide 20 mg Tablet 20 mg PO DAILY RF: 0 hydroxychloroquine 200 mg Tablet 200 mg PO BID RF: 0 lisinopril 40 mg Tablet 40 mg PO DAILY RF: 0 bupropion HCl 300 mg Tablet Extended Release 24 Hr 300 mg PO QAM RF: 0 duloxetine 60 mg Capsule,Delayed Release(Dr/Ec) 120 mg PO DAILY RF: 0 cholecalciferol (vitamin D3) [Vitamin D3] 5,000 unit Tablet 5,000 unit PO DAILY RF: 0 methadone 10 mg Tablet 10 mg PO Q12H RF: 0 Discontinued zolpidem 5 mg Tablet 5 mg PO HS PRN (Reason: Insomnia) Qty: 30 RF: 0 celecoxib 200 mg Capsule 200 mg PO DAILY RF: 0 diazepam 5 mg Tablet 5 mg PO TID-QID PRN (Reason: Anxiety) RF: 0 No Action cyclobenzaprine 10 mg tablet 10 mg PO Q8H RF: 0 sennosides-docusate sodium [Senna Plus] 8.6-50 mg tablet 1 tab PO BID RF: 0 ondansetron [Zofran ODT] 4 mg tablet,disintegrating 4 mg PO Q8H RF: 0 pregabalin [Lyrica] 75 mg capsule 75 mg PO BID RF: 0 Referrals: Adam Servin MD [NEUROSURGERY] - See Instructions (follow up in 2 weeks) Juhi Cooper MD [Primary Care Provider] - See Instructions (follow up in 1 week) Discharge Instructions Patient Printed Instructions: Hydroxychloroquine (By mouth), Diltiazem (By mouth), Lisinopril (By mouth), Furosemide (By mouth), Sucralfate (By mouth), Levothyroxine (By mouth), Prednisone (By mouth), Methadone (By mouth), Simvastatin (By mouth), Leflunomide (By mouth), Pantoprazole (By mouth), Duloxetine (By mouth), Pregabalin (By mouth) Status ED Status: Left Department Discharge Information Discharge Date/Time: 01/16/18 15:45 Discharge Location: [facility]
--- NOTE | 2018-01-16 11:00 | P.PNNS ---
Subjective Interval history: Pt much more awake today. They say they held the second pain pill and she is feeling better. She still complains of leg pain right more than left, mostly in the anterior leg and right buttock. She also complains of right knee pain but no history of trauma. Physical Exam Vital signs: Vital Signs 01/15/18 11:40 01/15/18 12:45 01/15/18 16:10 Temperature 98.5 F 98.9 F Pulse Rate 77 71 Respiratory Rate 16 16 16 Blood Pressure 169/77 H 151/72 H Pulse Oximetry 94 L 97 01/15/18 17:36 01/15/18 18:36 01/15/18 19:50 Temperature 99.2 F Pulse Rate 71 Respiratory Rate 18 18 Blood Pressure 184/84 H Pulse Oximetry 97 95 01/15/18 23:40 01/16/18 04:00 01/16/18 08:00 Temperature 98.4 F 97.7 F 98.8 F Pulse Rate 69 74 66 Respiratory Rate 18 18 16 Blood Pressure 194/86 H 169/77 H 179/86 H Pulse Oximetry 95 94 L 97 01/16/18 10:02 Temperature Pulse Rate Respiratory Rate 16 Blood Pressure Pulse Oximetry Intake & Output 01/15/18 01/16/18 01/16/18 18:59 06:59 18:59 Intake Total 150 / 150 520 / 520 100 / 100 Balance 150 / 150 520 / 520 100 / 100 Weight 83.5 kg Intake: IV 150 / 150 100 / 100 Zosyn 3.375 GM Premix 50 ML @ 150 / 150 100 / 100 100 mls/hr IV.SIG Q6H SHERIE Rx#: [id number] Oral 420 / 420 100 / 100 Other: # Voids 2 Date of Last Bowel Movement 01/13/18 01/13/18 01/13/18 # Bowel Movements 0 - Constitutional no acute distress, cooperative - Routine HEENT Exam Head: Present: normocephalic Eye: Present: PERRL - Routine Respiratory Exam Present: CTA bilaterally. Absent: respiratory distress, rhonchi, wheezes - Routine Cardiovascular Exam Present: RRR, S1, S2. Absent: murmur - Routine Abdominal Exam Present: soft, normoactive bowel sounds. Absent: distended, firm - Routine Extremities Exam Absent: cyanosis, edema - Routine Skin Exam Absent: cyanosis, erythema - Routine Neurological Exam Present: alert, sensory deficit (improving.), motor deficit (Improving strength in LEs. Pt has not ambulated much.), moving all extremities, normal speech. Absent: altered mental status - Routine Psychiatric Exam Present: normal affect, cooperative. Absent: anxious, agitated - Urinary Catheter Management Indwelling Urethral Catheter Cath placed during this visit: yes, but has since been removed by the nurse Reason for continuing: Not indwelling catheter Insertion date: 01/11/18 Insertion time: 12:37 Removal date: 01/12/18 Removal time: 09:00 Assessment and Plan - Assessment (1) Spondylolisthesis of lumbar region Code(s): M43.16 - Spondylolisthesis, lumbar region Status: Chronic (2) History of fusion of lumbar spine Code(s): Z98.1 - Arthrodesis status Status: Chronic (3) Degenerative disc disease, lumbar Code(s): M51.36 - Other intervertebral disc degeneration, lumbar region Status : Chronic (4) Lumbar spinal stenosis Code(s): M48.061 - Spinal stenosis, lumbar region without neurogenic claudication Status: Chronic (5) Lumbar foraminal stenosis Code(s): M99.83 - Other biomechanical lesions of lumbar region Status: Acute (6) L4 vertebral fracture Code(s): S32.049A - Unspecified fracture of fourth lumbar vertebra, initial encounter for closed fracture Status: Chronic Qualifiers: Encounter type: initial encounter Fracture type: closed Fracture morphology: unspecified fracture morphology Qualified Code(s): S32.049A - Unspecified fracture of fourth lumbar vertebra, initial encounter for closed fracture (7) Left leg weakness Code(s): R29.898 - Other symptoms and signs involving the musculoskeletal system Status: Acute (8) Intractable back pain Code(s): M54.9 - Dorsalgia, unspecified Status: Acute - Plan Post-op revision lumbar surgery by Dr. Servin on 01/11 Hold dilaudid and ativan mobilize once more awake with PT anticipate d/c to rehab early next week 01/13 added back lyrica, flexeril was added overnight. she is more alert today still painful but at least in a better place to have potential to work with PT 01/14 Pt more alert this morning States spasms nearly resolved. Continue with Lyrica and current pain medication and muscle relaxants PT increase activity. Rehab hopefully today. Remove lumbar mahamed 14 days postop. 01/15 Rehab placement. Pt would benefit greatly from inpatient rehab to strengthen her LEs and improve gait. Continue with rehab efforts in hospital. 01/16/18 Pt more alert today after only getting one pain pill per her . Will continue with current treatment of one pain pill. Acute rehab placement today.
== END 2018-01-16 15:45 ==
LOC: NEPE 12:06 → NEDA 15:25 → N06 19:40
PROVIDERS: ADMIT Hospitalist; ATTEND Hospitalist
DX: Z88.1 Allergy status to other antibiotic agents; G89.29 Other chronic pain; Z68.27 Body mass index [BMI] 27.0-27.9, adult; Z91.040 Latex allergy status; Z88.5 Allergy status to narcotic agent; F11.20 Opioid dependence, uncomplicated; M25.561 Pain in right knee; K21.9 Gastro-esophageal reflux disease without esophagitis; F41.9 Anxiety disorder, unspecified; R50.9 Fever, unspecified; I12.9 Hypertensive chronic kidney disease with stage 1 through stage 4 chronic kidney disease, or unspecified chronic kidney disease; M43.16 Spondylolisthesis, lumbar region; F32.9 Major depressive disorder, single episode, unspecified; M62.838 Other muscle spasm; Z86.010 Personal history of colon polyps; N18.9 Chronic kidney disease, unspecified; M50.30 Other cervical disc degeneration, unspecified cervical region; C50.911 Malignant neoplasm of unspecified site of right female breast; E66.9 Obesity, unspecified; F17.200 Nicotine dependence, unspecified, uncomplicated; K57.90 Diverticulosis of intestine, part unspecified, without perforation or abscess without bleeding; Z79.890 Hormone replacement therapy; Z79.899 Other long term (current) drug therapy; K22.70 Barrett's esophagus without dysplasia; M06.9 Rheumatoid arthritis, unspecified; R29.898 Other symptoms and signs involving the musculoskeletal system; S32.049A Unspecified fracture of fourth lumbar vertebra, initial encounter for closed fracture; M48.061 Spinal stenosis, lumbar region without neurogenic claudication; E89.0 Postprocedural hypothyroidism; E78.5 Hyperlipidemia, unspecified; M51.16 Intervertebral disc disorders with radiculopathy, lumbar region